=== PATIENT | female | born 1945 | race Caucasian/White ===

== ENCOUNTER 2019-01-10 19:12 | Inpatient (IN) | payer MEDICARE, OTHER ==
[2019-01-10] MEDS ORDERED: LORazepam 2 MG/ML SDV IVPUSH ONE (20:19)
--- NOTE | 2019-01-10 20:20 | EDM.PDOC ---
<BridgerAshley - Last Filed: 01/10/19 22:16> ED HPI GENERAL MEDICAL PROBLEM - General Chief Complaint: Gastrointestinal Problem Stated Complaint: NAUSEA/THROWING UP Time Seen by Provider: 01/10/19 20:00 Source of Information: Reports: Patient, Family History Limitations: Reports: No Limitations - History of Present Illness INITIAL COMMENTS - FREE TEXT/NARRATIVE: Corina Dimas is a 73 year old female who presents to the ED with concerns of nausea and vomiting, which started 1 day ago. She is accompanied by her . She states she has had chronic diarrhea for about 2 years. She states that she feels her vision has not be normal as she cannot focus on objects. She notes the room appears to be spinning. Her states her shakiness occurred a couple of days ago. Her states that she did fall 1 day ago but did not hit her head or lose consciousness. She states she does have epigastric discomfort. She denies abdominal pain, fever, chills, and changes in urination. She does have a past history of seizures. - Related Data Allergies Allergy/AdvReac Type Severity Reaction Status Date / Time codeine AdvReac Nausea Verified 01/10/19 19:35 hydromorphone HCl AdvReac Hallucinati Verified 01/10/19 19:35 [From Dilaudid] ons Home Meds: Home Meds ClonazePAM [KlonoPIN] 1 mg PO BEDTIME 11/27/13 [History] FLUoxetine [PROzac] 80 mg PO DAILY 11/27/13 [History] Metoprolol Tartrate [Lopressor] 25 mg PO Q12HR 11/27/13 [History] Pantoprazole Sodium [Protonix] 40 mg PO DAILY 11/27/13 [History] Verapamil [Verelan] 240 mg PO DAILY 11/27/13 [History] lamoTRIgine [LaMICtal] 175 mg PO BID 11/27/13 [History] Hydrochlorothiazide 25 mg PO DAILY 02/18/16 [History] Famotidine 20 mg PO DAILY 01/10/19 [History] Hyoscyamine [Levsin] 0.125 mg SL TID PRN 01/10/19 [History] ED ROS GENERAL - Review of Systems Review Of Systems: See Below Constitutional: Reports: Weakness, Night Sweats, Decreased Appetite. Denies: Fever, Chills HEENT: Reports: Vertigo, Vision Change Respiratory: Reports: No Symptoms Cardiovascular: Reports: No Symptoms GI/Abdominal: Reports: Diarrhea, Nausea, Vomiting. Denies: Bloody Stool Musculoskeletal: Reports: Muscle Pain, Other (pain in bilateral legs) Neurological: Reports: Tremors. Denies: Headache Psychiatric: Reports: Anxiety ED EXAM, GI/ABD - Physical Exam Exam: See Below Exam Limited By: No Limitations General Appearance: Alert, WD/WN, Anxious, Mild Distress Ears: Normal External Exam, Normal Canal, Normal TMs, Hearing Loss Nose: Normal Inspection, Normal Mucosa Throat/Mouth: Normal Inspection, Normal Lips, Normal Oropharynx Head: Atraumatic, Normocephalic Neck: Normal Inspection, Supple, Non-Tender Respiratory/Chest: No Respiratory Distress, Lungs Clear, No Accessory Muscle Use Cardiovascular: Regular Rate, Rhythm, Other (Murmur noted) GI/Abdominal Exam: Normal Bowel Sounds, Soft, Non-Tender, No Distention, No Mass Extremities: Normal Inspection, Non-Tender, No Pedal Edema Neurological: Alert, CN II-XII Intact, No Motor/Sensory Deficits, Other (Unable to preform finger to nose cerebellar test) Psychiatric: Anxious Skin Exam: Warm, Intact, No Rash Course - Vital Signs Last Recorded V/S: Last Vital Signs Temp 97.4 F 01/11/19 03:00 Pulse 73 01/11/19 03:00 Resp 18 01/11/19 03:00 BP 89/54 L 01/11/19 03:00 Pulse Ox 95 01/11/19 03:00 - Orders/Labs/Meds Orders: Active Orders 24 hr Category Date Time Status Sodium Chloride 0.9% [Normal Saline] 1,000 ml Med 01/10/19 20:30 Active IV ASDIRECTED Sodium Chloride 0.9% [Normal Saline] 1,000 ml Med 01/10/19 21:44 Active IV ONETIME Medication Orders Acetaminophen (Tylenol) 650 mg PO Q4H PRN PRN Reason: Pain (Mild 1-3)/fever Albuterol (Proventil Neb Soln) 2.5 mg NEB Q4H PRN PRN Reason: Shortness Of Breath/wheezing Clonazepam (Klonopin) 1 mg PO BEDTIME [facility] Last Admin: 01/11/19 00:37 Dose: 1 mg Docusate Sodium (Colace) 100 mg PO BID PRN PRN Reason: Constipation Fluoxetine HCl (Prozac) 80 mg PO DAILY [facility] Hydrochlorothiazide (Hydrochlorothiazide) 25 mg PO DAILY [facility] Hyoscyamine (Hyomax-Sl) 0.125 mg SL TID PRN PRN Reason: Nausea Sodium Chloride (Normal Saline) 1,000 mls @ 1,000 mls/hr IV ASDIRECTED [facility] Last Admin: 01/10/19 20:44 Dose: 1,000 mls/hr Sodium Chloride (Normal Saline) 1,000 mls @ 125 mls/hr IV ONETIME ONE Stop: 01/11/19 05:43 Last Admin: 01/10/19 21:45 Dose: 125 mls/hr Influenza Virus Vaccine (Fluzone High-Dose Syringe) 180 mcg IM .ONCE ONE Stop: 01/12/19 09:01 Lamotrigine (Lamotrigine) 100 mg PO BID [facility] Last Admin: 01/11/19 00:37 Dose: 100 mg Lamotrigine (Lamotrigine) 75 mg PO BID [facility] Last Admin: 01/11/19 00:52 Dose: 75 mg Lorazepam (Ativan) 1 mg IV Q4H PRN PRN Reason: Anxiety Metoprolol Tartrate (Lopressor) 25 mg PO BID [facility] Last Admin: 01/11/19 00:37 Dose: 25 mg Ondansetron HCl (Zofran Odt) 4 mg PO Q6H PRN PRN Reason: Nausea able to take PO Ondansetron HCl (Zofran) 4 mg IV Q4H PRN PRN Reason: Nausea/Vomiting Pantoprazole Sodium (Protonix Iv) 40 mg IV BID [facility] Last Admin: 01/11/19 00:34 Dose: 40 mg Verapamil HCl (Calan Sr) 240 mg PO DAILY [facility] Labs: Laboratory Tests 01/10/19 01/10/19 01/10/19 Range/Units 20:19 20:19 20:43 WBC 12.1 H (4.5-11.0) K/uL RBC 3.18 L (3.30-5.50) M/uL Hgb 8.1 L D (12.0-15.0) g/dL Hct 26.0 L (36.0-48.0) % MCV 82 (80-98) fL MCH 26 L (27-31) pg MCHC 31 L (32-36) % Plt Count 764 H (150-400) K/uL Neut % (Auto) 78 H (36-66) % Lymph % (Auto) 10 L (24-44) % Door % (Auto) 11 H (2-6) % Eos % (Auto) 1 L (2-4) % Baso % (Auto) 0 (0-1) % Sodium 130 L (140-148) mmol/L Potassium 3.8 (3.6-5.2) mmol/L Chloride 96 L (100-108) mmol/L Carbon Dioxide 26 (21-32) mmol/L Anion Gap 11.8 (5.0-14.0) mmol/L BUN 21 H (7-18) mg/dL Creatinine 1.2 H (0.6-1.0) mg/dL Est Cr Clr Drug Dosing 30.89 mL/min Estimated GFR (MDRD) 44 L (>60) Glucose 122 H (74-106) mg/dL Calcium 8.2 L (8.5-10.1) mg/dL Total Bilirubin 0.3 (0.2-1.0) mg/dL AST 14 L (15-37) U/L ALT 11 L (12-78) U/L Alkaline Phosphatase 142 H (46-116) U/L Total Protein 7.0 (6.4-8.2) g/dL Albumin 2.4 L (3.4-5.0) g/dL Globulin 4.6 H (2.3-3.5) g/dL Albumin/Globulin Ratio 0.5 L (1.2-2.2) Lipase 95 (73-393) U/L TSH, Ultra Sensitive 4.019 H (0.358-3.740) uIU/mL Meds: Medications Generic Name Dose Route Start Last Admin Trade Name Freq PRN Reason Stop Dose Admin Acetaminophen 650 mg 01/10/19 23:23 Tylenol PO Q4H PRN Pain (Mild 1-3)/fever Albuterol 2.5 mg 01/10/19 23:23 Proventil Neb Soln NEB Q4H PRN Shortness Of Breath/wheezing Clonazepam 1 mg 01/10/19 23:23 01/11/19 00:37 Klonopin PO 1 mg BEDTIME [facility] Administration Docusate Sodium 100 mg 01/10/19 23:23 Colace PO BID PRN Constipation Fluoxetine HCl 80 mg 01/11/19 09:00 Prozac PO DAILY [facility] Hydrochlorothiazide 25 mg 01/11/19 09:00 Hydrochlorothiazide PO DAILY [facility] Hyoscyamine 0.125 mg 01/10/19 23:23 Hyomax-Sl SL TID PRN Nausea Sodium Chloride 1,000 mls @ 1,000 mls/hr 01/10/19 20:30 01/10/19 20:44 Normal Saline IV 1,000 mls/hr ASDIRECTED [facility] Administration Sodium Chloride 1,000 mls @ 125 mls/hr 01/10/19 21:44 01/10/19 21:45 Normal Saline IV 01/11/19 05:43 125 mls/hr ONETIME ONE Administration Influenza Virus Vaccine 180 mcg 01/12/19 09:00 Fluzone High-Dose Syringe IM 01/12/19 09:01 .ONCE ONE Lamotrigine 100 mg 01/10/19 23:45 01/11/19 00:37 Lamotrigine PO 100 mg BID [facility] Administration Lamotrigine 75 mg 01/10/19 23:45 01/11/19 00:52 Lamotrigine PO 75 mg BID [facility] Administration Lorazepam 1 mg 01/10/19 23:23 Ativan IV Q4H PRN Anxiety Metoprolol Tartrate 25 mg 01/10/19 23:23 01/11/19 00:37 Lopressor PO 25 mg BID [facility] Administration Ondansetron HCl 4 mg 01/10/19 23:23 Zofran Odt PO Q6H PRN Nausea able to take PO Ondansetron HCl 4 mg 01/10/19 23:23 Zofran IV Q4H PRN Nausea/Vomiting Pantoprazole Sodium 40 mg 01/10/19 23:23 01/11/19 00:34 Protonix Iv IV 40 mg BID [facility] Administration Verapamil HCl 240 mg 01/11/19 09:00 Calan Sr PO DAILY [facility] Discontinued Medications Generic Name Dose Route Start Last Admin Trade Name Freq PRN Reason Stop Dose Admin Influenza Virus Vaccine 1 each 01/12/19 11:00 Pharmacy To Dose - Influenza Vaccine IM 01/12/19 11:01 ONETIME ONE Lorazepam 0.5 mg 01/10/19 20:19 01/10/19 20:45 Ativan IVPUSH 01/10/19 20:20 0.5 mg ONETIME ONE Administration Non-Formulary Medication 175 mg 01/10/19 23:23 01/11/19 01:26 Lamotrigine [Lamictal] PO Not Given BID [facility] Departure - Departure Disposition: Admitted As Inpatient 68 Clinical Impression: Weakness Anemia Qualifiers: Anemia type: unspecified type Qualified Code(s): D64.9 - Anemia, unspecified - Discharge Information - My Orders Last 24 Hours: My Active Orders 01/10/19 20:30 Sodium Chloride 0.9% [Normal Saline] 1,000 ml IV ASDIRECTED - Assessment/Plan Last 24 Hours: My Active Orders 01/10/19 20:30 Sodium Chloride 0.9% [Normal Saline] 1,000 ml IV ASDIRECTED <Adan Jordan - Last Filed: 01/11/19 05:31> ED HPI GENERAL MEDICAL PROBLEM - General Source of Information: Reports: Patient, Family History Limitations: Reports: No Limitations Past Medical History HEENT History: Reports: Cataract, Hard of Hearing, Impaired Vision Cardiovascular History: Reports: Heart Murmur, High Cholesterol, Hypertension Respiratory History: Reports: Asthma Gastrointestinal History: Reports: Cholelithiasis, Colon Polyp, GERD, Hemorrhoids Genitourinary History: Reports: Urinary Incontinence [employer] History: Reports: Musculoskeletal History: Reports: Back Pain, Chronic, Osteoarthritis Neurological History: Reports: Concussion, Headaches, Chronic, Seizure Psychiatric History: Reports: Aggressive/Hostile Behaviors, Anxiety, Depression , Mood Swings, Panic Attack, Psych Hospitalization(s) Endocrine/Metabolic History: Reports: Obesity/BMI 30+ - Infectious Disease History Infectious Disease History: Reports: Chicken Pox - Past Surgical History Head Surgeries/Procedures: Reports: None HEENT Surgical History: Reports: Cataract Surgery, Tonsillectomy Cardiovascular Surgical History: Reports: None Respiratory Surgical History: Reports: None GI Surgical History: Reports: Cholecystectomy Female Surgical History: Reports: Hysterectomy, Salpingo-Oophorectomy Endocrine Surgical History: Reports: None Neurological Surgical History: Reports: None Musculoskeletal Surgical History: Reports: Carpal Tunnel Dermatological Surgical History: Reports: None Social & Family History - Family History Family Medical History: Noncontributory - Tobacco Use Smoking Status *Q: Never Smoker Second Hand Smoke Exposure: No - Caffeine Use Caffeine Use: Reports: Coffee - Recreational Drug Use Recreational Drug Use: Yes Recreational Drug Type: Reports: Marijuana/Hashish Recreational Drug Use Frequency: Daily Course - Orders/Labs/Meds Labs: Laboratory Tests 01/10/19 01/10/19 01/10/19 Range/Units 20:19 20:19 20:43 WBC 12.1 H (4.5-11.0) K/uL RBC 3.18 L (3.30-5.50) M/uL Hgb 8.1 L D (12.0-15.0) g/dL Hct 26.0 L (36.0-48.0) % MCV 82 (80-98) fL MCH 26 L (27-31) pg MCHC 31 L (32-36) % Plt Count 764 H (150-400) K/uL Neut % (Auto) 78 H (36-66) % Lymph % (Auto) 10 L (24-44) % Door % (Auto) 11 H (2-6) % Eos % (Auto) 1 L (2-4) % Baso % (Auto) 0 (0-1) % Sodium 130 L (140-148) mmol/L Potassium 3.8 (3.6-5.2) mmol/L Chloride 96 L (100-108) mmol/L Carbon Dioxide 26 (21-32) mmol/L Anion Gap 11.8 (5.0-14.0) mmol/L BUN 21 H (7-18) mg/dL Creatinine 1.2 H (0.6-1.0) mg/dL Est Cr Clr Drug Dosing 30.89 mL/min Estimated GFR (MDRD) 44 L (>60) Glucose 122 H (74-106) mg/dL Calcium 8.2 L (8.5-10.1) mg/dL Total Bilirubin 0.3 (0.2-1.0) mg/dL AST 14 L (15-37) U/L ALT 11 L (12-78) U/L Alkaline Phosphatase 142 H (46-116) U/L Total Protein 7.0 (6.4-8.2) g/dL Albumin 2.4 L (3.4-5.0) g/dL Globulin 4.6 H (2.3-3.5) g/dL Albumin/Globulin Ratio 0.5 L (1.2-2.2) Lipase 95 (73-393) U/L TSH, Ultra Sensitive 4.019 H (0.358-3.740) uIU/mL Meds: Medications Generic Name Dose Route Start Last Admin Trade Name Freq PRN Reason Stop Dose Admin Acetaminophen 650 mg 01/10/19 23:23 Tylenol PO Q4H PRN Pain (Mild 1-3)/fever Albuterol 2.5 mg 01/10/19 23:23 Proventil Neb Soln NEB Q4H PRN Shortness Of Breath/wheezing Clonazepam 1 mg 01/10/19 23:23 01/11/19 00:37 Klonopin PO 1 mg BEDTIME [facility] Administration Docusate Sodium 100 mg 01/10/19 23:23 Colace PO BID PRN Constipation Fluoxetine HCl 80 mg 01/11/19 09:00 Prozac PO DAILY [facility] Hydrochlorothiazide 25 mg 01/11/19 09:00 Hydrochlorothiazide PO DAILY [facility] Hyoscyamine 0.125 mg 01/10/19 23:23 Hyomax-Sl SL TID PRN Nausea Sodium Chloride 1,000 mls @ 1,000 mls/hr 01/10/19 20:30 01/10/19 20:44 Normal Saline IV 1,000 mls/hr ASDIRECTED [facility] Administration Sodium Chloride 1,000 mls @ 125 mls/hr 01/10/19 21:44 01/10/19 21:45 Normal Saline IV 01/11/19 05:43 125 mls/hr ONETIME ONE Administration Influenza Virus Vaccine 180 mcg 01/12/19 09:00 Fluzone High-Dose Syringe IM 01/12/19 09:01 .ONCE ONE Lamotrigine 100 mg 01/10/19 23:45 01/11/19 00:37 Lamotrigine PO 100 mg BID [facility] Administration Lamotrigine 75 mg 01/10/19 23:45 01/11/19 00:52 Lamotrigine PO 75 mg BID [facility] Administration Lorazepam 1 mg 01/10/19 23:23 Ativan IV Q4H PRN Anxiety Metoprolol Tartrate 25 mg 01/10/19 23:23 01/11/19 00:37 Lopressor PO 25 mg BID [facility] Administration Ondansetron HCl 4 mg 01/10/19 23:23 Zofran Odt PO Q6H PRN Nausea able to take PO Ondansetron HCl 4 mg 01/10/19 23:23 Zofran IV Q4H PRN Nausea/Vomiting Pantoprazole Sodium 40 mg 01/10/19 23:23 01/11/19 00:34 Protonix Iv IV 40 mg BID [facility] Administration Verapamil HCl 240 mg 01/11/19 09:00 Calan Sr PO DAILY [facility] Discontinued Medications Generic Name Dose Route Start Last Admin Trade Name Freq PRN Reason Stop Dose Admin Influenza Virus Vaccine 1 each 01/12/19 11:00 Pharmacy To Dose - Influenza Vaccine IM 01/12/19 11:01 ONETIME ONE Lorazepam 0.5 mg 01/10/19 20:19 01/10/19 20:45 Ativan IVPUSH 01/10/19 20:20 0.5 mg ONETIME ONE Administration Non-Formulary Medication 175 mg 01/10/19 23:23 01/11/19 01:26 Lamotrigine [Lamictal] PO Not Given BID [facility] - Re-Assessments/Exams Free Text/Narrative Re-Assessment/Exam: 01/10/19 21:21 Patient was given 0.5 mg of IV Ativan and a CBC and CMP was drawn. Hemoglobin returned at only 8.1, compared to a level of 11 3 months ago. She has had hemoglobin levels as low as 8.6 in the past. The IV Ativan helped her anxiety. Creatinine returned elevated as well as low GFR compared to past readings. She may have some volume contraction as well as anemia. I think she needs IV hydration overnight which could possibly drive a hemoglobin down further so she'll be admitted and followed. Departure - Departure Time of Disposition: 23:18 Condition: Fair
[2019-01-10] MEDS: Sodium Chloride 0.9% 1,000 ML IV SCH (20:44)
[2019-01-10] MEDS ORDERED: Sodium Chloride 0.9% 1,000 ML IV ONE (21:44)
--- NOTE | 2019-01-10 22:54 | PCM.HP ---
H&P History of Present Illness - General Date of Service: 01/10/19 Admit Problem/Dx: Admission Diagnosis/Problem Admission Diagnosis/Problem Anemia Source of Information: Patient History Limitations: Reports: No Limitations - History of Present Illness Initial Comments - Free Text/Narative: - History of Present Illness INITIAL COMMENTS - FREE TEXT/NARRATIVE: Corina Dimas is a 73 year old female who presents to the ED with concerns of nausea and vomiting, which started 1 day ago. She is accompanied by her . She states she has had chronic diarrhea for about 2 years. She states that she feels her vision has not be normal as she cannot focus on objects. She notes the room appears to be spinning. Her states her shakiness occurred a couple of days ago. Her states that she did fall 1 day ago but did not hit her head or lose consciousness. She states she does have epigastric discomfort. She denies abdominal pain, fever, chills, and changes in urination. She does have a past history of seizures. Onset of Symptoms: Reports: Gradual Symptom Onset Date: 01/09/19 Duration of Symptoms: Reports: Day(s): (one) Location: Reports: Abdomen, Generalized (tremors and shakiness) Improves with: Reports: None Worsens with: Reports: None Associated Symptoms: Reports: Nausea/Vomiting, Weakness - Related Data Allergies/Adverse Reactions: Allergies Allergy/AdvReac Type Severity Reaction Status Date / Time codeine AdvReac Nausea Verified 01/10/19 19:35 hydromorphone HCl AdvReac Hallucinati Verified 01/10/19 19:35 [From Dilaudid] ons Home Medications: Home Meds ClonazePAM [KlonoPIN] 1 mg PO BEDTIME 11/27/13 [History] FLUoxetine [PROzac] 80 mg PO DAILY 11/27/13 [History] Metoprolol Tartrate [Lopressor] 25 mg PO Q12HR 11/27/13 [History] Pantoprazole Sodium [Protonix] 40 mg PO DAILY 11/27/13 [History] Verapamil [Verelan] 240 mg PO DAILY 11/27/13 [History] lamoTRIgine [LaMICtal] 175 mg PO BID 11/27/13 [History] Hydrochlorothiazide 25 mg PO DAILY 02/18/16 [History] Famotidine 20 mg PO DAILY 01/10/19 [History] Hyoscyamine [Levsin] 0.125 mg SL TID PRN 01/10/19 [History] Past Medical History HEENT History: Reports: Cataract, Hard of Hearing, Impaired Vision Cardiovascular History: Reports: Heart Murmur, High Cholesterol, Hypertension Respiratory History: Reports: Asthma Gastrointestinal History: Reports: Cholelithiasis, Colon Polyp, GERD, Hemorrhoids Genitourinary History: Reports: Urinary Incontinence 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: Musculoskeletal History: Reports: Back Pain, Chronic, Osteoarthritis Neurological History: Reports: Concussion, Headaches, Chronic, Seizure Psychiatric History: Reports: Aggressive/Hostile Behaviors, Anxiety, Depression , Mood Swings, Panic Attack, Psych Hospitalization(s) Endocrine/Metabolic History: Reports: Obesity/BMI 30+ - Infectious Disease History Infectious Disease History: Reports: Chicken Pox - Past Surgical History Head Surgeries/Procedures: Reports: None HEENT Surgical History: Reports: Cataract Surgery, Tonsillectomy Cardiovascular Surgical History: Reports: None Respiratory Surgical History: Reports: None GI Surgical History: Reports: Cholecystectomy Female Surgical History: Reports: Hysterectomy, Salpingo-Oophorectomy Endocrine Surgical History: Reports: None Neurological Surgical History: Reports: None Musculoskeletal Surgical History: Reports: Carpal Tunnel Dermatological Surgical History: Reports: None Social & Family History - Family History Family Medical History: Noncontributory - Tobacco Use Smoking Status *Q: Never Smoker Second Hand Smoke Exposure: No - Caffeine Use Caffeine Use: Reports: Coffee - Recreational Drug Use Recreational Drug Use: Yes Recreational Drug Type: Reports: Marijuana/Hashish Recreational Drug Use Frequency: Daily - Living Situation & Occupation Living situation: Reports: , with Family (lives with Ham in [place], [place]. reports raised 5 children: 4 children of her own and 1 extra) H&P Review of Systems - Review of Systems: Review Of Systems: See Below General: Reports: Weakness, Night Sweats, Decreased Appetite HEENT: Reports: Glasses, Vertigo, Visual Changes Pulmonary: Reports: No Symptoms Cardiovascular: Reports: No Symptoms Gastrointestinal: Reports: Abdominal Pain (pain in epigastric area for a couple of days), Diarrhea (chronic diarrhea for 2 years), Nausea, Vomiting Genitourinary: Reports: Incontinence Musculoskeletal: Reports: No Symptoms Skin: Reports: No Symptoms Psychiatric: Reports: Depression, Anxiety (acute and chronic) Neurological: Reports: Pre-Existing Deficit, Tremors (for one day), Weakness Hematologic/Lymphatic: Reports: Anemia Immunologic: Reports: No Symptoms Exam - Exam Exam: See Below - Vital Signs Vital Signs: Last Vital Signs Temp 36.4 C 01/10/19 22:02 Pulse 79 01/10/19 22:02 Resp 16 01/10/19 22:02 BP 114/47 L 01/10/19 22:02 Pulse Ox 96 01/10/19 22:02 Weight: 47.174 kg - Exam General: Alert, Oriented, Cooperative, Mild Distress HEENT: PERRLA, Conjunctiva Clear, EACs Clear, EOMI, Hearing Intact, Mucosa Moist & [place], Nares Patent, Normal Nasal Septum, Glasses Neck: Supple, Trachea Midline Lungs: Clear to Auscultation, Normal Respiratory Effort Cardiovascular: Regular Rate, Regular Rhythm, Normal S1, Normal S2, Other ( murmur present) GI/Abdominal Exam: Normal Bowel Sounds, Soft, Tender (epigastric ) (Female) Exam: Normal External Exam Rectal (Female) Exam: Normal Exam, Normal Rectal Tone, Heme - Stool, Hemorrhoids Back Exam: Normal Inspection, Full Range of Motion Extremities: Normal Inspection, Normal Range of Motion, Non-Tender, No Pedal Edema, Normal Capillary Refill Skin: Warm, Dry, Intact Neurological: Strength Equal Bilateral, Normal Speech, Normal Tone Neuro Extensive - Mental Status: Alert, Normal Mood/Affect Psychiatric: Alert, Normal Affect, Normal Mood, Anxious (given 0.5 mg IV Ativan in ER, very calm at time of exam. prior to this agitation and tremors) - Patient Data Lab Results Last 24 hrs: Laboratory Results - last 24 hr 01/10/19 01/10/19 01/10/19 Range/Units 20:19 20:19 20:43 WBC 12.1 H (4.5-11.0) K/uL RBC 3.18 L (3.30-5.50) M/uL Hgb 8.1 L D (12.0-15.0) g/dL Hct 26.0 L (36.0-48.0) % MCV 82 (80-98) fL MCH 26 L (27-31) pg MCHC 31 L (32-36) % Plt Count 764 H (150-400) K/uL Neut % (Auto) 78 H (36-66) % Lymph % (Auto) 10 L (24-44) % [place] % (Auto) 11 H (2-6) % Eos % (Auto) 1 L (2-4) % Baso % (Auto) 0 (0-1) % Sodium 130 L (140-148) mmol/L Potassium 3.8 (3.6-5.2) mmol/L Chloride 96 L (100-108) mmol/L Carbon Dioxide 26 (21-32) mmol/L Anion Gap 11.8 (5.0-14.0) mmol/L BUN 21 H (7-18) mg/dL Creatinine 1.2 H (0.6-1.0) mg/dL Est Cr Clr Drug Dosing 30.89 mL/min Estimated GFR (MDRD) 44 L (>60) Glucose 122 H (74-106) mg/dL Calcium 8.2 L (8.5-10.1) mg/dL Total Bilirubin 0.3 (0.2-1.0) mg/dL AST 14 L (15-37) U/L ALT 11 L (12-78) U/L Alkaline Phosphatase 142 H (46-116) U/L Total Protein 7.0 (6.4-8.2) g/dL Albumin 2.4 L (3.4-5.0) g/dL Globulin 4.6 H (2.3-3.5) g/dL Albumin/Globulin Ratio 0.5 L (1.2-2.2) Lipase 95 (73-393) U/L TSH, Ultra Sensitive 4.019 H (0.358-3.740) uIU/mL Result Diagrams: 01/10/19 20:19 01/10/19 20:19 - Problem List (1) Anemia SNOMED Code(s): 196592294 ICD Code: D64.9 - ANEMIA, UNSPECIFIED Status: Acute Priority: High Current Visit: Yes Qualifiers: Anemia type: unspecified type Qualified Code(s): D64.9 - Anemia, unspecified (2) Hypertension SNOMED Code(s): 87834498 ICD Code: I10 - ESSENTIAL (PRIMARY) HYPERTENSION Status: Acute Priority: High Current Visit: Yes Qualifiers: Hypertension type: unspecified Qualified Code(s): I10 - Essential (primary ) hypertension (3) Anxiety SNOMED Code(s): 06112326 ICD Code: F41.9 - ANXIETY DISORDER, UNSPECIFIED Status: Acute Priority: High Current Visit: Yes (4) Weakness SNOMED Code(s): 05475260 ICD Code: R53.1 - WEAKNESS Status: Acute Priority: High Current Visit: Yes Problem List Initiated/Reviewed/Updated: Yes Orders Last 24hrs: Active Orders 24 hr Category Date Time Status Patient Status Manage Transfer [TRANSFER] Routine ADT 01/10/19 22:28 Ordered Sodium Chloride 0.9% [Normal Saline] 1,000 ml Med 01/10/19 20:30 Active IV ASDIRECTED Sodium Chloride 0.9% [Normal Saline] 1,000 ml Med 01/10/19 21:44 Active IV ONETIME Resuscitation Status Routine Resus Stat 01/10/19 22:29 Ordered Medication Orders Sodium Chloride (Normal Saline) 1,000 mls @ 1,000 mls/hr IV ASDIRECTED ELLYN Last Admin: 01/10/19 20:44 Dose: 1,000 mls/hr Sodium Chloride (Normal Saline) 1,000 mls @ 125 mls/hr IV ONETIME ONE Stop: 01/11/19 05:43 Last Admin: 01/10/19 21:45 Dose: 125 mls/hr Assessment/Plan Comment:: ASSESSMENT / PLAN - History of Present Illness: nausea and vomiting x 1 day, tremor, shakes Corina Dimas is a 73 year old female who presents to the ED with concerns of nausea and vomiting, which started 1 day ago. She is accompanied by her . She states she has had chronic diarrhea for about 2 years. She states that she feels her vision has not be normal as she cannot focus on objects. She notes the room appears to be spinning. Her states her shakiness occurred a couple of days ago. Her states that she did fall 1 day ago but did not hit her head or lose consciousness. She states she does have epigastric discomfort. She denies abdominal pain, fever, chills, and changes in urination. She does have a past history of seizures. Lab values = CBC hemoglobin 8.1, was 11 on 10/24/19, fecal occult stool negative Plan Called discussed case with hospitalist collection support specialist agreed to come and evaluate the patient in the emergency department for admission Anemia -Admit to [address] [place] [address] for further monitoring -IV Fluids for rehydration NS 125 mL per hour -Type and Screen for 2 units, do not give at this time -IV Protonix 40mg every 12 hours -NPO after Midnight -EGD in am, Surgeon collection support specialist notified -And a.m. labs: CBC, BMP Anxiety -continue home medications Hypertension -continue home medications Maintenance issues -Orders home meds: -Nutrition: NPO after midnight -Fernando catheter not indicated at this time -DVT: SCD -PPI; IV Protonix 40mg every 12 hours CODE STATUS: FULL Admission status: Admit to [address] [place] [address] Admission justification. This patient will be admitted for inpatient services and is medically appropriate meeting medical necessity for inpatient admission as outlined in my documentation. I reasonably expect the patient will require inpatient services that span. Time over 2 midnights. I reasonably expect this patient to be discharged or transferred within 96 hours after admission to the critical access hospital. Disposition: home Primary care provider: Dr. Goddard, [place], [place]. Hospitalist: Dr. Austin
[2019-01-10] MEDS ORDERED: Docusate Sodium 100 MG Cap PO PRN (23:23)
[2019-01-10] MEDS ORDERED: Hyoscyamine 0.125 MG Tab.SL SL PRN (23:23)
[2019-01-10] MEDS ORDERED: Ondansetron 4 MG Tab.DIS PO PRN (23:23)
[2019-01-10] MEDS ORDERED: LAMOTRIGINE PO SCH (23:23)
[2019-01-10] MEDS ORDERED: Ondansetron 4 MG/2 ML SDV IV PRN (23:23)
[2019-01-11] MEDS: Pantoprazole 40 MG Vial IV SCH ×2 (00:34→11:01)
[2019-01-11] MEDS: Metoprolol Tartrate 25 MG Tab PO SCH ×3 (00:37→21:09)
[2019-01-11] MEDS: ClonazePAM 1 MG Tab PO SCH ×2 (00:37→20:20)
[2019-01-11] MEDS: lamoTRIgine 100 MG Tab PO SCH ×3 (00:37→21:08)
[2019-01-11] MEDS: lamoTRIgine 25 MG Tab PO SCH ×3 (00:52→21:08)
[2019-01-11] MEDS: Sodium Chloride 0.9% 1,000 ML IV SCH (06:17)
[2019-01-11] MEDS ORDERED: Potassium Chloride Riders 40 MEQ in Premix Bag 1 BAG IV ONE (08:31)
[2019-01-11] MEDS ORDERED: FLUoxetine Solution 20 MG/5 ML ML 120 ML Bottle PO SCH (09:00)
[2019-01-11] MEDS ORDERED: Propofol 200 MG/20 ML SDV ONE (09:34)
[2019-01-11] MEDS: Potassium Chloride 20 MEQ, Lidocaine 1% 2 ML in Sodium Chloride 0.9% 100 ML IV SCH ×2 (10:53→17:25)
[2019-01-11] MEDS: Verapamil 120 MG Tab.ER PO SCH (10:58)
[2019-01-11] MEDS: Hydrochlorothiazide 25 MG Tab PO SCH (10:59)
[2019-01-11] MEDS: LORazepam 2 MG/ML SDV IV PRN (14:54)
--- NOTE | 2019-01-11 14:58 | PCM.PN ---
- General Info Date of Service: 01/11/19 Subjective Update: Ms. Dimas is a 73-year-old woman who is admitted through the emergency department last night with anemia as well as nausea and vomiting. She is been given IV fluids through the night, hemoglobin has dropped to 7.5 from 8.0. She denies recent history of hematemesis melena or hematochezia. She has been dealing with chronic abdominal pain and loose stools for some time. EGD was performed this morning by Dr. Espinoza and showed only mild gastritis. We discussed further evaluation including colonoscopy which she has refused. Functional Status: Reports: Tolerating Diet, Urinating - Review of Systems General: Denies: Fever, Weakness, Chills Pulmonary: Reports: No Symptoms Cardiovascular: Reports: No Symptoms Gastrointestinal: Reports: No Symptoms - Patient Data Vitals - Most Recent: Last Vital Signs Temp 99.8 F 01/11/19 14:45 Pulse 71 01/11/19 14:45 Resp 16 01/11/19 14:45 BP 107/78 01/11/19 14:45 Pulse Ox 94 L 01/11/19 14:03 Weight - Most Recent: 106 lb 9.002 oz I&O - Last 24 Hours: Intake & Output 01/10/19 01/11/19 01/11/19 22:59 06:59 14:59 Intake Total 150 Output Total 400 Balance -250 Lab Results Last 24 Hours: Laboratory Results - last 24 hr 01/10/19 01/10/19 01/10/19 Range/Units 20:19 20:19 20:43 WBC 12.1 H (4.5-11.0) K/uL RBC 3.18 L (3.30-5.50) M/uL Hgb 8.1 L D (12.0-15.0) g/dL Hct 26.0 L (36.0-48.0) % MCV 82 (80-98) fL MCH 26 L (27-31) pg MCHC 31 L (32-36) % Plt Count 764 H (150-400) K/uL Neut % (Auto) 78 H (36-66) % Lymph % (Auto) 10 L (24-44) % [place] % (Auto) 11 H (2-6) % Eos % (Auto) 1 L (2-4) % Baso % (Auto) 0 (0-1) % Sodium 130 L (140-148) mmol/L Potassium 3.8 (3.6-5.2) mmol/L Chloride 96 L (100-108) mmol/L Carbon Dioxide 26 (21-32) mmol/L Anion Gap 11.8 (5.0-14.0) mmol/L BUN 21 H (7-18) mg/dL Creatinine 1.2 H (0.6-1.0) mg/dL Est Cr Clr Drug Dosing 30.89 mL/min Estimated GFR (MDRD) 44 L (>60) Glucose 122 H (74-106) mg/dL Calcium 8.2 L (8.5-10.1) mg/dL Total Bilirubin 0.3 (0.2-1.0) mg/dL AST 14 L (15-37) U/L ALT 11 L (12-78) U/L Alkaline Phosphatase 142 H (46-116) U/L Total Protein 7.0 (6.4-8.2) g/dL Albumin 2.4 L (3.4-5.0) g/dL Globulin 4.6 H (2.3-3.5) g/dL Albumin/Globulin Ratio 0.5 L (1.2-2.2) Lipase 95 (73-393) U/L TSH, Ultra Sensitive 4.019 H (0.358-3.740) uIU/mL Blood Type Gel Antibody Screen Crossmatch 01/10/19 01/11/19 01/11/19 Range/Units 22:30 04:45 04:45 WBC 10.8 (4.5-11.0) K/uL RBC 2.93 L (3.30-5.50) M/uL Hgb 7.5 L (12.0-15.0) g/dL Hct 24.2 L (36.0-48.0) % MCV 83 (80-98) fL MCH 26 L (27-31) pg MCHC 31 L (32-36) % Plt Count 726 H (150-400) K/uL Neut % (Auto) 71 H (36-66) % Lymph % (Auto) 15 L (24-44) % [place] % (Auto) 12 H (2-6) % Eos % (Auto) 1 L (2-4) % Baso % (Auto) 0 (0-1) % Sodium 133 L (140-148) mmol/L Potassium 3.4 L (3.6-5.2) mmol/L Chloride 101 (100-108) mmol/L Carbon Dioxide 23 (21-32) mmol/L Anion Gap 12.4 (5.0-14.0) mmol/L BUN 18 (7-18) mg/dL Creatinine 0.9 (0.6-1.0) mg/dL Est Cr Clr Drug Dosing 41.18 mL/min Estimated GFR (MDRD) > 60 (>60) Glucose 109 H (74-106) mg/dL Calcium 7.6 L (8.5-10.1) mg/dL Total Bilirubin (0.2-1.0) mg/dL AST (15-37) U/L ALT (12-78) U/L Alkaline Phosphatase (46-116) U/L Total Protein (6.4-8.2) g/dL Albumin (3.4-5.0) g/dL Globulin (2.3-3.5) g/dL Albumin/Globulin Ratio (1.2-2.2) Lipase (73-393) U/L TSH, Ultra Sensitive (0.358-3.740) uIU/mL Blood Type A POSITIVE Gel Antibody Screen Negative Crossmatch See Detail Cecilio Results Last 24 Hours: Microbiology 01/10/19 23:23 Stool Occult Blood (CECILIO) - Final Stool / Feces NEGATIVE OCCULT BLOOD Med Orders - Current: Current Medications Acetaminophen (Tylenol) 650 mg PO Q4H PRN PRN Reason: Pain (Mild 1-3)/fever Albuterol (Proventil Neb Soln) 2.5 mg NEB Q4H PRN PRN Reason: Shortness Of Breath/wheezing Clonazepam (Klonopin) 1 mg PO BEDTIME LELYN Last Admin: 01/11/19 00:37 Dose: 1 mg Docusate Sodium (Colace) 100 mg PO BID PRN PRN Reason: Constipation Fluoxetine HCl (Prozac) 80 mg PO DAILY ELLYN Hydrochlorothiazide (Hydrochlorothiazide) 25 mg PO DAILY ELLYN Last Admin: 01/11/19 10:59 Dose: 25 mg Hyoscyamine (Hyomax-Sl) 0.125 mg SL TID PRN PRN Reason: Nausea Influenza Virus Vaccine (Fluzone High-Dose Syringe) 180 mcg IM .ONCE ONE Stop: 01/12/19 09:01 Lamotrigine (Lamotrigine) 100 mg PO BID [facility] Last Admin: 01/11/19 11:00 Dose: 100 mg Lamotrigine (Lamotrigine) 75 mg PO BID [facility] Last Admin: 01/11/19 10:58 Dose: 75 mg Lorazepam (Ativan) 1 mg IV Q4H PRN PRN Reason: Anxiety Metoprolol Tartrate (Lopressor) 25 mg PO BID [facility] Last Admin: 01/11/19 11:23 Dose: 25 mg Ondansetron HCl (Zofran Odt) 4 mg PO Q6H PRN PRN Reason: Nausea able to take PO Ondansetron HCl (Zofran) 4 mg IV Q4H PRN PRN Reason: Nausea/Vomiting Oxycodone HCl (Oxycodone) 5 mg PO Q4H PRN PRN Reason: Pain Pantoprazole Sodium (Protonix) 40 mg PO DAILY@0730 [facility] Verapamil HCl (Calan Sr) 240 mg PO DAILY [facility] Last Admin: 01/11/19 10:58 Dose: 240 mg Discontinued Medications Fluoxetine HCl (Prozac) 80 mg PO DAILY [facility] Last Admin: 01/11/19 11:00 Dose: 80 mg Sodium Chloride (Normal Saline) 1,000 mls @ 1,000 mls/hr IV ASDIRECTED [facility] Last Admin: 01/11/19 06:17 Dose: 1,000 mls/hr Sodium Chloride (Normal Saline) 1,000 mls @ 125 mls/hr IV ONETIME ONE Stop: 01/11/19 05:43 Last Admin: 01/10/19 21:45 Dose: 125 mls/hr Potassium Chloride 20 meq/Lidocaine HCl 2 ml/ Sodium Chloride 112 mls @ 50 mls/ hr IV Q2H [facility] Stop: 01/11/19 13:59 Last Admin: 01/11/19 10:53 Dose: 50 mls/hr Influenza Virus Vaccine (Pharmacy To Dose - Influenza Vaccine) 1 each IM ONETIME ONE Stop: 01/12/19 11:01 Lorazepam (Ativan) 0.5 mg IVPUSH ONETIME ONE Stop: 01/10/19 20:20 Last Admin: 01/10/19 20:45 Dose: 0.5 mg Non-Formulary Medication (Lamotrigine [Lamictal]) 175 mg PO BID [facility] Last Admin: 01/11/19 01:26 Dose: Not Given Pantoprazole Sodium (Protonix Iv) 40 mg IV BID [facility] Last Admin: 01/11/19 11:01 Dose: 40 mg Propofol (Diprivan 20 Ml) Confirm Administered Dose 200 mg .ROUTE .STK-MED ONE Stop: 01/11/19 09:35 - Exam Quality Assessment: DVT Prophylaxis General: Alert, Oriented, Cooperative, Mild Distress Lungs: Clear to Auscultation, Normal Respiratory Effort Cardiovascular: Regular Rate, Regular Rhythm, No Murmurs GI/Abdominal Exam: Soft, No Organomegaly, Tender. No: Distended, Guarding, Rigid, Rebound Extremities: Non-Tender, No Pedal Edema - Problem List Review Problem List Initiated/Reviewed/Updated: Yes - My Orders Last 24 Hours: My Active Orders 01/11/19 11:26 Consult to Physical Therapy [PT Evaluation and Treatment] [CONS] Routine 01/11/19 11:27 Transfuse Red Blood Cells [COMM] Urgent 01/11/19 11:28 Convert IV to Saline Lock [OM.PC] Routine 01/11/19 14:52 oxyCODONE 5 mg PO Q4H PRN 01/11/19 17:00 HGB [HEMOGLOBIN] [HEME] Stat 01/11/19 Lunch GI Soft Low Fiber [Soft Diet] [DIET] 01/12/19 05:00 BASIC METABOLIC PANEL,BMP [CHEM] Timed CBC WITH AUTO DIFF [HEME] Timed 01/12/19 07:30 Pantoprazole [ProTONIX] 40 mg PO DAILY@0730 01/12/19 09:00 FLU Vacc [id number](65YR UP)/PF [Fluzone High-Dose Syringe] 180 mcg IM .ONCE ONE - Plan Plan:: ASSESSMENT / PLAN Anemia-no obvious signs of bleeding on history, EGD this morning remarkable only for mild gastritis. I've recommended further evaluation with colonoscopy which the patient refuses. -Saline lock IV -Transfuse one unit of red blood cells -Protonix 40 mg by mouth daily -Soft low residue diet -Serial hemoglobin levels Anxiety -continue home medications Hypertension -continue home medications Maintenance issues -Orders home meds: -Nutrition: Soft low residue diet -Fernando catheter not indicated at this time -DVT: SCD -PPI; oral Protonix as above CODE STATUS: FULL Admission status: Admit to [address] [place] [address] Admission justification. This patient will be admitted for inpatient services and is medically appropriate meeting medical necessity for inpatient admission as outlined in my documentation. I reasonably expect the patient will require inpatient services that span. Time over 2 midnights. I reasonably expect this patient to be discharged or transferred within 96 hours after admission to the critical psychiatric hospital hospital. Disposition: home Primary care provider: Dr. Goddard, [place], [place]. Hospitalist: Dr. Austin
[2019-01-11] MEDS: oxyCODONE 5 MG Tab PO PRN ×2 (15:04→20:20)
[2019-01-11] MEDS: Acetaminophen 325 MG Tab PO PRN (20:20)
[2019-01-12] MEDS ORDERED: Pantoprazole 40 MG Tab.CR PO SCH (07:30)
[2019-01-12] MEDS: Verapamil 120 MG Tab.ER PO SCH (08:44)
[2019-01-12] MEDS: lamoTRIgine 100 MG Tab PO SCH ×2 (08:44→21:07)
[2019-01-12] MEDS: Metoprolol Tartrate 25 MG Tab PO SCH ×2 (08:45→21:07)
[2019-01-12] MEDS: Hydrochlorothiazide 25 MG Tab PO SCH (08:45)
[2019-01-12] MEDS: lamoTRIgine 25 MG Tab PO SCH ×2 (08:45→21:07)
[2019-01-12] MEDS: FLUoxetine Solution 20 MG/5 ML ML 120 ML Bottle PO SCH (08:46)
[2019-01-12] MEDS ORDERED: HYDROmorphone 0.5 MG/0.5 ML Syringe IVPUSH ONE (12:00)
[2019-01-12] MEDS: Naloxone 0.4 MG/ML SDV IVPUSH PRN ×2 (12:15→12:25)
[2019-01-12] MEDS: Naloxone 0.4 MG/ML SDV ONE ×2 (12:15→12:24)
[2019-01-12] MEDS ORDERED: Furosemide 20 MG/2 ML VIAL ONE (12:29)
[2019-01-12] MEDS ORDERED: Furosemide 20 MG/2 ML VIAL IVPUSH ONE (12:30)
[2019-01-12] MEDS ORDERED: LORazepam 2 MG/ML SDV IVPUSH ONE (13:36)
--- NOTE | 2019-01-12 13:39 | CRLCR ---
HISTORY: Respiratory distress. FINDINGS: Single AP view of the chest is provided. Patchy opacity is seen diffusely throughout both lungs in a partially perihilar distribution. No pneumothorax is seen. Cardiac silhouette size is prominently enlarged. IMPRESSION: Likely congestive heart failure. Alternative considerations include bilateral pneumonia or ARDS. Dictated by Keyur De Anda MD @ Jan 12 2019 1:37PM Signed by Dr. Keyur De Anda @ Jan 12 2019 1:37PM
[2019-01-12] MEDS ORDERED: Heparin Sodium 5,000 UNITS in Sodium Chloride 0.9% 500 ML IV SCH (13:45)
[2019-01-12] MEDS ORDERED: Propofol 200 MG/20 ML SDV ONE (14:00)
[2019-01-12] MEDS ORDERED: Vancomycin 1 GM SDV IV SCH (14:00)
--- NOTE | 2019-01-12 14:42 | CRLCR ---
HISTORY: Post intubation. Portable chest. COMPARISON: Chest x-ray 01/12/2019. Findings: Stable enlarged cardiac silhouette. Endotracheal tube 2.5 cm above the dolores. Diffuse interstitial and perihilar airspace opacities. No pneumothorax. Possible small left effusion. Impression 1. Endotracheal tube 2.5 centimeters above the dolores. 2. Perihilar interstitial airspace opacities may represent pulmonary edema. Cardiomegaly. Dictated by Cynthia Riggs MD @ Jan 12 2019 2:38PM Signed by Dr. Cynthia Riggs @ Jan 12 2019 2:39PM
[2019-01-12] MEDS: Pantoprazole 40 MG Vial IVPUSH SCH ×2 (14:53→16:46)
[2019-01-12] MEDS: Piperacillin/Tazobactam/Dext 3.375 GM in Premix Bag 1 BAG IV SCH ×2 (14:54→20:07)
[2019-01-12] MEDS ORDERED: Potassium Chloride Riders 40 MEQ in Premix Bag 1 BAG IV ONE (15:30)
[2019-01-12] MEDS ORDERED: Furosemide 40 MG/4 ML VIAL IVPUSH ONE (15:36)
[2019-01-12] MEDS: Enoxaparin 40 MG/0.4 ML Syringe SUBCUT SCH (15:54)
--- NOTE | 2019-01-12 16:01 | PCM.PN ---
- General Info Date of Service: 01/12/19 Subjective Update: Ms. Dimas was stable overnight and hemoglobin has remained within the desired range following transfusion of one unit of red blood cells yesterday. There is been no further evidence of active bleeding. Unfortunately this morning was noted to have developed respiratory compromise, with increase in respiratory rate and decreased oxygen saturations. White blood cell count had been previously normal and now elevated at 20,000, she has not had a significant temperature elevation thus far. She experienced further deterioration late morning or early afternoon with increasing respiratory rate into the 30s. Blood gases were obtained and show hypoxia with a PO2 of 54 and a PCO2 of 28. Chest x- ray shows bilateral pulmonary infiltrates, congestive heart failure, versus infection, versus ARDS. She has received furosemide 20 mg IV and did have 500 mL of fluid out with this, without significant improvement in respiratory status. She was intolerant of supplemental oxygen via this mask and a was not felt to be a candidate for BiPAP. She is been intubated and placed on mechanical ventilation. Oxygenation has been good following intubation and mechanical ventilation. - Review of Systems General: Reports: Weakness. Denies: Fever, Chills Pulmonary: Reports: Shortness of Breath. Denies: Pleuritic Chest Pain, Cough, Sputum, Hemoptysis, Wheezing Cardiovascular: Reports: Dyspnea on Exertion. Denies: Chest Pain, Palpitations , Orthopnea, PND, Edema, Lightheadedness Gastrointestinal: Reports: Abdominal Pain. Denies: Decreased Appetite, Difficulty Swallowing, Nausea, Vomiting - Patient Data Vitals - Most Recent: Last Vital Signs Temp 0.9 F L 01/12/19 12:48 Pulse 92 01/12/19 12:48 Resp 24 H 01/12/19 12:48 BP 158/64 H 01/12/19 12:48 Pulse Ox 91 L 01/12/19 12:48 Weight - Most Recent: 106 lb 9.002 oz I&O - Last 24 Hours: Intake & Output 01/12/19 01/12/19 01/12/19 06:59 14:59 22:59 Intake Total 100 250 Output Total 600 Balance 100 -350 Lab Results Last 24 Hours: Laboratory Results - last 24 hr 01/10/19 01/11/19 01/12/19 Range/Units 22:30 17:14 05:00 WBC 20.2 H (4.5-11.0) K/uL RBC 3.88 (3.30-5.50) M/uL Hgb 9.1 L 10.3 L (12.0-15.0) g/dL Hct 32.1 L (36.0-48.0) % MCV 83 (80-98) fL MCH 27 (27-31) pg MCHC 32 (32-36) % Plt Count 710 H (150-400) K/uL Neut % (Auto) 84 H (36-66) % Lymph % (Auto) 9 L (24-44) % [place] % (Auto) 8 H (2-6) % Eos % (Auto) 0 L (2-4) % Baso % (Auto) 0 (0-1) % Puncture Site ABG pH (7.350-7.450) ABG pCO2 (35.0-42.0) mmHg ABG pO2 (75.0-100.0) mmHg ABG HCO3 (22.0-26.0) mmol/L ABG Total CO2 (21.0-25.0) mmol/L ABG O2 Saturation (95.0-98.0) % ABG O2 Content (15.0-23.0) %vol ABG Base Excess mm/L ABG Hemoglobin (12.0-16.0) g/dL ABG Oxyhemoglobin % ABG Carboxyhemoglobin (0.0-1.6) % ABG Methemoglobin % Dawood Test O2 Delivery Device Oxygen Flow Rate L Sodium (140-148) mmol/L Potassium (3.6-5.2) mmol/L Chloride (100-108) mmol/L Carbon Dioxide (21-32) mmol/L Anion Gap (5.0-14.0) mmol/L BUN (7-18) mg/dL Creatinine (0.6-1.0) mg/dL Est Cr Clr Drug Dosing mL/min Estimated GFR (MDRD) (>60) Glucose (74-106) mg/dL Calcium (8.5-10.1) mg/dL Troponin I (0.000-0.056) ng/mL Crossmatch See Detail 01/12/19 01/12/19 01/12/19 Range/Units 06:00 12:42 12:45 WBC (4.5-11.0) K/uL RBC (3.30-5.50) M/uL Hgb (12.0-15.0) g/dL Hct (36.0-48.0) % MCV (80-98) fL MCH (27-31) pg MCHC (32-36) % Plt Count (150-400) K/uL Neut % (Auto) (36-66) % Lymph % (Auto) (24-44) % [place] % (Auto) (2-6) % Eos % (Auto) (2-4) % Baso % (Auto) (0-1) % Puncture Site Rt radial ABG pH 7.448 (7.350-7.450) ABG pCO2 30.1 L (35.0-42.0) mmHg ABG pO2 52.0 L (75.0-100.0) mmHg ABG HCO3 20.5 L (22.0-26.0) mmol/L ABG Total CO2 18.9 L (21.0-25.0) mmol/L ABG O2 Saturation 89.6 L (95.0-98.0) % ABG O2 Content 12.3 L (15.0-23.0) %vol ABG Base Excess -2.4 mm/L ABG Hemoglobin 9.9 L (12.0-16.0) g/dL ABG Oxyhemoglobin 88.3 % ABG Carboxyhemoglobin 0.9 (0.0-1.6) % ABG Methemoglobin 0.6 % Dawood Test Pass O2 Delivery Device Simple mask Oxygen Flow Rate 9 L Sodium 136 L (140-148) mmol/L Potassium 3.8 (3.6-5.2) mmol/L Chloride 101 (100-108) mmol/L Carbon Dioxide 21 (21-32) mmol/L Anion Gap 17.8 H (5.0-14.0) mmol/L BUN 15 (7-18) mg/dL Creatinine 1.0 (0.6-1.0) mg/dL Est Cr Clr Drug Dosing 37.06 mL/min Estimated GFR (MDRD) 55 L (>60) Glucose 117 H (74-106) mg/dL Calcium 7.9 L (8.5-10.1) mg/dL Troponin I < 0.017 (0.000-0.056) ng/mL Crossmatch 01/12/19 01/12/19 01/12/19 Range/Units 14:30 14:34 14:34 WBC 19.3 H (4.5-11.0) K/uL RBC 3.37 (3.30-5.50) M/uL Hgb 9.0 L (12.0-15.0) g/dL Hct 27.8 L (36.0-48.0) % MCV 83 (80-98) fL MCH 27 (27-31) pg MCHC 32 (32-36) % Plt Count 679 H (150-400) K/uL Neut % (Auto) 92 H (36-66) % Lymph % (Auto) 4 L (24-44) % [place] % (Auto) 4 (2-6) % Eos % (Auto) 0 L (2-4) % Baso % (Auto) 0 (0-1) % Puncture Site Line ABG pH 7.370 (7.350-7.450) ABG pCO2 36.5 (35.0-42.0) mmHg ABG pO2 224.0 H (75.0-100.0) mmHg ABG HCO3 20.6 L (22.0-26.0) mmol/L ABG Total CO2 19.4 L (21.0-25.0) mmol/L ABG O2 Saturation 99.4 H (95.0-98.0) % ABG O2 Content 13.3 L (15.0-23.0) %vol ABG Base Excess -3.7 mm/L ABG Hemoglobin 9.3 L (12.0-16.0) g/dL ABG Oxyhemoglobin 98.1 % ABG Carboxyhemoglobin 0.6 (0.0-1.6) % ABG Methemoglobin 0.7 % Dawood Test TNP O2 Delivery Device Nasal cannula Oxygen Flow Rate L Sodium 135 L (140-148) mmol/L Potassium 3.1 L (3.6-5.2) mmol/L Chloride 100 (100-108) mmol/L Carbon Dioxide 21 (21-32) mmol/L Anion Gap 17.1 H (5.0-14.0) mmol/L BUN 16 (7-18) mg/dL Creatinine 0.9 (0.6-1.0) mg/dL Est Cr Clr Drug Dosing 41.18 mL/min Estimated GFR (MDRD) > 60 (>60) Glucose 146 H (74-106) mg/dL Calcium 7.5 L (8.5-10.1) mg/dL Troponin I (0.000-0.056) ng/mL Crossmatch Med Orders - Current: Current Medications Acetaminophen (Tylenol) 650 mg PO Q4H PRN PRN Reason: Pain (Mild 1-3)/fever Last Admin: 01/11/19 20:20 Dose: 650 mg Albuterol (Proventil Neb Soln) 2.5 mg NEB Q4H PRN PRN Reason: Shortness Of Breath/wheezing Clonazepam (Klonopin) 1 mg PO BEDTIME [facility] Last Admin: 01/11/19 20:20 Dose: 1 mg Docusate Sodium (Colace) 100 mg PO BID PRN PRN Reason: Constipation Enoxaparin Sodium (Lovenox) 40 mg SUBCUT Q24H [facility] Fluoxetine HCl (Prozac) 80 mg PO DAILY [facility] Last Admin: 01/12/19 08:46 Dose: 80 mg Hydrochlorothiazide (Hydrochlorothiazide) 25 mg PO DAILY [facility] Last Admin: 01/12/19 08:45 Dose: 25 mg Hyoscyamine (Hyomax-Sl) 0.125 mg SL TID PRN PRN Reason: Nausea Piperacillin/Tazobactam/ (Dextrose 3.375 gm/ Premix) 50 mls @ 100 mls/hr IV Q6H [facility] Last Admin: 01/12/19 14:54 Dose: 100 mls/hr Vancomycin HCl 1 gm/ Sodium (Chloride) 250 mls @ 167 mls/hr IV Q24H [facility] Last Admin: 01/12/19 14:05 Dose: 167 mls/hr Heparin Sodium (Porcine) 5,000 (units/ Sodium Chloride) 501 mls @ 0 mls/hr IV ASDIRECTED [facility] Propofol (Diprivan 100 Ml) 100 mls @ 1.45 mls/hr IV TITRATE [facility]; Protocol Last Titration: 01/12/19 14:13 Dose: 155.16 mcg/kg/min, 45 mls/hr Potassium Chloride 40 meq/ (Premix) 100 mls @ 25 mls/hr IV ONETIME ONE Stop: 01/12/19 19:29 Lamotrigine (Lamotrigine) 100 mg PO BID [facility] Last Admin: 01/12/19 08:44 Dose: 100 mg Lamotrigine (Lamotrigine) 75 mg PO BID [facility] Last Admin: 01/12/19 08:45 Dose: 75 mg Lorazepam (Ativan) 1 mg IV Q4H PRN PRN Reason: Anxiety Last Admin: 01/11/19 14:54 Dose: 1 mg Metoprolol Tartrate (Lopressor) 25 mg PO BID [facility] Last Admin: 01/12/19 08:45 Dose: 25 mg Ondansetron HCl (Zofran Odt) 4 mg PO Q6H PRN PRN Reason: Nausea able to take PO Ondansetron HCl (Zofran) 4 mg IV Q4H PRN PRN Reason: Nausea/Vomiting Oxycodone HCl (Oxycodone) 5 mg PO Q4H PRN PRN Reason: Pain Last Admin: 01/11/19 20:20 Dose: 5 mg Pantoprazole Sodium (Protonix Iv) 40 mg IVPUSH Q24H [facility] Last Admin: 01/12/19 14:53 Dose: 40 mg Verapamil HCl (Calan Sr) 240 mg PO DAILY [facility] Last Admin: 01/12/19 08:44 Dose: 240 mg Discontinued Medications Fluoxetine HCl (Prozac) 80 mg PO DAILY [facility] Last Admin: 01/11/19 11:00 Dose: 80 mg Furosemide (Lasix) 20 mg IVPUSH ONETIME ONE Stop: 01/12/19 12:31 Last Admin: 01/12/19 12:32 Dose: 20 mg Furosemide (Lasix) Confirm Administered Dose 20 mg .ROUTE .STK-MED ONE Stop: 01/12/19 12:30 Last Admin: 01/12/19 12:33 Dose: Not Given Furosemide (Lasix) 40 mg IVPUSH NOW ONE Stop: 01/12/19 15:37 Hydromorphone HCl (Dilaudid) 0.5 mg IVPUSH ONETIME ONE Stop: 01/12/19 12:01 Last Admin: 01/12/19 12:00 Dose: 0.5 mg Sodium Chloride (Normal Saline) 1,000 mls @ 1,000 mls/hr IV ASDIRECTED [facility] Last Admin: 01/11/19 06:17 Dose: 1,000 mls/hr Sodium Chloride (Normal Saline) 1,000 mls @ 125 mls/hr IV ONETIME ONE Stop: 01/11/19 05:43 Last Admin: 01/10/19 21:45 Dose: 125 mls/hr Potassium Chloride 20 meq/Lidocaine HCl 2 ml/ Sodium Chloride 112 mls @ 50 mls/ hr IV Q2H [facility] Stop: 01/11/19 13:59 Last Admin: 01/11/19 17:25 Dose: 50 mls/hr Influenza Virus Vaccine (Pharmacy To Dose - Influenza Vaccine) 1 each IM ONETIME ONE Stop: 01/12/19 11:01 Influenza Virus Vaccine (Fluzone High-Dose Syringe) 180 mcg IM .ONCE ONE Stop: 01/12/19 09:01 Last Admin: 01/12/19 08:47 Dose: Not Given Lorazepam (Ativan) 0.5 mg IVPUSH ONETIME ONE Stop: 01/10/19 20:20 Last Admin: 01/10/19 20:45 Dose: 0.5 mg Lorazepam (Ativan) 0.5 mg IVPUSH ONETIME ONE Stop: 01/12/19 13:37 Last Admin: 01/12/19 13:40 Dose: 0.5 mg Naloxone HCl (Narcan) Confirm Administered Dose 0.4 mg .ROUTE .STK-MED ONE Stop: 01/12/19 12:17 Last Admin: 01/12/19 12:24 Dose: 0.1 mg Naloxone HCl (Narcan) 0.1 mg IVPUSH ASDIRECTED PRN PRN Reason: Sedation Non-Formulary Medication (Lamotrigine [Lamictal]) 175 mg PO BID [facility] Last Admin: 01/11/19 01:26 Dose: Not Given Pantoprazole Sodium (Protonix Iv) 40 mg IV BID [facility] Last Admin: 01/11/19 11:01 Dose: 40 mg Pantoprazole Sodium (Protonix) 40 mg PO DAILY@0730 [facility] Last Admin: 01/12/19 08:45 Dose: 40 mg Propofol (Diprivan 20 Ml) Confirm Administered Dose 200 mg .ROUTE .STK-MED ONE Stop: 01/11/19 09:35 Propofol (Diprivan 20 Ml) 200 mg .ROUTE .STK-MED ONE Stop: 01/12/19 14:01 Vancomycin HCl (Vancomycin) 1 gm IV .PHARMACY TO DOSE [facility] Stop: 01/12/19 14:01 - Exam Quality Assessment: Supplemental Oxygen (Mechanical ventilation), Urine Catheter , DVT Prophylaxis Lungs: Decreased Breath Sounds, Rales, Rhonchi. No: Rub, Stridor Cardiovascular: Regular Rate, Regular Rhythm, Murmurs GI/Abdominal Exam: Soft, No Organomegaly, Tender. No: Distended, Guarding, Rigid, Rebound Extremities: Non-Tender, No Pedal Edema - Problem List Review Problem List Initiated/Reviewed/Updated: Yes - My Orders Last 24 Hours: My Active Orders 01/11/19 14:52 oxyCODONE 5 mg PO Q4H PRN 01/12/19 CULTURE BLOOD [BC] Stat 01/12/19 11:51 Discontinue Telemetry Monitoring [Cardiac Monitoring Discontinue] [RC] Click to Edit 01/12/19 13:06 Blood Culture x2 Reflex Set [OM.PC] Urgent 01/12/19 13:28 Patient Status [ADT] Routine CULTURE BLOOD [BC] Stat 01/12/19 13:33 RT Ventilator, Adult [RC] ASDIRECTED Restraint Initiate Non-VIOL/Non-SD [OM.PC] Stat 01/12/19 13:34 RASS Sedation Scale [RC] ASDIRECTED Desired Level of Sedation (RASS) [AST] Click to Edit 01/12/19 13:45 Heparin Sodium 5,000 units Sodium Chloride 0.9% [Normal Saline] 500 ml IV ASDIRECTED Propofol [Diprivan 100 ML] 100 ml IV TITRATE Restraint Monitoring Non-VIOL/Non-SD [OM.PC] Daily 01/12/19 14:00 Piperacillin/Tazobactam/Dext [Zosyn in Dextrose Iso-Osmotic 3.375 GM] 3.375 gm Premix Bag 1 bag IV Q6H 01/12/19 14:30 Vancomycin 1 gm Sodium Chloride 0.9% [Normal Saline] 250 ml IV Q24H 01/12/19 14:56 Potassium Chloride Riders [KCL 40 MEQ in Water 100 ML] 40 meq Premix Bag 1 bag IV ONETIME 01/12/19 15:37 EKG Documentation Completion [RC] ASDIRECTED EKG 12 Lead [EK] Stat 01/12/19 16:00 Enoxaparin [Lovenox] 40 mg SUBCUT Q24H Pantoprazole [ProTONIX IV] 40 mg IVPUSH Q24H 03/10/19 13:45 Restraint Monitoring Non-VIOL/Non-SD [OM.PC] Daily - Plan Plan:: ASSESSMENT / PLAN Anemia-stable following transfusion of one unit of red blood cells, no evidence of active bleeding. EGD showed mild gastritis, patient has refused colonoscopy. -Saline lock IV -Protonix 40 mg IV daily -Serial hemoglobin levels Bilateral pulmonary infiltrates-fluid versus infection, resulting in hypoxic respiratory failure. No significant improvement with initial dose of IV furosemide 20 mg. Worrisome for infection with new elevation in white blood cell count at 20,000. Troponin level is within normal range, EKG pending -Additional furosemide 40 mg IV now -Blood and sputum cultures pending -IV vancomycin and Zosyn Hypoxic respiratory failure-secondary to bilateral pulmonary infiltrates -Mechanical ventilation, attempt to decrease FiO2, increase PEEP to 10 Anxiety -continue home medications Hypertension -continue home medications Maintenance issues -Nutrition: Nothing by mouth -Fernando catheter; catheter placed to monitor urine output -DVT: Lovenox 40 mg subcutaneous daily -PPI; Protonix 40 mg IV daily CODE STATUS: FULL Admission status: Admit to [address] [place] [address]. This patient will be admitted for inpatient services and is medically appropriate meeting medical necessity for inpatient admission as outlined in my documentation. I reasonably expect the patient will require inpatient services that span. Time over 2 midnights. I reasonably expect this patient to be discharged or transferred within 96 hours after admission to the critical access hospital. Disposition: Transfer to tertiary care center or subspecialty evaluation and management Primary care provider: Dr. Goddard, [place], [place]. Hospitalist: Dr. Austin
--- NOTE | 2019-01-12 16:16 | PCM.DCSUM1 ---
Discharge Summary - Hospital Course Brief History: Ms. Dimas is a 73-year-old woman who was admitted through the emergency department with dehydration and weakness secondary to nausea and vomiting of 24 hours duration. On evaluation in emergency department was also found to have new significant anemia with a hemoglobin of 8.0 - Discharge Data Discharge Date: 01/12/19 Discharge Disposition: Home, Self-Care 01 Condition: Stable - Discharge Diagnosis/Problem(s) (1) Pneumonia SNOMED Code(s): 788938418 ICD Code: J18.9 - PNEUMONIA, UNSPECIFIED ORGANISM Status: Acute Current Visit: Yes (2) Acute respiratory failure with hypoxia SNOMED Code(s): 87642424, 629434759 ICD Code: J96.01 - ACUTE RESPIRATORY FAILURE WITH HYPOXIA Status: Acute Current Visit: Yes (3) Anemia SNOMED Code(s): 681311417 ICD Code: D64.9 - ANEMIA, UNSPECIFIED Status: Acute Priority: High Current Visit: Yes Qualifiers: Anemia type: unspecified type Qualified Code(s): D64.9 - Anemia, unspecified (4) Anxiety SNOMED Code(s): 88932633 ICD Code: F41.9 - ANXIETY DISORDER, UNSPECIFIED Status: Acute Priority: High Current Visit: Yes - Patient Summary/Data Consults: Consultations 01/10/19 23:23 Consult to Physician [CONS] Routine Consulting Provider: Mj Espinoza Call Completed to Consulting Physician: Yes: EGD in am Reason for Consult: EGD in am Person Notified: Dr. Espinoza Date Notified: 01/10/19 Time Notified: 22:14 01/11/19 11:26 Consult to Physical Therapy [PT Evaluation and Treatment] [CONS] Routine Please Evaluate and Treat. PT Reason for Consult: Weakness This query below is only for informational purposes and is not editable. Admission Diagnosis/Problem: Anemia Hospital Course: Corina Dimas is a 73 year old female who presents to the ED with concerns of nausea and vomiting, which started 1 day ago. She was accompanied by her . She states she has had chronic diarrhea for about 2 years. She states that she feels her vision has not be normal as she cannot focus on objects. She notes the room appears to be spinning. Her states her shakiness occurred a couple of days ago. Her states that she did fall 1 day ago but did not hit her head or lose consciousness. She states she does have epigastric discomfort. She denies abdominal pain, fever, chills, and changes in urination. She does have a past history of seizures. On evaluation in the emergency department was found to have a new anemia with hemoglobin of 8, most recent hemoglobin in November was 11. She was admitted to the hospital and given IV fluids for hydration. In addition this was placed on Protonix orally milligrams IV every 12 hours. Following morning her hemoglobin was 7.5 following hydration and she was transfused one unit of red blood cells. EGD was performed by Dr. Espinoza and showed only mild gastritis, with no obvious source of recent blood loss. Discussed these findings with the patient and her and recommended colonoscopy for further evaluation which she refused. Plan was for follow-up hemoglobin levels and probable discharge to home is morning. Her hemoglobin level did remain stable through the night, with no evidence of active bleeding. On the morning of transfer she was noted to have evidence of respiratory compromise with decrease oxygenation and saturations 80-90 range. She was given furosemide 20 mg IV had no significant improvement in her symptoms. Her white blood cell count had been normal on admission as well as the morning prior to transfer. On the morning of transfer she was found to have elevation in her white blood cell count of 20,000. Chest x-ray was obtained which showed evidence of bilateral pulmonary infiltrates, fluid versus infection. Arterial blood gases showed evidence of hypoxia with a PO2 of 54 and a PCO2 of 28. Respiratory rate increased into the 30s and she was intolerant of a simple mask, so she was not felt to be a good candidate for noninvasive positive pressure ventilation. She was intubated and placed on mechanical ventilation because of hypoxic respiratory failure. Sputum culture as well as blood cultures were obtained and she was started on IV antibiotic therapy with vancomycin and Zosyn. After intubation oxygenation was adequate and she was placed on IV propofol for sedation because of her severe anxiety. Troponin level was within normal range at less than 0.017. Review of past medical records show an echocardiogram was obtained in November 2018, this showed normal left ventricular function with estimated ejection fraction of 60-65%. There was moderate aortic stenosis and aortic insufficiency. She will be transferred to [facility] in [facility] for further subspecialty evaluation and management. - Patient Instructions Diet: NPO Activity: Bedrest Other/Special Instructions: Patient will be transferred to [place], [place] via [facility] ambulance - Discharge Plan *PRESCRIPTION DRUG MONITORING PROGRAM REVIEWED*: Not Applicable *COPY OF PRESCRIPTION DRUG MONITORING REPORT IN PATIENT CLYDE: Not Applicable Home Medications: Home Meds ClonazePAM [KlonoPIN] 1 mg PO BEDTIME 11/27/13 [History] FLUoxetine [PROzac] 80 mg PO DAILY 11/27/13 [History] Metoprolol Tartrate [Lopressor] 25 mg PO Q12HR 11/27/13 [History] Pantoprazole Sodium [Protonix] 40 mg PO DAILY 11/27/13 [History] Verapamil [Verelan] 240 mg PO DAILY 11/27/13 [History] lamoTRIgine [LaMICtal] 175 mg PO BID 11/27/13 [History] Hydrochlorothiazide 25 mg PO DAILY 02/18/16 [History] Famotidine 20 mg PO DAILY 01/10/19 [History] Hyoscyamine [Levsin] 0.125 mg SL TID PRN 01/10/19 [History] Enoxaparin [Lovenox] 40 mg SUBCUT Q24H syringe 01/12/19 [Rx] Piperacillin/Tazobactam/Dext [Zosyn in Dextrose Iso-Osmotic 3.375 GM] 3.375 gm IV Q6H bag 01/12/19 [Rx] Propofol [Diprivan 100 ML] See Protocol IV TITRATE vial 01/12/19 [Rx] Vancomycin 1 gm IV Q24H sdv 01/12/19 [Rx] Referrals: Leonid Goddard MD [Physician] - - Discharge Summary/Plan Comment DC Time >30 min.: No - Patient Data Vitals - Most Recent: Last Vital Signs Temp 100.9 F H 01/12/19 12:48 Pulse 92 01/12/19 12:48 Resp 24 H 01/12/19 12:48 BP 158/64 H 01/12/19 12:48 Pulse Ox 91 L 01/12/19 12:48 Weight - Most Recent: 106 lb 9.002 oz I&O - Last 24 hours: Intake & Output 01/12/19 01/12/19 01/12/19 06:59 14:59 22:59 Intake Total 100 250 Output Total 600 Balance 100 -350 Lab Results - Last 24 hrs: Laboratory Results - last 24 hr 01/10/19 01/11/19 01/12/19 Range/Units 22:30 17:14 05:00 WBC 20.2 H (4.5-11.0) K/uL RBC 3.88 (3.30-5.50) M/uL Hgb 9.1 L 10.3 L (12.0-15.0) g/dL Hct 32.1 L (36.0-48.0) % MCV 83 (80-98) fL MCH 27 (27-31) pg MCHC 32 (32-36) % Plt Count 710 H (150-400) K/uL Neut % (Auto) 84 H (36-66) % Lymph % (Auto) 9 L (24-44) % Sheridan % (Auto) 8 H (2-6) % Eos % (Auto) 0 L (2-4) % Baso % (Auto) 0 (0-1) % Puncture Site ABG pH (7.350-7.450) ABG pCO2 (35.0-42.0) mmHg ABG pO2 (75.0-100.0) mmHg ABG HCO3 (22.0-26.0) mmol/L ABG Total CO2 (21.0-25.0) mmol/L ABG O2 Saturation (95.0-98.0) % ABG O2 Content (15.0-23.0) %vol ABG Base Excess mm/L ABG Hemoglobin (12.0-16.0) g/dL ABG Oxyhemoglobin % ABG Carboxyhemoglobin (0.0-1.6) % ABG Methemoglobin % Dawood Test O2 Delivery Device Oxygen Flow Rate L Sodium (140-148) mmol/L Potassium (3.6-5.2) mmol/L Chloride (100-108) mmol/L Carbon Dioxide (21-32) mmol/L Anion Gap (5.0-14.0) mmol/L BUN (7-18) mg/dL Creatinine (0.6-1.0) mg/dL Est Cr Clr Drug Dosing mL/min Estimated GFR (MDRD) (>60) Glucose (74-106) mg/dL Calcium (8.5-10.1) mg/dL Troponin I (0.000-0.056) ng/mL Crossmatch See Detail 01/12/19 01/12/19 01/12/19 Range/Units 06:00 12:42 12:45 WBC (4.5-11.0) K/uL RBC (3.30-5.50) M/uL Hgb (12.0-15.0) g/dL Hct (36.0-48.0) % MCV (80-98) fL MCH (27-31) pg MCHC (32-36) % Plt Count (150-400) K/uL Neut % (Auto) (36-66) % Lymph % (Auto) (24-44) % Sheridan % (Auto) (2-6) % Eos % (Auto) (2-4) % Baso % (Auto) (0-1) % Puncture Site Rt radial ABG pH 7.448 (7.350-7.450) ABG pCO2 30.1 L (35.0-42.0) mmHg ABG pO2 52.0 L (75.0-100.0) mmHg ABG HCO3 20.5 L (22.0-26.0) mmol/L ABG Total CO2 18.9 L (21.0-25.0) mmol/L ABG O2 Saturation 89.6 L (95.0-98.0) % ABG O2 Content 12.3 L (15.0-23.0) %vol ABG Base Excess -2.4 mm/L ABG Hemoglobin 9.9 L (12.0-16.0) g/dL ABG Oxyhemoglobin 88.3 % ABG Carboxyhemoglobin 0.9 (0.0-1.6) % ABG Methemoglobin 0.6 % Dawood Test Pass O2 Delivery Device Simple mask Oxygen Flow Rate 9 L Sodium 136 L (140-148) mmol/L Potassium 3.8 (3.6-5.2) mmol/L Chloride 101 (100-108) mmol/L Carbon Dioxide 21 (21-32) mmol/L Anion Gap 17.8 H (5.0-14.0) mmol/L BUN 15 (7-18) mg/dL Creatinine 1.0 (0.6-1.0) mg/dL Est Cr Clr Drug Dosing 37.06 mL/min Estimated GFR (MDRD) 55 L (>60) Glucose 117 H (74-106) mg/dL Calcium 7.9 L (8.5-10.1) mg/dL Troponin I < 0.017 (0.000-0.056) ng/mL Crossmatch 01/12/19 01/12/19 01/12/19 Range/Units 14:30 14:34 14:34 WBC 19.3 H (4.5-11.0) K/uL RBC 3.37 (3.30-5.50) M/uL Hgb 9.0 L (12.0-15.0) g/dL Hct 27.8 L (36.0-48.0) % MCV 83 (80-98) fL MCH 27 (27-31) pg MCHC 32 (32-36) % Plt Count 679 H (150-400) K/uL Neut % (Auto) 92 H (36-66) % Lymph % (Auto) 4 L (24-44) % Sheridan % (Auto) 4 (2-6) % Eos % (Auto) 0 L (2-4) % Baso % (Auto) 0 (0-1) % Puncture Site Line ABG pH 7.370 (7.350-7.450) ABG pCO2 36.5 (35.0-42.0) mmHg ABG pO2 224.0 H (75.0-100.0) mmHg ABG HCO3 20.6 L (22.0-26.0) mmol/L ABG Total CO2 19.4 L (21.0-25.0) mmol/L ABG O2 Saturation 99.4 H (95.0-98.0) % ABG O2 Content 13.3 L (15.0-23.0) %vol ABG Base Excess -3.7 mm/L ABG Hemoglobin 9.3 L (12.0-16.0) g/dL ABG Oxyhemoglobin 98.1 % ABG Carboxyhemoglobin 0.6 (0.0-1.6) % ABG Methemoglobin 0.7 % Dawood Test TNP O2 Delivery Device Nasal cannula Oxygen Flow Rate L Sodium 135 L (140-148) mmol/L Potassium 3.1 L (3.6-5.2) mmol/L Chloride 100 (100-108) mmol/L Carbon Dioxide 21 (21-32) mmol/L Anion Gap 17.1 H (5.0-14.0) mmol/L BUN 16 (7-18) mg/dL Creatinine 0.9 (0.6-1.0) mg/dL Est Cr Clr Drug Dosing 41.18 mL/min Estimated GFR (MDRD) > 60 (>60) Glucose 146 H (74-106) mg/dL Calcium 7.5 L (8.5-10.1) mg/dL Troponin I (0.000-0.056) ng/mL Crossmatch Med Orders - Current: Current Medications Acetaminophen (Tylenol) 650 mg PO Q4H PRN PRN Reason: Pain (Mild 1-3)/fever Last Admin: 01/11/19 20:20 Dose: 650 mg Albuterol (Proventil Neb Soln) 2.5 mg NEB Q4H PRN PRN Reason: Shortness Of Breath/wheezing Clonazepam (Klonopin) 1 mg PO BEDTIME [facility] Last Admin: 01/11/19 20:20 Dose: 1 mg Docusate Sodium (Colace) 100 mg PO BID PRN PRN Reason: Constipation Enoxaparin Sodium (Lovenox) 40 mg SUBCUT Q24H [facility] Last Admin: 01/12/19 15:54 Dose: 40 mg Fluoxetine HCl (Prozac) 80 mg PO DAILY [facility] Last Admin: 01/12/19 08:46 Dose: 80 mg Hydrochlorothiazide (Hydrochlorothiazide) 25 mg PO DAILY [facility] Last Admin: 01/12/19 08:45 Dose: 25 mg Hyoscyamine (Hyomax-Sl) 0.125 mg SL TID PRN PRN Reason: Nausea Piperacillin/Tazobactam/ (Dextrose 3.375 gm/ Premix) 50 mls @ 100 mls/hr IV Q6H [facility] Last Admin: 01/12/19 14:54 Dose: 100 mls/hr Vancomycin HCl 1 gm/ Sodium (Chloride) 250 mls @ 167 mls/hr IV Q24H [facility] Last Admin: 01/12/19 14:05 Dose: 167 mls/hr Heparin Sodium (Porcine) 5,000 (units/ Sodium Chloride) 501 mls @ 0 mls/hr IV ASDIRECTED [facility] Propofol (Diprivan 100 Ml) 100 mls @ 1.45 mls/hr IV TITRATE ELLYN; Protocol Last Titration: 01/12/19 15:30 Dose: 68.96 mcg/kg/min, 20 mls/hr Potassium Chloride 40 meq/ (Premix) 100 mls @ 25 mls/hr IV ONETIME ONE Stop: 01/12/19 19:29 Last Admin: 01/12/19 15:53 Dose: 25 mls/hr Lamotrigine (Lamotrigine) 100 mg PO BID [facility] Last Admin: 01/12/19 08:44 Dose: 100 mg Lamotrigine (Lamotrigine) 75 mg PO BID [facility] Last Admin: 01/12/19 08:45 Dose: 75 mg Lorazepam (Ativan) 1 mg IV Q4H PRN PRN Reason: Anxiety Last Admin: 01/11/19 14:54 Dose: 1 mg Metoprolol Tartrate (Lopressor) 25 mg PO BID [facility] Last Admin: 01/12/19 08:45 Dose: 25 mg Ondansetron HCl (Zofran Odt) 4 mg PO Q6H PRN PRN Reason: Nausea able to take PO Ondansetron HCl (Zofran) 4 mg IV Q4H PRN PRN Reason: Nausea/Vomiting Oxycodone HCl (Oxycodone) 5 mg PO Q4H PRN PRN Reason: Pain Last Admin: 01/11/19 20:20 Dose: 5 mg Pantoprazole Sodium (Protonix Iv) 40 mg IVPUSH Q24H [facility] Last Admin: 01/12/19 14:53 Dose: 40 mg Verapamil HCl (Calan Sr) 240 mg PO DAILY [facility] Last Admin: 01/12/19 08:44 Dose: 240 mg Discontinued Medications Fluoxetine HCl (Prozac) 80 mg PO DAILY [facility] Last Admin: 01/11/19 11:00 Dose: 80 mg Furosemide (Lasix) 20 mg IVPUSH ONETIME ONE Stop: 01/12/19 12:31 Last Admin: 01/12/19 12:32 Dose: 20 mg Furosemide (Lasix) Confirm Administered Dose 20 mg .ROUTE .STK-MED ONE Stop: 01/12/19 12:30 Last Admin: 01/12/19 12:33 Dose: Not Given Furosemide (Lasix) 40 mg IVPUSH NOW ONE Stop: 01/12/19 15:37 Hydromorphone HCl (Dilaudid) 0.5 mg IVPUSH ONETIME ONE Stop: 01/12/19 12:01 Last Admin: 01/12/19 12:00 Dose: 0.5 mg Sodium Chloride (Normal Saline) 1,000 mls @ 1,000 mls/hr IV ASDIRECTED [facility] Last Admin: 01/11/19 06:17 Dose: 1,000 mls/hr Sodium Chloride (Normal Saline) 1,000 mls @ 125 mls/hr IV ONETIME ONE Stop: 01/11/19 05:43 Last Admin: 01/10/19 21:45 Dose: 125 mls/hr Potassium Chloride 20 meq/Lidocaine HCl 2 ml/ Sodium Chloride 112 mls @ 50 mls/ hr IV Q2H ELLYN Stop: 01/11/19 13:59 Last Admin: 01/11/19 17:25 Dose: 50 mls/hr Influenza Virus Vaccine (Pharmacy To Dose - Influenza Vaccine) 1 each IM ONETIME ONE Stop: 01/12/19 11:01 Influenza Virus Vaccine (Fluzone High-Dose Syringe) 180 mcg IM .ONCE ONE Stop: 01/12/19 09:01 Last Admin: 01/12/19 08:47 Dose: Not Given Lorazepam (Ativan) 0.5 mg IVPUSH ONETIME ONE Stop: 01/10/19 20:20 Last Admin: 01/10/19 20:45 Dose: 0.5 mg Lorazepam (Ativan) 0.5 mg IVPUSH ONETIME ONE Stop: 01/12/19 13:37 Last Admin: 01/12/19 13:40 Dose: 0.5 mg Naloxone HCl (Narcan) Confirm Administered Dose 0.4 mg .ROUTE .STK-MED ONE Stop: 01/12/19 12:17 Last Admin: 01/12/19 12:24 Dose: 0.1 mg Naloxone HCl (Narcan) 0.1 mg IVPUSH ASDIRECTED PRN PRN Reason: Sedation Non-Formulary Medication (Lamotrigine [Lamictal]) 175 mg PO BID [facility] Last Admin: 01/11/19 01:26 Dose: Not Given Pantoprazole Sodium (Protonix Iv) 40 mg IV BID [facility] Last Admin: 01/11/19 11:01 Dose: 40 mg Pantoprazole Sodium (Protonix) 40 mg PO DAILY@0730 [facility] Last Admin: 01/12/19 08:45 Dose: 40 mg Propofol (Diprivan 20 Ml) Confirm Administered Dose 200 mg .ROUTE .STK-MED ONE Stop: 01/11/19 09:35 Propofol (Diprivan 20 Ml) 200 mg .ROUTE .STK-MED ONE Stop: 01/12/19 14:01 Vancomycin HCl (Vancomycin) 1 gm IV .PHARMACY TO DOSE ELLYN Stop: 01/12/19 14:01 - Exam Quality Assessment: Reports: Supplemental Oxygen (Mechanical ventilation), Central Line/PICC (Arterial line), Urine Catheter, DVT Prophylaxis General: Reports: Sedated, Lethargic Lungs: Reports: Rales, Rhonchi. Denies: Rub, Stridor, Wheezing Cardiovascular: Reports: Regular Rate, Regular Rhythm, Murmurs GI/Abdominal Exam: Soft, Non-Tender, No Organomegaly, No Distention Skin: Reports: Warm, Dry, Intact
[2019-01-12] MEDS: LORazepam 2 MG/ML SDV IV PRN ×2 (20:07→22:56)
[2019-01-12] MEDS: ClonazePAM 1 MG Tab PO SCH (21:07)
--- NOTE | 2019-01-12 23:22 | ANES ---
DATE OF SERVICE: 01/12/2019 INDICATION: A 73-year-old lady in the intensive care unit with respiratory distress. I was asked by Dr. Austin to place an oral endotracheal tube, arterial line, and the staff wanted me to started another IV. There was a consent signed. She was quite restless and combative. TECHNIQUE: She was given 100 mg of propofol intravenously. Then, under direct vision, her vocal cords were easily seen. There was cricoid pressure held. #7.5 oral endotracheal tube was passed with ease and taped in place. A chest x-ray confirmed correct placement. Attention was then turned to the IV that the nurses wanted. A #18 was started in her right forearm and taped in place. Attention was then turned to the arterial line. The left radial artery was palpated, seemed to be easily accessible. Thumb was taped, roll underneath her wrist, alcohol prep and an Arrow arterial catheter was easily passed into the artery. It was hooked up to the tubing. A mistake I made here was that the tubing was not totally free on the IV stand. The catheter was sutured in and as I went to tape it, she got light on the sedation that they had been giving her, and she jerked her arm away and pulled the whole works out. I held then direct pressure on the artery for 5 minutes. There was no bleeding and no hematoma forming. Again, the artery was easily palpable. The wrist was restrained again and an Arrow arterial catheter was easily passed into the artery. It was sewn in place with a 2-0 Prolene and then taped in place after that and it was functioning well. Overall, she tolerated the procedure well. Fernie Myles CRNA /[id number]
[2019-01-13] MEDS: Piperacillin/Tazobactam/Dext 3.375 GM in Premix Bag 1 BAG IV SCH ×4 (01:44→20:15)
[2019-01-13] MEDS: LORazepam 2 MG/ML SDV IV PRN ×2 (03:08→09:54)
--- NOTE | 2019-01-13 04:45 | CRLCR ---
INDICATION: HYPOXIC RESPIRATORY FAILURE,INTUBATION, PRIOR DONE 01-12-10 INDICATION: Respiratory failure, intubation TECHNIQUE: Chest 1 view. COMPARISON: 01/12/2019 FINDINGS: Cardiovascular and mediastinum: Heart size and vasculature are normal in caliber and appearance. Mediastinum is within normal limits. Lungs and pleural space: ETT in place the tip 3.0 centimeters from the dolores. Stable right upper lobe airspace opacity. No sign of pleural effusion. No pneumothorax. Bones and soft tissues: No significant findings. IMPRESSION: ETT in place the tip 3.0 centimeters from the dolores. Stable right upper lobe infiltrate. Dictated by Donavon Flores MD @ 01/13/2019 4:43:42 AM Dictated by: Donavon Flores MD @ 01/13/2019 04:43:49 (Electronically Signed)
[2019-01-13] MEDS ORDERED: Potassium Chloride Riders 40 MEQ in Premix Bag 1 BAG IV ONE (09:00)
[2019-01-13] MEDS: Magnesium Sulfate/Water 2 GM in Premix Bag 1 BAG IV SCH ×2 (09:10→14:55)
[2019-01-13] MEDS ORDERED: Furosemide 40 MG/4 ML VIAL IVPUSH ONE (09:51)
[2019-01-13] MEDS: Verapamil 120 MG Tab.ER PO SCH (10:05)
[2019-01-13] MEDS: Hydrochlorothiazide 25 MG Tab PO SCH (10:05)
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
[2019-01-13] MEDS: Metoprolol Tartrate 25 MG Tab PO SCH ×2 (10:51→20:01)
[2019-01-13] MEDS: FLUoxetine Solution 20 MG/5 ML ML 120 ML Bottle PO SCH (10:52)
[2019-01-13] MEDS: lamoTRIgine 25 MG Tab SCH ×3 (11:39→20:15)
[2019-01-13] MEDS: lamoTRIgine 100 MG Tab SCH ×2 (11:46→20:16)
[2019-01-13] MEDS: Doxycycline 100 MG in Sodium Chloride 0.9% 100 ML IV SCH (14:50)
[2019-01-13] MEDS: Pantoprazole 40 MG Vial IVPUSH SCH (16:07)
[2019-01-13] MEDS: Enoxaparin 40 MG/0.4 ML Syringe SUBCUT SCH (16:07)
[2019-01-13] MEDS: lamoTRIgine 25 MG Tab PO SCH (17:10)
[2019-01-13] MEDS: lamoTRIgine 100 MG Tab PO SCH (17:10)
[2019-01-13] MEDS: ClonazePAM 1 MG Tab PO SCH (20:01)
[2019-01-14] MEDS: Piperacillin/Tazobactam/Dext 3.375 GM in Premix Bag 1 BAG IV SCH ×4 (02:23→20:14)
[2019-01-14] MEDS: Doxycycline 100 MG in Sodium Chloride 0.9% 100 ML IV SCH ×2 (02:56→14:12)
--- NOTE | 2019-01-14 03:32 | CRLCR ---
INDICATION: Pneumonia, intubation TECHNIQUE: Chest 1 view. COMPARISON: 01/13/2019 FINDINGS: Cardiovascular and mediastinum: Heart size and vasculature are normal in caliber and appearance. Mediastinum is within normal limits. Lungs and pleural space: ETT in place the tip 5.0 centimeters from the dolores. Improved aeration of the right upper lobe compared to prior study. No sign of pleural effusion. No pneumothorax. Bones and soft tissues: No significant findings. IMPRESSION: Improved aeration of the right upper lobe compared to prior study. Dictated by Donavon Flores MD @ 01/14/2019 3:31:59 AM Dictated by: Donavon Flores MD @ 01/14/2019 03:32:05 (Electronically Signed)
[2019-01-14] MEDS: Sodium Chloride 0.9% 1,000 ML IV SCH (05:16)
[2019-01-14] MEDS ORDERED: Sodium Chloride 0.9% 1,000 ML IV SCH (08:30)
--- NOTE | 2019-01-14 09:00 | PCM.PN ---
- General Info Date of Service: 01/14/19 Subjective Update: there were no acute events overnight. Vital signs have been stable. She is on minimal support from the ventilator. She has not had any fevers. she was intubated and sedated at the time of my evaluation this morning. We did try to lighten the sedation and she became very anxious and tachycardic even with moderate sedation still on board so she was recently dated. We will attempt weaning and hopefully extubation again later this morning. - Patient Data Vitals - Most Recent: Last Vital Signs Temp 35.2 C L 01/14/19 07:00 Pulse 96 01/14/19 08:00 Resp 18 01/14/19 08:00 BP 121/43 L 01/14/19 08:00 Pulse Ox 100 01/14/19 08:00 Weight - Most Recent: 48.336 kg I&O - Last 24 Hours: Intake & Output 01/13/19 01/14/19 01/14/19 22:59 06:59 14:59 Intake Total 50 908 Output Total 815 225 40 Balance -765 683 -40 Lab Results Last 24 Hours: Laboratory Results - last 24 hr 01/13/19 01/13/19 01/13/19 Range/Units 17:00 17:00 17:00 WBC (4.5-11.0) K/uL RBC (3.30-5.50) M/uL Hgb 8.4 L (12.0-15.0) g/dL Hct (36.0-48.0) % MCV (80-98) fL MCH (27-31) pg MCHC (32-36) % Plt Count (150-400) K/uL Neut % (Auto) (36-66) % Lymph % (Auto) (24-44) % Mora % (Auto) (2-6) % Eos % (Auto) (2-4) % Baso % (Auto) (0-1) % Puncture Site A-line ABG pH 7.392 (7.350-7.450) ABG pCO2 40.1 (35.0-42.0) mmHg ABG pO2 104.0 H (75.0-100.0) mmHg ABG HCO3 23.9 (22.0-26.0) mmol/L ABG Total CO2 22.6 (21.0-25.0) mmol/L ABG O2 Saturation 97.7 (95.0-98.0) % ABG O2 Content 12.1 L (15.0-23.0) %vol ABG Base Excess -0.4 mm/L ABG Hemoglobin 8.8 L (12.0-16.0) g/dL ABG Oxyhemoglobin 96.5 % ABG Carboxyhemoglobin 0.5 (0.0-1.6) % ABG Methemoglobin 0.7 % Dawood Test A-line O2 Delivery Device Ventilator Oxygen Flow Rate L Sodium 136 L (140-148) mmol/L Potassium 3.9 (3.6-5.2) mmol/L Chloride 100 (100-108) mmol/L Carbon Dioxide 24 (21-32) mmol/L Anion Gap 15.9 H (5.0-14.0) mmol/L BUN 18 (7-18) mg/dL Creatinine 0.9 (0.6-1.0) mg/dL Est Cr Clr Drug Dosing 41.18 mL/min Estimated GFR (MDRD) > 60 (>60) Glucose 103 (74-106) mg/dL Calcium 7.4 L (8.5-10.1) mg/dL Magnesium (1.8-2.4) mg/dL Total Bilirubin (0.2-1.0) mg/dL AST (15-37) U/L ALT (12-78) U/L Alkaline Phosphatase (46-116) U/L Total Protein (6.4-8.2) g/dL Albumin (3.4-5.0) g/dL Globulin (2.3-3.5) g/dL Albumin/Globulin Ratio (1.2-2.2) 01/14/19 01/14/19 01/14/19 Range/Units 05:15 05:15 05:15 WBC 12.0 H (4.5-11.0) K/uL RBC 2.95 L (3.30-5.50) M/uL Hgb 7.8 L (12.0-15.0) g/dL Hct 24.8 L (36.0-48.0) % MCV 84 (80-98) fL MCH 26 L (27-31) pg MCHC 32 (32-36) % Plt Count 656 H (150-400) K/uL Neut % (Auto) 81 H (36-66) % Lymph % (Auto) 11 L (24-44) % Mora % (Auto) 6 (2-6) % Eos % (Auto) 1 L (2-4) % Baso % (Auto) 0 (0-1) % Puncture Site A-line ABG pH 7.442 (7.350-7.450) ABG pCO2 32.8 L (35.0-42.0) mmHg ABG pO2 148.0 H (75.0-100.0) mmHg ABG HCO3 22.1 (22.0-26.0) mmol/L ABG Total CO2 20.9 L (21.0-25.0) mmol/L ABG O2 Saturation 99.2 H (95.0-98.0) % ABG O2 Content 11.2 L (15.0-23.0) %vol ABG Base Excess -1.2 mm/L ABG Hemoglobin 8.1 L (12.0-16.0) g/dL ABG Oxyhemoglobin 96.1 % ABG Carboxyhemoglobin 2.1 H (0.0-1.6) % ABG Methemoglobin 1.0 % Dawood Test A-line O2 Delivery Device Ventilator Oxygen Flow Rate L Sodium 138 L (140-148) mmol/L Potassium 3.3 L (3.6-5.2) mmol/L Chloride 102 (100-108) mmol/L Carbon Dioxide 23 (21-32) mmol/L Anion Gap 16.3 H (5.0-14.0) mmol/L BUN 19 H (7-18) mg/dL Creatinine 0.9 (0.6-1.0) mg/dL Est Cr Clr Drug Dosing 41.18 mL/min Estimated GFR (MDRD) > 60 (>60) Glucose 90 (74-106) mg/dL Calcium 7.3 L (8.5-10.1) mg/dL Magnesium 2.4 D (1.8-2.4) mg/dL Total Bilirubin 0.6 (0.2-1.0) mg/dL AST 24 (15-37) U/L ALT 13 (12-78) U/L Alkaline Phosphatase 272 H (46-116) U/L Total Protein 6.2 L (6.4-8.2) g/dL Albumin 1.8 L (3.4-5.0) g/dL Globulin 4.4 H (2.3-3.5) g/dL Albumin/Globulin Ratio 0.4 L (1.2-2.2) Cecilio Results Last 24 Hours: Microbiology 01/12/19 16:07 Gram Stain - Final Endotrachael Aspirate Respiratory Culture - Preliminary NORMAL RESPIRATORY MIKHAIL 1 DAY 01/12/19 13:28 Aerobic Blood Culture - Preliminary Blood - Arm, Right NO GROWTH AFTER 1 DAY Anaerobic Blood Culture - Preliminary NO GROWTH AFTER 1 DAY Med Orders - Current: Current Medications Acetaminophen (Tylenol) 650 mg PO Q4H PRN PRN Reason: Pain (Mild 1-3)/fever Last Admin: 01/11/19 20:20 Dose: 650 mg Albuterol (Proventil Neb Soln) 2.5 mg NEB Q4H PRN PRN Reason: Shortness Of Breath/wheezing Clonazepam (Klonopin) 1 mg PO BEDTIME [facility] Last Admin: 01/13/19 20:01 Dose: Not Given Docusate Sodium (Colace) 100 mg PO BID PRN PRN Reason: Constipation Enoxaparin Sodium (Lovenox) 40 mg SUBCUT Q24H [facility] Last Admin: 01/13/19 16:07 Dose: 40 mg Fluoxetine HCl (Prozac) 80 mg PO DAILY [facility] Last Admin: 01/13/19 10:52 Dose: Not Given Hydrochlorothiazide (Hydrochlorothiazide) 25 mg PO DAILY [facility] Last Admin: 01/13/19 10:05 Dose: Not Given Hyoscyamine (Hyomax-Sl) 0.125 mg SL TID PRN PRN Reason: Nausea Piperacillin/Tazobactam/ (Dextrose 3.375 gm/ Premix) 50 mls @ 100 mls/hr IV Q6H [facility] Last Admin: 01/14/19 07:51 Dose: 100 mls/hr Heparin Sodium (Porcine) 5,000 (units/ Sodium Chloride) 501 mls @ 0 mls/hr IV ASDIRECTED ELLYN Propofol (Diprivan 100 Ml) 100 mls @ 1.45 mls/hr IV TITRATE ELLYN; Protocol Last Titration: 01/14/19 08:54 Dose: 40 mcg/kg/min, 11.601 mls/hr Doxycycline Hyclate 100 mg/ (Sodium Chloride) 100 mls @ 100 mls/hr IV Q12H [facility] Last Admin: 01/14/19 02:56 Dose: 100 mls/hr Sodium Chloride (Normal Saline) 1,000 mls @ 0 mls/hr IV ASDIRECTED [facility] Last Admin: 01/14/19 05:16 Dose: 25 mls/hr Lamotrigine (Lamotrigine) 75 mg .XX BID [facility] Last Admin: 01/13/19 20:15 Dose: 75 mg Lamotrigine (Lamotrigine) 100 mg .XX BID [facility] Last Admin: 01/13/19 20:16 Dose: 100 mg Lorazepam (Ativan) 0.5 mg IV Q2H PRN PRN Reason: Anxiety Last Admin: 01/13/19 09:54 Dose: 0.5 mg Metoprolol Tartrate (Lopressor) 25 mg PO BID [facility] Last Admin: 01/13/19 20:01 Dose: Not Given Ondansetron HCl (Zofran Odt) 4 mg PO Q6H PRN PRN Reason: Nausea able to take PO Ondansetron HCl (Zofran) 4 mg IV Q4H PRN PRN Reason: Nausea/Vomiting Oxycodone HCl (Oxycodone) 5 mg PO Q4H PRN PRN Reason: Pain Last Admin: 01/11/19 20:20 Dose: 5 mg Pantoprazole Sodium (Protonix Iv) 40 mg IVPUSH Q24H [facility] Last Admin: 01/13/19 16:07 Dose: 40 mg Verapamil HCl (Calan Sr) 240 mg PO DAILY [facility] Last Admin: 01/13/19 10:05 Dose: Not Given Discontinued Medications Fluoxetine HCl (Prozac) 80 mg PO DAILY [facility] Last Admin: 01/11/19 11:00 Dose: 80 mg Furosemide (Lasix) 20 mg IVPUSH ONETIME ONE Stop: 01/12/19 12:31 Last Admin: 01/12/19 12:32 Dose: 20 mg Furosemide (Lasix) Confirm Administered Dose 20 mg .ROUTE .STK-MED ONE Stop: 01/12/19 12:30 Last Admin: 01/12/19 12:33 Dose: Not Given Furosemide (Lasix) 40 mg IVPUSH NOW ONE Stop: 01/12/19 15:37 Last Admin: 01/12/19 16:09 Dose: 40 mg Furosemide (Lasix) 40 mg IVPUSH NOW ONE Stop: 01/13/19 09:52 Last Admin: 01/13/19 11:30 Dose: 40 mg Hydromorphone HCl (Dilaudid) 0.5 mg IVPUSH ONETIME ONE Stop: 01/12/19 12:01 Last Admin: 01/12/19 12:00 Dose: 0.5 mg Sodium Chloride (Normal Saline) 1,000 mls @ 1,000 mls/hr IV ASDIRECTED [facility] Last Admin: 01/11/19 06:17 Dose: 1,000 mls/hr Sodium Chloride (Normal Saline) 1,000 mls @ 125 mls/hr IV ONETIME ONE Stop: 01/11/19 05:43 Last Admin: 01/10/19 21:45 Dose: 125 mls/hr Potassium Chloride 20 meq/Lidocaine HCl 2 ml/ Sodium Chloride 112 mls @ 50 mls/ hr IV Q2H [facility] Stop: 01/11/19 13:59 Last Admin: 01/11/19 17:25 Dose: 50 mls/hr Vancomycin HCl 1 gm/ Sodium (Chloride) 250 mls @ 167 mls/hr IV Q24H [facility] Last Admin: 01/12/19 14:05 Dose: 167 mls/hr Potassium Chloride 40 meq/ (Premix) 100 mls @ 25 mls/hr IV ONETIME ONE Stop: 01/12/19 19:29 Last Admin: 01/12/19 15:53 Dose: 25 mls/hr Magnesium Sulfate 2 gm/ Premix 50 mls @ 25 mls/hr IV Q6H [facility] Stop: 01/13/19 16:59 Last Admin: 01/13/19 14:55 Dose: 25 mls/hr Potassium Chloride 40 meq/ (Premix) 100 mls @ 25 mls/hr IV ONETIME ONE Stop: 01/13/19 12:59 Last Admin: 01/13/19 08:52 Dose: 25 mls/hr Sodium Chloride (Normal Saline) 1,000 mls @ 125 mls/hr IV ASDIRECTED [facility] Influenza Virus Vaccine (Pharmacy To Dose - Influenza Vaccine) 1 each IM ONETIME ONE Stop: 01/12/19 11:01 Influenza Virus Vaccine (Fluzone High-Dose Syringe) 180 mcg IM .ONCE ONE Stop: 01/12/19 09:01 Last Admin: 01/12/19 08:47 Dose: Not Given Lamotrigine (Lamotrigine) 100 mg PO BID [facility] Last Admin: 01/13/19 17:10 Dose: Not Given Lamotrigine (Lamotrigine) 75 mg PO BID [facility] Last Admin: 01/13/19 17:10 Dose: Not Given Lorazepam (Ativan) 0.5 mg IVPUSH ONETIME ONE Stop: 01/10/19 20:20 Last Admin: 01/10/19 20:45 Dose: 0.5 mg Lorazepam (Ativan) 1 mg IV Q4H PRN PRN Reason: Anxiety Last Admin: 01/12/19 20:07 Dose: 1 mg Lorazepam (Ativan) 0.5 mg IVPUSH ONETIME ONE Stop: 01/12/19 13:37 Last Admin: 01/12/19 13:40 Dose: 0.5 mg Naloxone HCl (Narcan) 0.1 mg IVPUSH ASDIRECTED PRN PRN Reason: Sedation Last Admin: 01/12/19 12:25 Dose: 0.1 mg Non-Formulary Medication (Lamotrigine [Lamictal]) 175 mg PO BID [facility] Last Admin: 01/11/19 01:26 Dose: Not Given Pantoprazole Sodium (Protonix Iv) 40 mg IV BID [facility] Last Admin: 01/11/19 11:01 Dose: 40 mg Pantoprazole Sodium (Protonix) 40 mg PO DAILY@0730 [facility] Last Admin: 01/12/19 08:45 Dose: 40 mg Propofol (Diprivan 20 Ml) Confirm Administered Dose 200 mg .ROUTE .STK-MED ONE Stop: 01/11/19 09:35 Propofol (Diprivan 20 Ml) 200 mg .ROUTE .STK-MED ONE Stop: 01/12/19 14:01 Vancomycin HCl (Vancomycin) 1 gm IV .PHARMACY TO DOSE [facility] Stop: 01/12/19 14:01 - Exam Quality Assessment: Supplemental Oxygen, Urine Catheter, Restraints General: No Acute Distress, Sedated. No: Alert Lungs: Clear to Auscultation, Normal Respiratory Effort Cardiovascular: Regular Rate, Regular Rhythm, Murmurs GI/Abdominal Exam: Normal Bowel Sounds, Soft, Non-Tender, No Distention Extremities: No Pedal Edema. No: Increased Warmth Peripheral Pulses: 2+: Dorsalis Pedis (L), Dorsalis Pedis (R) Skin: Warm, Dry Psy/Mental Status: No: Alert, Anxious - Problem List Review Problem List Initiated/Reviewed/Updated: Yes - My Orders Last 24 Hours: My Active Orders 01/14/19 08:58 Echo Comp wo Cont [US] Routine 01/14/19 09:00 Potassium Chloride 20 MEQ,Lidocaine 1% 2 ML IN 100ML NS @ 50 MLS/HR Potassium Chloride 20 meq Lidocaine 1% [Xylocaine 1%] 2 ml Sodium Chloride 0.9% [Normal Saline] 100 ml IV Q2H 01/15/19 05:00 BASIC METABOLIC PANEL,BMP [CHEM] Timed CBC W/O DIFF,HEMOGRAM [HEME] Timed (1) - Plan Plan:: ASSESSMENT / PLAN Anemia-still no evidence of active bleeding, hemoglobin stable. -Saline lock IV -Protonix 40 mg IV daily -Repeat hemoglobin level in the morning Bilateral pneumonia - initially felt to be fluid versus infection, but patchy infiltrates most consistent with pneumonia. Clinically improving and minimal ventilator support at this time. -Blood and sputum cultures pending -IV doxycycline and Pip/Tazo Hypoxic respiratory failure - secondary to bilateral pulmonary infiltrates, stable since intubation with adequate oxygenation on current ventilator settings. -Mechanical ventilation -planning trial of extubation later this morning Seizure disorder - stable -Currently treated with lamotrigine, will give rectally while intubated Anxiety - significant chronic anxiety may hamper weaning trial and extubation. -continue home medications Hypertension -continue home medications Maintenance issues -Nutrition: Nothing by mouth -Fernando catheter; catheter placed to monitor urine output -DVT: Lovenox 40 mg subcutaneous daily -PPI; Protonix 40 mg IV daily Disposition - I would anticipate discharge to the [facility] after the hospital stay Primary care provider: Dr. Goddard, [place], [place]. Sammy Hanson MD
[2019-01-14] MEDS: Potassium Chloride 20 MEQ, Lidocaine 1% 2 ML in Sodium Chloride 0.9% 100 ML IV SCH ×2 (10:06→12:08)
[2019-01-14] MEDS: lamoTRIgine 25 MG Tab SCH (10:06)
[2019-01-14] MEDS: Verapamil 120 MG Tab.ER PO SCH (10:17)
[2019-01-14] MEDS: Hydrochlorothiazide 25 MG Tab PO SCH (10:17)
[2019-01-14] MEDS: lamoTRIgine 100 MG Tab SCH (10:20)
[2019-01-14] MEDS: Metoprolol Tartrate 25 MG Tab PO SCH ×2 (10:23→20:16)
[2019-01-14] MEDS: FLUoxetine Solution 20 MG/5 ML ML 120 ML Bottle PO SCH (10:24)
--- NOTE | 2019-01-14 10:47 | OR ---
DATE OF PROCEDURE: 01/11/2019 PROCEDURE: EGD. FINDINGS: 1. Prominent cobblestoning of the gastric antrum (biopsied using cold biopsy forceps). 2. Inflammation at the GE junction, concerning for reflux (biopsied using cold biopsy forceps). COMPLICATIONS: None. SURGEON: Mj Espinoza MD PHARMACY PICKING TECH: None. ANESTHESIA: MAC. RISKS: Risks, benefits, alternatives, and limitations including, but not limited to infection, bleeding, and perforation were explained to the patient who wished to proceed. PROCEDURE IN DETAIL: The patient was placed in left lateral decubitus position. EGD scope was introduced and advanced atraumatically to the second part of the duodenum. In the duodenum and inspected bulb, no evidence of duodenitis or any other abnormality. Within the stomach itself, there was some cobblestoning without any evidence of bleeding, but there was mild gastritis, biopsied using cold biopsy forceps to evaluate for H. pylori and pathological diagnosis. The patient also had some inflammation at the GE junction consistent with reflux disease. Using narrow band imaging, no evidence of Nieto's esophagus was noted. This was biopsied in all 4 quadrants. New abnormalities in the esophagus. The patient tolerated the procedure well. Mj Espinoza MD /[id number]
[2019-01-14] MEDS: LORazepam 2 MG/ML SDV IV PRN ×3 (14:22→18:08)
[2019-01-14] MEDS: Enoxaparin 40 MG/0.4 ML Syringe SUBCUT SCH (16:44)
[2019-01-14] MEDS: ClonazePAM 1 MG Tab PO SCH (20:16)
[2019-01-14] MEDS: Lactobacillus Rhamnosus GG (Probiotic) Cap PO SCH (20:16)
[2019-01-14] MEDS: lamoTRIgine 100 MG Tab PO SCH (20:17)
[2019-01-14] MEDS: lamoTRIgine 25 MG Tab PO SCH (20:17)
[2019-01-15] MEDS: Piperacillin/Tazobactam/Dext 3.375 GM in Premix Bag 1 BAG IV SCH ×4 (01:03→20:36)
[2019-01-15] MEDS: Doxycycline 100 MG in Sodium Chloride 0.9% 100 ML IV SCH ×2 (02:38→14:52)
[2019-01-15] MEDS: Verapamil 120 MG Tab.ER PO SCH (08:14)
[2019-01-15] MEDS: lamoTRIgine 25 MG Tab PO SCH (08:15)
[2019-01-15] MEDS: Lactobacillus Rhamnosus GG (Probiotic) Cap PO SCH ×2 (08:15→20:37)
[2019-01-15] MEDS: lamoTRIgine 100 MG Tab PO SCH (08:16)
[2019-01-15] MEDS: Hydrochlorothiazide 25 MG Tab PO SCH (08:16)
[2019-01-15] MEDS: Metoprolol Tartrate 25 MG Tab PO SCH ×2 (08:16→20:36)
[2019-01-15] MEDS: FLUoxetine Solution 20 MG/5 ML ML 120 ML Bottle PO SCH (08:17)
--- NOTE | 2019-01-15 09:01 | PCM.PN ---
- General Info Date of Service: 01/15/19 Subjective Update: She was successfully extubated yesterday around lunchtime and has been on nasal cannula supplemental oxygen since that time. Overnight there was some difficulty with confusion and mild agitation. The patient did not want to take her evening pills but eventually did so. She is very sleepy and has a little bit of difficulty with word finding this morning. She reports only mild shortness of breath. No complaints of pain at this time. Vital signs have all been stable and she is requiring 2 L of supplemental oxygen. - Review of Systems General: Denies: Fever - Patient Data Vitals - Most Recent: Last Vital Signs Temp 35.4 C 01/15/19 08:00 Pulse 80 01/15/19 08:16 Resp 25 H 01/15/19 08:00 BP 147/72 H 01/15/19 08:16 Pulse Ox 97 01/15/19 08:00 Weight - Most Recent: 48.336 kg I&O - Last 24 Hours: Intake & Output 01/14/19 01/15/19 01/15/19 22:59 06:59 14:59 Intake Total 920 585 200 Output Total 300 Balance 620 585 200 Lab Results Last 24 Hours: Laboratory Results - last 24 hr 01/10/19 01/15/19 01/15/19 Range/Units 22:30 04:45 04:45 WBC 13.6 H (4.5-11.0) K/uL RBC 2.92 L (3.30-5.50) M/uL Hgb 7.5 L (12.0-15.0) g/dL Hct 24.6 L (36.0-48.0) % MCV 84 (80-98) fL MCH 26 L (27-31) pg MCHC 31 L (32-36) % Plt Count 657 H (150-400) K/uL Sodium 142 (140-148) mmol/L Potassium 3.2 L (3.6-5.2) mmol/L Chloride 107 (100-108) mmol/L Carbon Dioxide 23 (21-32) mmol/L Anion Gap 15.2 H (5.0-14.0) mmol/L BUN 14 (7-18) mg/dL Creatinine 0.6 (0.6-1.0) mg/dL Est Cr Clr Drug Dosing 61.77 mL/min Estimated GFR (MDRD) > 60 (>60) Glucose 102 (74-106) mg/dL Calcium 7.2 L (8.5-10.1) mg/dL Crossmatch See Detail Cecilio Results Last 24 Hours: Microbiology 01/12/19 16:07 Gram Stain - Final Endotrachael Aspirate Respiratory Culture - Final NORMAL RESPIRATORY MIKHAIL 2 DAYS 01/12/19 13:28 Aerobic Blood Culture - Preliminary Blood - Arm, Right NO GROWTH AFTER 2 DAYS Anaerobic Blood Culture - Preliminary NO GROWTH AFTER 2 DAYS Med Orders - Current: Current Medications Acetaminophen (Tylenol) 650 mg PO Q4H PRN PRN Reason: Pain (Mild 1-3)/fever Last Admin: 01/11/19 20:20 Dose: 650 mg Albuterol (Proventil Neb Soln) 2.5 mg NEB Q4H PRN PRN Reason: Shortness Of Breath/wheezing Docusate Sodium (Colace) 100 mg PO BID PRN PRN Reason: Constipation Enoxaparin Sodium (Lovenox) 40 mg SUBCUT Q24H [facility] Last Admin: 01/14/19 16:44 Dose: 40 mg Fluoxetine HCl (Prozac) 80 mg PO DAILY [facility] Last Admin: 01/15/19 08:17 Dose: 80 mg Hydrochlorothiazide (Hydrochlorothiazide) 25 mg PO DAILY [facility] Last Admin: 01/15/19 08:16 Dose: 25 mg Hyoscyamine (Hyomax-Sl) 0.125 mg SL TID PRN PRN Reason: Nausea Piperacillin/Tazobactam/ (Dextrose 3.375 gm/ Premix) 50 mls @ 100 mls/hr IV Q6H [facility] Last Admin: 01/15/19 08:14 Dose: 100 mls/hr Doxycycline Hyclate 100 mg/ (Sodium Chloride) 100 mls @ 100 mls/hr IV Q12H [facility] Last Admin: 01/15/19 02:38 Dose: 100 mls/hr Sodium Chloride (Normal Saline) 1,000 mls @ 0 mls/hr IV ASDIRECTED [facility] Last Admin: 01/14/19 05:16 Dose: 25 mls/hr Potassium Chloride 20 meq/Lidocaine HCl 2 ml/ Sodium Chloride 112 mls @ 56 mls/ hr IV Q2H [facility] Stop: 01/15/19 13:59 Lactobacillus Rhamnosus (Culturelle) 1 cap PO BID [facility] Last Admin: 01/15/19 08:15 Dose: 1 cap Lamotrigine (Lamotrigine) 75 mg PO BID [facility] Last Admin: 01/15/19 08:15 Dose: 75 mg Lamotrigine (Lamotrigine) 100 mg PO BID [facility] Last Admin: 01/15/19 08:16 Dose: 100 mg Lorazepam (Ativan) 0.5 - 1 mg IV Q2H PRN PRN Reason: Anxiety Last Admin: 01/14/19 18:08 Dose: 1 mg Metoprolol Tartrate (Lopressor) 25 mg PO BID [facility] Last Admin: 01/15/19 08:16 Dose: 25 mg Ondansetron HCl (Zofran Odt) 4 mg PO Q6H PRN PRN Reason: Nausea able to take PO Ondansetron HCl (Zofran) 4 mg IV Q4H PRN PRN Reason: Nausea/Vomiting Oxycodone HCl (Oxycodone) 5 mg PO Q4H PRN PRN Reason: Pain Last Admin: 01/11/19 20:20 Dose: 5 mg Verapamil HCl (Calan Sr) 240 mg PO DAILY [facility] Last Admin: 01/15/19 08:14 Dose: 240 mg Discontinued Medications Clonazepam (Klonopin) 1 mg PO BEDTIME [facility] Last Admin: 01/14/19 20:16 Dose: 1 mg Fluoxetine HCl (Prozac) 80 mg PO DAILY [facility] Last Admin: 01/11/19 11:00 Dose: 80 mg Furosemide (Lasix) 20 mg IVPUSH ONETIME ONE Stop: 01/12/19 12:31 Last Admin: 01/12/19 12:32 Dose: 20 mg Furosemide (Lasix) Confirm Administered Dose 20 mg .ROUTE .STK-MED ONE Stop: 01/12/19 12:30 Last Admin: 01/12/19 12:33 Dose: Not Given Furosemide (Lasix) 40 mg IVPUSH NOW ONE Stop: 01/12/19 15:37 Last Admin: 01/12/19 16:09 Dose: 40 mg Furosemide (Lasix) 40 mg IVPUSH NOW ONE Stop: 01/13/19 09:52 Last Admin: 01/13/19 11:30 Dose: 40 mg Hydromorphone HCl (Dilaudid) 0.5 mg IVPUSH ONETIME ONE Stop: 01/12/19 12:01 Last Admin: 01/12/19 12:00 Dose: 0.5 mg Sodium Chloride (Normal Saline) 1,000 mls @ 1,000 mls/hr IV ASDIRECTED ELLYN Last Admin: 01/11/19 06:17 Dose: 1,000 mls/hr Sodium Chloride (Normal Saline) 1,000 mls @ 125 mls/hr IV ONETIME ONE Stop: 01/11/19 05:43 Last Admin: 01/10/19 21:45 Dose: 125 mls/hr Potassium Chloride 20 meq/Lidocaine HCl 2 ml/ Sodium Chloride 112 mls @ 50 mls/ hr IV Q2H ELLYN Stop: 01/11/19 13:59 Last Admin: 01/11/19 17:25 Dose: 50 mls/hr Vancomycin HCl 1 gm/ Sodium (Chloride) 250 mls @ 167 mls/hr IV Q24H ELLYN Last Admin: 01/12/19 14:05 Dose: 167 mls/hr Heparin Sodium (Porcine) 5,000 (units/ Sodium Chloride) 501 mls @ 0 mls/hr IV ASDIRECTED ELLYN Propofol (Diprivan 100 Ml) 100 mls @ 1.45 mls/hr IV TITRATE ELLYN; Protocol Last Titration: 01/14/19 11:15 Dose: 0 mcg/kg/min, 0 mls/hr Potassium Chloride 40 meq/ (Premix) 100 mls @ 25 mls/hr IV ONETIME ONE Stop: 01/12/19 19:29 Last Admin: 01/12/19 15:53 Dose: 25 mls/hr Magnesium Sulfate 2 gm/ Premix 50 mls @ 25 mls/hr IV Q6H ELLYN Stop: 01/13/19 16:59 Last Admin: 01/13/19 14:55 Dose: 25 mls/hr Potassium Chloride 40 meq/ (Premix) 100 mls @ 25 mls/hr IV ONETIME ONE Stop: 01/13/19 12:59 Last Admin: 01/13/19 08:52 Dose: 25 mls/hr Sodium Chloride (Normal Saline) 1,000 mls @ 125 mls/hr IV ASDIRECTED ELLYN Potassium Chloride 20 meq/Lidocaine HCl 2 ml/ Sodium Chloride 112 mls @ 56 mls/ hr IV Q2H ELL[facility] Stop: 01/14/19 13:59 Last Admin: 01/14/19 12:08 Dose: 56 mls/hr Influenza Virus Vaccine (Pharmacy To Dose - Influenza Vaccine) 1 each IM ONETIME ONE Stop: 01/12/19 11:01 Influenza Virus Vaccine (Fluzone High-Dose Syringe) 180 mcg IM .ONCE ONE Stop: 01/12/19 09:01 Last Admin: 01/12/19 08:47 Dose: Not Given Lamotrigine (Lamotrigine) 100 mg PO BID [facility] Last Admin: 01/13/19 17:10 Dose: Not Given Lamotrigine (Lamotrigine) 75 mg PO BID [facility] Last Admin: 01/13/19 17:10 Dose: Not Given Lamotrigine (Lamotrigine) 75 mg .XX BID [facility] Last Admin: 01/14/19 10:06 Dose: 75 mg Lamotrigine (Lamotrigine) 100 mg .XX BID [facility] Last Admin: 01/14/19 10:20 Dose: 100 mg Lorazepam (Ativan) 0.5 mg IVPUSH ONETIME ONE Stop: 01/10/19 20:20 Last Admin: 01/10/19 20:45 Dose: 0.5 mg Lorazepam (Ativan) 1 mg IV Q4H PRN PRN Reason: Anxiety Last Admin: 01/12/19 20:07 Dose: 1 mg Lorazepam (Ativan) 0.5 mg IVPUSH ONETIME ONE Stop: 01/12/19 13:37 Last Admin: 01/12/19 13:40 Dose: 0.5 mg Lorazepam (Ativan) 0.5 mg IV Q2H PRN PRN Reason: Anxiety Last Admin: 01/14/19 14:22 Dose: 0.5 mg Naloxone HCl (Narcan) 0.1 mg IVPUSH ASDIRECTED PRN PRN Reason: Sedation Last Admin: 01/12/19 12:25 Dose: 0.1 mg Non-Formulary Medication (Lamotrigine [Lamictal]) 175 mg PO BID [facility] Last Admin: 01/11/19 01:26 Dose: Not Given Pantoprazole Sodium (Protonix Iv) 40 mg IV BID [facility] Last Admin: 01/11/19 11:01 Dose: 40 mg Pantoprazole Sodium (Protonix) 40 mg PO DAILY@0730 [facility] Last Admin: 01/12/19 08:45 Dose: 40 mg Pantoprazole Sodium (Protonix Iv) 40 mg IVPUSH Q24H [facility] Last Admin: 01/13/19 16:07 Dose: 40 mg Propofol (Diprivan 20 Ml) Confirm Administered Dose 200 mg .ROUTE .STK-MED ONE Stop: 01/11/19 09:35 Propofol (Diprivan 20 Ml) 200 mg .ROUTE .STK-MED ONE Stop: 01/12/19 14:01 Vancomycin HCl (Vancomycin) 1 gm IV .PHARMACY TO DOSE ELLYN Stop: 01/12/19 14:01 - Exam Quality Assessment: Supplemental Oxygen General: Alert, Cooperative, No Acute Distress, Lethargic. No: Oriented HEENT: Pupils Equal Lungs: Normal Respiratory Effort, Crackles (right lower lung and right upper lung ) Cardiovascular: Regular Rate, Regular Rhythm, Murmurs GI/Abdominal Exam: Soft Extremities: No Pedal Edema Skin: Warm, Dry Neurological: Strength Equal Bilateral. No: Normal Speech, Normal Tone Psy/Mental Status: Alert, Normal Affect - Problem List Review Problem List Initiated/Reviewed/Updated: Yes - My Orders Last 24 Hours: My Active Orders 01/14/19 08:58 Echo Comp wo Cont [US] Routine 01/14/19 14:32 LORazepam [Ativan] 0.5 - 1 mg IV Q2H PRN 01/14/19 21:00 Lactobacillus Rhamnosus GG [Culturelle] 1 cap PO BID lamoTRIgine 100 mg PO BID lamoTRIgine 75 mg PO BID 01/14/19 Dinner Full Liquid Diet [DIET] 01/15/19 04:37 RED BLOOD CELLS LP [BBK] Routine TYPE AND SCREEN [BBK] Routine 01/15/19 08:23 Transfuse Red Blood Cells [COMM] Routine 01/15/19 08:55 Head wo Cont [CT] Routine 01/15/19 08:57 Arterial Line Discontinue [OM.PC] Routine 01/15/19 10:00 Potassium Chloride 20 meq Lidocaine 1% [Xylocaine 1%] 2 ml Sodium Chloride 0.9 % [Normal Saline] 100 ml IV Q2H 01/16/19 05:00 BASIC METABOLIC PANEL,BMP [CHEM] Timed CBC W/O DIFF,HEMOGRAM [HEME] Timed (1) - Plan Plan:: ASSESSMENT / PLAN Bilateral pneumonia - initially felt to be fluid versus infection, but patchy infiltrates most consistent with pneumonia. Clinically improving and doing well since extubation. Still requiring supplemental oxygen. Cultures have been negative so far. -Blood and sputum cultures pending -Idoxycycline and Pip/Tazo Hypoxic respiratory failure - secondary to bilateral pulmonary infiltrates, stable since extubation but still requiring supplemental oxygen. -Management as above -Supplement oxygen Anemia - noted to have slightly darker stools yesterday. Hemoglobin slowly trending down. -Saline lock IV -Protonix 40 mg daily -Transfuse 1 unit of packed red blood cells today -Repeat hemoglobin level in the morning Seizure disorder - stable -Currently treated with lamotrigine Anxiety - stable so far. With her somnolence this morning I'm going to hold her clonazepam. -continue home medications Hypertension -continue home medications Maintenance issues -Nutrition: Full liquids -Fernando catheter; catheter placed to monitor urine output -DVT: Lovenox 40 mg subcutaneous daily -PPI; Protonix 40 mg daily Disposition - I would anticipate discharge to the long-term after the hospital stay Primary care provider: Dr. Goddard, [place], [place]. Sammy Hanson MD
[2019-01-15] MEDS: Potassium Chloride 20 MEQ, Lidocaine 1% 2 ML in Sodium Chloride 0.9% 100 ML IV SCH ×2 (10:38→12:53)
--- NOTE | 2019-01-15 10:53 | CRLCT ---
INDICATION: Delirium. TECHNIQUE: Noncontrast head CT. COMPARISON: December 07, 2015. FINDINGS: No evidence for acute intracranial hemorrhage, hydrocephalus, mass effect, or shift of midline structures. No evidence for acute ischemic change or infarction. Mild cerebral and cerebellar atrophy appropriate for the patient`s age. No calvarial or skullbase fracture. The included paranasal sinuses and mastoid air cells are grossly clear. Impression : Chronic age related changes intracranially. No acute intracranial process identified. No significant change. Please note that all CT scans at this facility use dose modulation, iterative reconstruction, and/or weight-based dosing when appropriate to reduce radiation dose to as low as reasonably achievable. Dictated by Pawel Hurtado MD @ Jan 15 2019 10:49AM Signed by Dr. Pawel Hurtado @ Jan 15 2019 10:52AM
[2019-01-15] MEDS: oxyCODONE 5 MG Tab PO PRN ×2 (11:18→20:37)
[2019-01-15] MEDS ORDERED: Iopamidol 612 MG/ML 100 ML Bottle IV PRN (14:01)
--- NOTE | 2019-01-15 15:06 | CRLCT ---
INDICATION: abdominal pain, hematochezia CT ABDOMEN AND PELVIS WITH CONTRAST TECHNIQUE: Multidetector CT imaging was performed through the abdomen and pelvis following intravenous contrast administration using 100 mL Isovue 300. Coronal and sagittal reconstructions were generated. COMPARISON: 10/24/2018 CT abdomen and pelvis. FINDINGS: Lower chest: Bibasilar infiltrate and/or atelectasis, greatest in the right middle lobe, possibly representing pneumonia. Left pleural effusion. Mild cardiomegaly and small pericardial effusion. Liver: Incidental calcified granulomas. Gallbladder and bile ducts: Status post cholecystectomy. Unchanged mild fullness of the biliary tree consistent with post cholecystectomy reservoir effect. Pancreas: Unremarkable. Spleen: Multiple incidental calcified granulomas. Adrenals: No nodules or masses. Kidneys, ureters, and urinary bladder: Unchanged 2.6 centimeter left renal cyst. No suspicious renal masses or hydronephrosis. Fernando catheter extending into the urinary bladder, which is nondistended. Gastrointestinal tract: Normal caliber small bowel without wall thickening. The appendix is normal. A few sigmoid colon diverticula, without evidence of diverticulitis. Diffuse mild wall prominence of the colon is favored to be due to nondistention although mild colitis is not entirely excluded. Vascular structures: Normal caliber abdominal aorta. Moderate aortoiliac atherosclerotic calcifications. Peritoneum: Small amount of free fluid in the low pelvis. No free air or evidence of intra-abdominal abscess. Lymph nodes: No pathologically enlarged nodes identified. Reproductive organs: Status post hysterectomy, as before. No pelvic masses. Bones: Spinal degenerative changes and scattered Schmorl`s nodes. IMPRESSION: 1. Diffuse mild wall prominence of the colon is favored to be due to nondistention although mild colitis is not entirely excluded. 2. Nonspecific mild free fluid in the pelvis. 3. Bibasilar lung infiltrate and/or atelectasis, possibly reflecting pneumonia. Left pleural effusion. 4. Mild cardiomegaly and small pericardial effusion. 5. Nonacute additional findings as detailed above. KURT EDEN MD [employer] Dictated by Som Eden MD @ 01/15/2019 3:05:00 PM Dictated by: Som Eden MD @ 01/15/2019 15:05:40 (Electronically Signed)
[2019-01-15] MEDS: Levofloxacin/Dextrose 5%-Water 750 MG in Premix Bag 1 BAG IV SCH (16:53)
[2019-01-15] MEDS: Enoxaparin 40 MG/0.4 ML Syringe SUBCUT SCH (16:54)
[2019-01-15] MEDS: Albuterol 0.083% 2.5 MG/3 ML Neb Soln NEB PRN (20:32)
[2019-01-15] MEDS: Melatonin 3 MG Tab PO SCH (20:36)
[2019-01-16] MEDS: Haloperidol Lactate 5 MG/ML SDV IVPUSH PRN ×2 (01:29→04:42)
[2019-01-16] MEDS: Piperacillin/Tazobactam/Dext 3.375 GM in Premix Bag 1 BAG IV SCH ×2 (01:29→08:24)
[2019-01-16] MEDS: Sodium Chloride 0.9% 1,000 ML IV SCH (04:18)
[2019-01-16] MEDS: Verapamil 120 MG Tab.ER PO SCH ×2 (08:34→10:26)
[2019-01-16] MEDS: Lactobacillus Rhamnosus GG (Probiotic) Cap PO SCH ×3 (08:37→20:10)
[2019-01-16] MEDS: Hydrochlorothiazide 25 MG Tab PO SCH ×2 (08:38→10:24)
[2019-01-16] MEDS: Metoprolol Tartrate 25 MG Tab PO SCH ×3 (08:38→20:11)
[2019-01-16] MEDS: FLUoxetine Solution 20 MG/5 ML ML 120 ML Bottle PO SCH (08:41)
[2019-01-16] MEDS ORDERED: Potassium Chloride 20 MEQ Tab.ER PO ONE (08:45)
--- NOTE | 2019-01-16 09:09 | PCM.PN ---
- General Info Date of Service: 01/16/19 Subjective Update: Overnight the patient had difficulty with restlessness and some agitation. She had more of a hypoactive delirium throughout much of the day but became more hyperactive in the evening. She received 2 doses of Haldol overnight. This morning she is belligerent and saying she wants to go home. She requires the assist of 2 to get from the bed to the chair. She is somewhat elusive with questions and does not answer them straight out. Vital signs have been stable. She does continue to require 2 L of supplemental oxygen. She has not had any fevers. Functional Status: Reports: Pain Controlled - Review of Systems General: Denies: Fever Neurological: Reports: Confusion Psychiatric: Reports: Agitation - Patient Data Vitals - Most Recent: Last Vital Signs Temp 36.3 C 01/16/19 08:00 Pulse 93 01/16/19 08:00 Resp 20 01/16/19 08:00 BP 187/63 H 01/16/19 08:00 Pulse Ox 91 L 01/16/19 08:00 Weight - Most Recent: 48.336 kg I&O - Last 24 Hours: Intake & Output 01/15/19 01/16/19 01/16/19 22:59 06:59 14:59 Intake Total 1250 845 Output Total 625 575 Balance 625 270 Lab Results Last 24 Hours: Laboratory Results - last 24 hr 01/15/19 01/16/19 01/16/19 Range/Units 04:37 05:00 05:19 WBC 15.8 H (4.5-11.0) K/uL RBC 4.00 (3.30-5.50) M/uL Hgb 10.4 L D (12.0-15.0) g/dL Hct 33.3 L (36.0-48.0) % MCV 83 (80-98) fL MCH 26 L (27-31) pg MCHC 31 L (32-36) % Plt Count 690 H (150-400) K/uL Sodium 140 (140-148) mmol/L Potassium 3.4 L (3.6-5.2) mmol/L Chloride 105 (100-108) mmol/L Carbon Dioxide 23 (21-32) mmol/L Anion Gap 15.4 H (5.0-14.0) mmol/L BUN 14 (7-18) mg/dL Creatinine 0.8 (0.6-1.0) mg/dL Est Cr Clr Drug Dosing 46.33 mL/min Estimated GFR (MDRD) > 60 (>60) Glucose 116 H (74-106) mg/dL Calcium 7.6 L (8.5-10.1) mg/dL Blood Type A POSITIVE Gel Antibody Screen Negative Crossmatch See Detail Cecilio Results Last 24 Hours: Microbiology 01/12/19 13:28 Aerobic Blood Culture - Preliminary Blood - Arm, Right NO GROWTH AFTER 3 DAYS Anaerobic Blood Culture - Preliminary NO GROWTH AFTER 3 DAYS 01/12/19 16:07 Gram Stain - Final Endotrachael Aspirate Respiratory Culture - Final NORMAL RESPIRATORY MIKHAIL 2 DAYS Med Orders - Current: Current Medications Acetaminophen (Tylenol) 650 mg PO Q4H PRN PRN Reason: Pain (Mild 1-3)/fever Last Admin: 01/11/19 20:20 Dose: 650 mg Albuterol (Proventil Neb Soln) 2.5 mg NEB Q4H PRN PRN Reason: Shortness Of Breath/wheezing Last Admin: 01/15/19 20:32 Dose: 2.5 mg Clonazepam (Klonopin) 0.5 mg PO BEDTIME [facility] [place] Docusate Sodium (Colace) 100 mg PO BID PRN PRN Reason: Constipation Enoxaparin Sodium (Lovenox) 40 mg SUBCUT Q24H [facility] [place] Last Admin: 01/15/19 16:54 Dose: 40 mg Fluoxetine HCl (Prozac) 80 mg PO DAILY [facility] [place] Last Admin: 01/16/19 08:41 Dose: Not Given Haloperidol Lactate (Haldol) 1 mg IVPUSH Q4H PRN PRN Reason: Agitation Last Admin: 01/16/19 04:42 Dose: 1 mg Hydrochlorothiazide (Hydrochlorothiazide) 25 mg PO DAILY [facility] [place] Last Admin: 01/15/19 08:16 Dose: 25 mg Hyoscyamine (Hyomax-Sl) 0.125 mg SL TID PRN PRN Reason: Nausea Piperacillin/Tazobactam/ (Dextrose 3.375 gm/ Premix) 50 mls @ 100 mls/hr IV Q6H [facility] [place] Last Admin: 01/16/19 08:24 Dose: 100 mls/hr Sodium Chloride (Normal Saline) 1,000 mls @ 0 mls/hr IV ASDIRECTED [facility] [place] Last Admin: 01/16/19 04:18 Dose: 25 mls/hr Levofloxacin/Dextrose 750 mg/ (Premix) 150 mls @ 100 mls/hr IV Q24H [facility] [place] Last Admin: 01/15/19 16:53 Dose: 100 mls/hr Lactobacillus Rhamnosus (Culturelle) 1 cap PO BID [facility] [place] Last Admin: 01/15/19 20:37 Dose: 1 cap Lamotrigine (Lamotrigine) 150 mg PO BID [facility] [place] Melatonin (Melatonin) 9 mg PO BEDTIME [facility] Last Admin: 01/15/19 20:36 Dose: 9 mg Metoprolol Tartrate (Lopressor) 25 mg PO BID [facility] [place] Last Admin: 01/15/19 20:36 Dose: 25 mg Ondansetron HCl (Zofran Odt) 4 mg PO Q6H PRN PRN Reason: Nausea able to take PO Ondansetron HCl (Zofran) 4 mg IV Q4H PRN PRN Reason: Nausea/Vomiting Oxycodone HCl (Oxycodone) 5 mg PO Q4H PRN PRN Reason: Pain Last Admin: 01/15/19 20:37 Dose: 5 mg Verapamil HCl (Calan Sr) 240 mg PO DAILY [facility] [place] Last Admin: 01/15/19 08:14 Dose: 240 mg Discontinued Medications Clonazepam (Klonopin) 1 mg PO BEDTIME [facility] [place] Last Admin: 01/14/19 20:16 Dose: 1 mg Fluoxetine HCl (Prozac) 80 mg PO DAILY [facility] [place] Last Admin: 01/11/19 11:00 Dose: 80 mg Furosemide (Lasix) 20 mg IVPUSH ONETIME ONE Stop: 01/12/19 12:31 Last Admin: 01/12/19 12:32 Dose: 20 mg Furosemide (Lasix) Confirm Administered Dose 20 mg .ROUTE .STK-MED ONE Stop: 01/12/19 12:30 Last Admin: 01/12/19 12:33 Dose: Not Given Furosemide (Lasix) 40 mg IVPUSH NOW ONE Stop: 01/12/19 15:37 Last Admin: 01/12/19 16:09 Dose: 40 mg Furosemide (Lasix) 40 mg IVPUSH NOW ONE Stop: 01/13/19 09:52 Last Admin: 01/13/19 11:30 Dose: 40 mg Hydromorphone HCl (Dilaudid) 0.5 mg IVPUSH ONETIME ONE Stop: 01/12/19 12:01 Last Admin: 01/12/19 12:00 Dose: 0.5 mg Sodium Chloride (Normal Saline) 1,000 mls @ 1,000 mls/hr IV ASDIRECTED ELLYN Last Admin: 01/11/19 06:17 Dose: 1,000 mls/hr Sodium Chloride (Normal Saline) 1,000 mls @ 125 mls/hr IV ONETIME ONE Stop: 01/11/19 05:43 Last Admin: 01/10/19 21:45 Dose: 125 mls/hr Potassium Chloride 20 meq/Lidocaine HCl 2 ml/ Sodium Chloride 112 mls @ 50 mls/ hr IV Q2H [facility] Stop: 01/11/19 13:59 Last Admin: 01/11/19 17:25 Dose: 50 mls/hr Vancomycin HCl 1 gm/ Sodium (Chloride) 250 mls @ 167 mls/hr IV Q24H [facility] [place] Last Admin: 01/12/19 14:05 Dose: 167 mls/hr Heparin Sodium (Porcine) 5,000 (units/ Sodium Chloride) 501 mls @ 0 mls/hr IV ASDIRECTED [facility] Propofol (Diprivan 100 Ml) 100 mls @ 1.45 mls/hr IV TITRATE [facility] [place]; Protocol Last Titration: 01/14/19 11:15 Dose: 0 mcg/kg/min, 0 mls/hr Potassium Chloride 40 meq/ (Premix) 100 mls @ 25 mls/hr IV ONETIME ONE Stop: 01/12/19 19:29 Last Admin: 01/12/19 15:53 Dose: 25 mls/hr Magnesium Sulfate 2 gm/ Premix 50 mls @ 25 mls/hr IV Q6H [facility] Stop: 01/13/19 16:59 Last Admin: 01/13/19 14:55 Dose: 25 mls/hr Potassium Chloride 40 meq/ (Premix) 100 mls @ 25 mls/hr IV ONETIME ONE Stop: 01/13/19 12:59 Last Admin: 01/13/19 08:52 Dose: 25 mls/hr Doxycycline Hyclate 100 mg/ (Sodium Chloride) 100 mls @ 100 mls/hr IV Q12H [facility] [place] Last Admin: 01/15/19 14:52 Dose: 100 mls/hr Sodium Chloride (Normal Saline) 1,000 mls @ 125 mls/hr IV ASDIRECTED [facility] [place] Potassium Chloride 20 meq/Lidocaine HCl 2 ml/ Sodium Chloride 112 mls @ 56 mls/ hr IV Q2H [facility] Stop: 01/14/19 13:59 Last Admin: 01/14/19 12:08 Dose: 56 mls/hr Potassium Chloride 20 meq/Lidocaine HCl 2 ml/ Sodium Chloride 112 mls @ 56 mls/ hr IV Q2H [facility] Stop: 01/15/19 13:59 Last Admin: 01/15/19 12:53 Dose: 56 mls/hr Sodium Chloride (Normal Saline) 76 mls @ 3 mls/sec IV ASDIRECTED [facility] Stop: 01/15/19 14:16 Last Admin: 01/15/19 14:32 Dose: 3 mls/sec Influenza Virus Vaccine (Pharmacy To Dose - Influenza Vaccine) 1 each IM ONETIME ONE Stop: 01/12/19 11:01 Influenza Virus Vaccine (Fluzone High-Dose Syringe) 180 mcg IM .ONCE ONE Stop: 01/12/19 09:01 Last Admin: 01/12/19 08:47 Dose: Not Given Iopamidol (Isovue-300 (61%)) 100 ml IV . DIRECTED PRN PRN Reason: RADIOLOGY EXAM Stop: 01/16/19 14:02 Last Admin: 01/15/19 14:33 Dose: 100 ml Lamotrigine (Lamotrigine) 100 mg PO BID [facility] [place] Last Admin: 01/13/19 17:10 Dose: Not Given Lamotrigine (Lamotrigine) 75 mg PO BID [facility] [place] Last Admin: 01/13/19 17:10 Dose: Not Given Lamotrigine (Lamotrigine) 75 mg .XX BID [facility] [place] Last Admin: 01/14/19 10:06 Dose: 75 mg Lamotrigine (Lamotrigine) 100 mg .XX BID [facility] [place] Last Admin: 01/14/19 10:20 Dose: 100 mg Lamotrigine (Lamotrigine) 75 mg PO BID [facility] [place] Last Admin: 01/15/19 08:15 Dose: 75 mg Lamotrigine (Lamotrigine) 100 mg PO BID [facility] [place] Last Admin: 01/15/19 08:16 Dose: 100 mg Lorazepam (Ativan) 0.5 mg IVPUSH ONETIME ONE Stop: 01/10/19 20:20 Last Admin: 01/10/19 20:45 Dose: 0.5 mg Lorazepam (Ativan) 1 mg IV Q4H PRN PRN Reason: Anxiety Last Admin: 01/12/19 20:07 Dose: 1 mg Lorazepam (Ativan) 0.5 mg IVPUSH ONETIME ONE Stop: 01/12/19 13:37 Last Admin: 01/12/19 13:40 Dose: 0.5 mg Lorazepam (Ativan) 0.5 mg IV Q2H PRN PRN Reason: Anxiety Last Admin: 01/14/19 14:22 Dose: 0.5 mg Lorazepam (Ativan) 0.5 - 1 mg IV Q2H PRN PRN Reason: Anxiety Last Admin: 01/14/19 18:08 Dose: 1 mg Naloxone HCl (Narcan) 0.1 mg IVPUSH ASDIRECTED PRN PRN Reason: Sedation Last Admin: 01/12/19 12:25 Dose: 0.1 mg Non-Formulary Medication (Lamotrigine [Lamictal]) 175 mg PO BID [facility] [place] Last Admin: 01/11/19 01:26 Dose: Not Given Pantoprazole Sodium (Protonix Iv) 40 mg IV BID [facility] [place] Last Admin: 01/11/19 11:01 Dose: 40 mg Pantoprazole Sodium (Protonix) 40 mg PO DAILY@0730 [facility] [place] Last Admin: 01/12/19 08:45 Dose: 40 mg Pantoprazole Sodium (Protonix Iv) 40 mg IVPUSH Q24H [facility] [place] Last Admin: 01/13/19 16:07 Dose: 40 mg Potassium Chloride (Klor-Con M20) 40 meq PO ONETIME ONE Stop: 01/16/19 08:46 Propofol (Diprivan 20 Ml) Confirm Administered Dose 200 mg .ROUTE .STK-MED ONE Stop: 01/11/19 09:35 Propofol (Diprivan 20 Ml) 200 mg .ROUTE .STK-MED ONE Stop: 01/12/19 14:01 Vancomycin HCl (Vancomycin) 1 gm IV .PHARMACY TO DOSE [facility] Stop: 01/12/19 14:01 - Exam Quality Assessment: Supplemental Oxygen General: Alert, Mild Distress. No: Oriented, Cooperative Lungs: Normal Respiratory Effort, Crackles (right lung base), Wheezing (rare left upper lung ) Cardiovascular: Regular Rate, Regular Rhythm GI/Abdominal Exam: Soft, No Distention Extremities: No Pedal Edema. No: Increased Warmth Skin: Warm, Dry Psy/Mental Status: Alert, Agitated - Problem List Review Problem List Initiated/Reviewed/Updated: Yes - My Orders Last 24 Hours: My Active Orders 01/15/19 08:23 Transfuse Red Blood Cells [COMM] Routine 01/15/19 08:57 Arterial Line Discontinue [OM.PC] Routine 01/15/19 17:00 Levofloxacin/Dextrose 5%-Water [Levaquin in D5W 750 MG/150 ML] 750 mg Premix Bag 1 bag IV Q24H 01/15/19 21:00 Melatonin 9 mg PO BEDTIME 01/16/19 01:13 Haloperidol Lactate [Haldol] 1 mg IVPUSH Q4H PRN 01/16/19 21:00 ClonazePAM [KlonoPIN] 0.5 mg PO BEDTIME lamoTRIgine 150 mg PO BID 01/17/19 05:00 BASIC METABOLIC PANEL,BMP [CHEM] Timed CBC W/O DIFF,HEMOGRAM [HEME] Timed (1) - Plan Plan:: ASSESSMENT / PLAN Bilateral pneumonia - initially felt to be fluid versus infection, but patchy infiltrates most consistent with pneumonia. Clinically improving and doing well since extubation. Still requiring supplemental oxygen. Cultures remain negative. -Blood and sputum cultures pending -continue levofloxacin started 01/15 -Discontinue Pip/Tazo Hypoxic respiratory failure - secondary to bilateral pulmonary infiltrates, stable since extubation 2 days ago but still requiring supplemental oxygen. -Management as above -Supplement oxygen Mixed type delirium - hypoactive yesterday but hyperactive overnight and again this morning. Somewhat agitated and confused. I suspect this is mostly toxic with medications the most likely contributors though there probably is some contribution from infection. Metabolically she looks pretty good. I would expect this should resolve over the next 24-48 hours. -Continue melatonin at bedtime -Continue antiepileptic medications -Restart smaller dose of clonazepam at bedtime -Haldol for severe agitation Anemia - no obvious blood in the stool. Hemoglobin much better today after transfusion yesterday. -Saline lock IV -Protonix 40 mg daily -Repeat hemoglobin level in the morning Seizure disorder - stable. -Continue lamotrigine with slight dose reduction Anxiety - stable so far. -continue home medications Hypertension -continue home medications Maintenance issues -Nutrition: Full liquids -Fernando catheter; catheter placed to monitor urine output, plan to remove once delirium has decreased a little bit further -DVT: Lovenox 40 mg subcutaneous daily -PPI; Protonix 40 mg daily Disposition - I would anticipate discharge to the residential after the hospital stay Primary care provider - Dr. Goddard, [place], [place]. Sammy Hanson MD
[2019-01-16] MEDS ORDERED: FLUOXETINE HCL 80 MG PO SCH (10:15)
[2019-01-16] MEDS: FLUOXETINE 40 MG PO SCH (10:23)
[2019-01-16] MEDS ORDERED: Furosemide 40 MG/4 ML VIAL IVPUSH ONE (15:26)
[2019-01-16] MEDS ORDERED: Furosemide 40 MG/4 ML VIAL ONE (15:31)
--- NOTE | 2019-01-16 16:15 | CRLCR ---
INDICATION: Cough. Hypoxia. COMPARISON: 01/14/2019. FINDINGS/IMPRESSION: Removal of previously seen endotracheal tube. Slight increase and faint bilateral perihilar and left upper lobe infiltrates. Question of trace left pleural effusion. Stable cardiac contour. No acute osseous findings. Dictated by Som Eden MD @ 01/16/2019 4:11:32 PM Dictated by: Som Eden MD @ 01/16/2019 16:12:42 (Electronically Signed)
[2019-01-16] MEDS: Enoxaparin 40 MG/0.4 ML Syringe SUBCUT SCH (16:28)
[2019-01-16] MEDS: Levofloxacin/Dextrose 5%-Water 750 MG in Premix Bag 1 BAG IV SCH (16:29)
[2019-01-16] MEDS: Albuterol 0.083% 2.5 MG/3 ML Neb Soln NEB PRN (19:40)
[2019-01-16] MEDS: Melatonin 3 MG Tab PO SCH (20:10)
[2019-01-16] MEDS: lamoTRIgine 25 MG Tab PO SCH (20:11)
[2019-01-16] MEDS: ClonazePAM 0.5 MG Tab PO SCH (20:14)
[2019-01-17] MEDS: Albuterol 0.083% 2.5 MG/3 ML Neb Soln NEB PRN (05:59)
--- NOTE | 2019-01-17 09:08 | PCM.PN ---
- General Info Date of Service: 01/17/19 Subjective Update: There were no acute events overnight. There have been no behavior issues. Patient does feel like she is breathing better after receiving a dose of Lasix yesterday. She continues to require supplemental oxygen at 2.5 L/m. She has a loose cough but has not had any fevers. Strength is slowly improving. Not much of an appetite. White blood cell count is slightly higher today. Functional Status: Reports: Pain Controlled, Tolerating Diet - Review of Systems General: Reports: Weakness Pulmonary: Reports: Cough - Patient Data Vitals - Most Recent: Last Vital Signs Temp 35.9 C 01/17/19 04:00 Pulse 84 01/17/19 08:00 Resp 23 H 01/17/19 08:00 BP 118/49 L 01/17/19 08:00 Pulse Ox 94 L 01/17/19 08:00 Weight - Most Recent: 48.336 kg I&O - Last 24 Hours: Intake & Output 01/16/19 01/17/19 01/17/19 22:59 06:59 14:59 Intake Total 1055 240 Output Total 1700 1000 Balance -645 -760 Lab Results Last 24 Hours: Laboratory Results - last 24 hr 01/17/19 01/17/19 Range/Units 05:00 05:00 WBC 17.5 H (4.5-11.0) K/uL RBC 4.08 (3.30-5.50) M/uL Hgb 11.1 L (12.0-15.0) g/dL Hct 33.7 L (36.0-48.0) % MCV 83 (80-98) fL MCH 27 (27-31) pg MCHC 33 (32-36) % Plt Count 651 H (150-400) K/uL Sodium 138 L (140-148) mmol/L Potassium 3.2 L (3.6-5.2) mmol/L Chloride 102 (100-108) mmol/L Carbon Dioxide 25 (21-32) mmol/L Anion Gap 14.2 H (5.0-14.0) mmol/L BUN 12 (7-18) mg/dL Creatinine 0.7 (0.6-1.0) mg/dL Est Cr Clr Drug Dosing 52.95 mL/min Estimated GFR (MDRD) > 60 (>60) Glucose 112 H (74-106) mg/dL Calcium 8.1 L (8.5-10.1) mg/dL Cecilio Results Last 24 Hours: Microbiology 01/12/19 13:28 Aerobic Blood Culture - Preliminary Blood - Arm, Right NO GROWTH AFTER 4 DAYS Anaerobic Blood Culture - Preliminary NO GROWTH AFTER 4 DAYS Med Orders - Current: Current Medications Acetaminophen (Tylenol) 650 mg PO Q4H PRN PRN Reason: Pain (Mild 1-3)/fever Last Admin: 01/11/19 20:20 Dose: 650 mg Albuterol (Proventil Neb Soln) 2.5 mg NEB Q4H PRN PRN Reason: Shortness Of Breath/wheezing Last Admin: 01/17/19 05:59 Dose: 2.5 mg Clonazepam (Klonopin) 0.5 mg PO BEDTIME [facility] Last Admin: 01/16/19 20:14 Dose: 0.5 mg Docusate Sodium (Colace) 100 mg PO BID PRN PRN Reason: Constipation Enoxaparin Sodium (Lovenox) 40 mg SUBCUT Q24H [facility] Last Admin: 01/16/19 16:28 Dose: 40 mg Haloperidol Lactate (Haldol) 1 mg IVPUSH Q4H PRN PRN Reason: Agitation Last Admin: 01/16/19 04:42 Dose: 1 mg Hydrochlorothiazide (Hydrochlorothiazide) 25 mg PO DAILY [facility] Last Admin: 01/16/19 10:24 Dose: 25 mg Hyoscyamine (Hyomax-Sl) 0.125 mg SL TID PRN PRN Reason: Nausea Levofloxacin/Dextrose 750 mg/ (Premix) 150 mls @ 100 mls/hr IV Q24H [facility] Last Admin: 01/16/19 16:29 Dose: 100 mls/hr Lactobacillus Rhamnosus (Culturelle) 1 cap PO BID [facility] Last Admin: 01/16/19 20:10 Dose: 1 cap Lamotrigine (Lamotrigine) 150 mg PO BID [facility] Last Admin: 01/16/19 20:11 Dose: 150 mg Melatonin (Melatonin) 9 mg PO BEDTIME [facility] Last Admin: 01/16/19 20:10 Dose: 9 mg Metoprolol Tartrate (Lopressor) 25 mg PO BID [facility] Last Admin: 01/16/19 20:11 Dose: 25 mg Ondansetron HCl (Zofran Odt) 4 mg PO Q6H PRN PRN Reason: Nausea able to take PO Ondansetron HCl (Zofran) 4 mg IV Q4H PRN PRN Reason: Nausea/Vomiting Oxycodone HCl (Oxycodone) 5 mg PO Q4H PRN PRN Reason: Pain Last Admin: 01/15/19 20:37 Dose: 5 mg Fluoxetine 40mg Cap ((Ptom)) 0 each PO DAILY [facility] Last Admin: 01/16/19 10:23 Dose: 2 each Verapamil HCl (Calan Sr) 240 mg PO DAILY [facility] Last Admin: 01/16/19 10:26 Dose: 240 mg Discontinued Medications Clonazepam (Klonopin) 1 mg PO BEDTIME [facility] Last Admin: 01/14/19 20:16 Dose: 1 mg Fluoxetine HCl (Prozac) 80 mg PO DAILY [facility] Last Admin: 01/11/19 11:00 Dose: 80 mg Fluoxetine HCl (Prozac) 80 mg PO DAILY [facility] Last Admin: 01/16/19 08:41 Dose: Not Given Furosemide (Lasix) 20 mg IVPUSH ONETIME ONE Stop: 01/12/19 12:31 Last Admin: 01/12/19 12:32 Dose: 20 mg Furosemide (Lasix) Confirm Administered Dose 20 mg .ROUTE .STK-MED ONE Stop: 01/12/19 12:30 Last Admin: 01/12/19 12:33 Dose: Not Given Furosemide (Lasix) 40 mg IVPUSH NOW ONE Stop: 01/12/19 15:37 Last Admin: 01/12/19 16:09 Dose: 40 mg Furosemide (Lasix) 40 mg IVPUSH NOW ONE Stop: 01/13/19 09:52 Last Admin: 01/13/19 11:30 Dose: 40 mg Furosemide (Lasix) 40 mg IVPUSH ONETIME ONE Stop: 01/16/19 15:27 Last Admin: 01/16/19 15:36 Dose: 40 mg Furosemide (Lasix) Confirm Administered Dose 40 mg .ROUTE .STK-MED ONE Stop: 01/16/19 15:32 Last Admin: 01/16/19 16:23 Dose: Not Given Hydromorphone HCl (Dilaudid) 0.5 mg IVPUSH ONETIME ONE Stop: 01/12/19 12:01 Last Admin: 01/12/19 12:00 Dose: 0.5 mg Sodium Chloride (Normal Saline) 1,000 mls @ 1,000 mls/hr IV ASDIRECTED [facility] Last Admin: 01/11/19 06:17 Dose: 1,000 mls/hr Sodium Chloride (Normal Saline) 1,000 mls @ 125 mls/hr IV ONETIME ONE Stop: 01/11/19 05:43 Last Admin: 01/10/19 21:45 Dose: 125 mls/hr Potassium Chloride 20 meq/Lidocaine HCl 2 ml/ Sodium Chloride 112 mls @ 50 mls/ hr IV Q2H [facility] Stop: 01/11/19 13:59 Last Admin: 01/11/19 17:25 Dose: 50 mls/hr Piperacillin/Tazobactam/ (Dextrose 3.375 gm/ Premix) 50 mls @ 100 mls/hr IV Q6H [facility] Last Admin: 01/16/19 08:24 Dose: 100 mls/hr Vancomycin HCl 1 gm/ Sodium (Chloride) 250 mls @ 167 mls/hr IV Q24H [facility] Last Admin: 01/12/19 14:05 Dose: 167 mls/hr Heparin Sodium (Porcine) 5,000 (units/ Sodium Chloride) 501 mls @ 0 mls/hr IV ASDIRECTED [facility] Propofol (Diprivan 100 Ml) 100 mls @ 1.45 mls/hr IV TITRATE [facility]; Protocol Last Titration: 01/14/19 11:15 Dose: 0 mcg/kg/min, 0 mls/hr Potassium Chloride 40 meq/ (Premix) 100 mls @ 25 mls/hr IV ONETIME ONE Stop: 01/12/19 19:29 Last Admin: 01/12/19 15:53 Dose: 25 mls/hr Magnesium Sulfate 2 gm/ Premix 50 mls @ 25 mls/hr IV Q6H [facility] Stop: 01/13/19 16:59 Last Admin: 01/13/19 14:55 Dose: 25 mls/hr Potassium Chloride 40 meq/ (Premix) 100 mls @ 25 mls/hr IV ONETIME ONE Stop: 01/13/19 12:59 Last Admin: 01/13/19 08:52 Dose: 25 mls/hr Doxycycline Hyclate 100 mg/ (Sodium Chloride) 100 mls @ 100 mls/hr IV Q12H [facility] Last Admin: 01/15/19 14:52 Dose: 100 mls/hr Sodium Chloride (Normal Saline) 1,000 mls @ 125 mls/hr IV ASDIRECTED [facility] Sodium Chloride (Normal Saline) 1,000 mls @ 0 mls/hr IV ASDIRECTED [facility] Last Admin: 01/16/19 04:18 Dose: 25 mls/hr Potassium Chloride 20 meq/Lidocaine HCl 2 ml/ Sodium Chloride 112 mls @ 56 mls/ hr IV Q2H [facility] Stop: 01/14/19 13:59 Last Admin: 01/14/19 12:08 Dose: 56 mls/hr Potassium Chloride 20 meq/Lidocaine HCl 2 ml/ Sodium Chloride 112 mls @ 56 mls/ hr IV Q2H [facility] Stop: 01/15/19 13:59 Last Admin: 01/15/19 12:53 Dose: 56 mls/hr Sodium Chloride (Normal Saline) 76 mls @ 3 mls/sec IV ASDIRECTED [facility] Stop: 01/15/19 14:16 Last Admin: 01/15/19 14:32 Dose: 3 mls/sec Influenza Virus Vaccine (Pharmacy To Dose - Influenza Vaccine) 1 each IM ONETIME ONE Stop: 01/12/19 11:01 Influenza Virus Vaccine (Fluzone High-Dose Syringe) 180 mcg IM .ONCE ONE Stop: 01/12/19 09:01 Last Admin: 01/12/19 08:47 Dose: Not Given Iopamidol (Isovue-300 (61%)) 100 ml IV . DIRECTED PRN PRN Reason: RADIOLOGY EXAM Stop: 01/16/19 14:02 Last Admin: 01/15/19 14:33 Dose: 100 ml Lamotrigine (Lamotrigine) 100 mg PO BID [facility] Last Admin: 01/13/19 17:10 Dose: Not Given Lamotrigine (Lamotrigine) 75 mg PO BID [facility] Last Admin: 01/13/19 17:10 Dose: Not Given Lamotrigine (Lamotrigine) 75 mg .XX BID [facility] Last Admin: 01/14/19 10:06 Dose: 75 mg Lamotrigine (Lamotrigine) 100 mg .XX BID [facility] Last Admin: 01/14/19 10:20 Dose: 100 mg Lamotrigine (Lamotrigine) 75 mg PO BID [facility] Last Admin: 01/15/19 08:15 Dose: 75 mg Lamotrigine (Lamotrigine) 100 mg PO BID [facility] Last Admin: 01/15/19 08:16 Dose: 100 mg Lorazepam (Ativan) 0.5 mg IVPUSH ONETIME ONE Stop: 01/10/19 20:20 Last Admin: 01/10/19 20:45 Dose: 0.5 mg Lorazepam (Ativan) 1 mg IV Q4H PRN PRN Reason: Anxiety Last Admin: 01/12/19 20:07 Dose: 1 mg Lorazepam (Ativan) 0.5 mg IVPUSH ONETIME ONE Stop: 01/12/19 13:37 Last Admin: 01/12/19 13:40 Dose: 0.5 mg Lorazepam (Ativan) 0.5 mg IV Q2H PRN PRN Reason: Anxiety Last Admin: 01/14/19 14:22 Dose: 0.5 mg Lorazepam (Ativan) 0.5 - 1 mg IV Q2H PRN PRN Reason: Anxiety Last Admin: 01/14/19 18:08 Dose: 1 mg Naloxone HCl (Narcan) 0.1 mg IVPUSH ASDIRECTED PRN PRN Reason: Sedation Last Admin: 01/12/19 12:25 Dose: 0.1 mg Non-Formulary Medication (Lamotrigine [Lamictal]) 175 mg PO BID [facility] Last Admin: 01/11/19 01:26 Dose: Not Given Pantoprazole Sodium (Protonix Iv) 40 mg IV BID [facility] Last Admin: 01/11/19 11:01 Dose: 40 mg Pantoprazole Sodium (Protonix) 40 mg PO DAILY@0730 [facility] Last Admin: 01/12/19 08:45 Dose: 40 mg Pantoprazole Sodium (Protonix Iv) 40 mg IVPUSH Q24H [facility] Last Admin: 01/13/19 16:07 Dose: 40 mg Potassium Chloride (Klor-Con M20) 40 meq PO ONETIME ONE Stop: 01/16/19 08:46 Last Admin: 01/16/19 10:26 Dose: 40 meq Propofol (Diprivan 20 Ml) Confirm Administered Dose 200 mg .ROUTE .STK-MED ONE Stop: 01/11/19 09:35 Propofol (Diprivan 20 Ml) 200 mg .ROUTE .STK-MED ONE Stop: 01/12/19 14:01 Vancomycin HCl (Vancomycin) 1 gm IV .PHARMACY TO DOSE [facility] Stop: 01/12/19 14:01 - Exam Quality Assessment: Supplemental Oxygen General: Alert, Oriented, Cooperative, No Acute Distress Neck: Supple, JVD Lungs: Normal Respiratory Effort, Crackles (upper lung smith anteriorly ). No : Rhonchi, Wheezing Cardiovascular: Regular Rate, Regular Rhythm, Murmurs GI/Abdominal Exam: Soft, No Distention Skin: Warm, Dry Psy/Mental Status: Alert, Normal Affect - Problem List Review Problem List Initiated/Reviewed/Updated: Yes - My Orders Last 24 Hours: My Active Orders 01/16/19 10:30 Patient's Own Medication [Ptom] 0 each PO DAILY 01/16/19 13:31 Daily Weight [Height and Weight] [RC] DAILY 01/16/19 21:00 ClonazePAM [KlonoPIN] 0.5 mg PO BEDTIME lamoTRIgine 150 mg PO BID 01/17/19 09:02 RT Aerosol Therapy [RC] ASDIRECTED 01/17/19 09:03 Furosemide [Lasix] 40 mg IVPUSH ONETIME ONE Convert IV to Saline Lock [OM.PC] Routine 01/17/19 09:04 CULTURE RESPIRATORY + SMEAR [RM] Routine 01/17/19 09:05 Transfer Patient (Change bed) [ADT] Routine 01/17/19 09:07 Dietary Supplements [RC] TIDMEALS 01/17/19 09:15 Potassium Chloride [Klor-Con M20] 40 meq PO BID 01/17/19 11:00 Albuterol/Ipratropium [DuoNeb 3.0-0.5 MG/3 ML] 3 ml NEB QIDRT 01/17/19 Lunch Mechanical Soft Diet [DIET] 01/18/19 05:00 CBC W/O DIFF,HEMOGRAM [HEME] Timed (1) COMPREHENSIVE METABOLIC PN,CMP [CHEM] Timed MAGNESIUM [CHEM] Timed - Plan Plan:: ASSESSMENT / PLAN Bilateral pneumonia - initially felt to be fluid versus infection, but patchy infiltrates most consistent with pneumonia. Slowly improving from a respiratory standpoint. Her seems to be a small component of fluid at this time. -Blood and sputum cultures pending -continue levofloxacin started 01/15 -Furosemide 1 again this morning Hypoxic respiratory failure - secondary to bilateral pulmonary infiltrates, stable since extubation but still requiring supplemental oxygen. -Management as above -Supplement oxygen Mixed type delirium - hypoactive yesterday but hyperactive overnight and again this morning. She has cleared significantly in the past 24 hours. -Continue melatonin at bedtime -Continue antiepileptic medications -Continue smaller dose of clonazepam at bedtime -Haldol for severe agitation Anemia - no obvious blood in the stool. Hemoglobin stable. -Saline lock IV -Protonix 40 mg daily -Repeat hemoglobin level in the morning Seizure disorder - stable. -Continue lamotrigine with slight dose reduction Anxiety - stable so far. -continue home medications Hypertension -continue home medications Maintenance issues -Nutrition: Mechanical soft -Fernando catheter; catheter placed to monitor urine output, plan to remove this afternoon -DVT: Lovenox 40 mg subcutaneous daily -PPI; Protonix 40 mg daily Disposition - I would anticipate discharge to the detention after the hospital stay Primary care provider - Dr. Goddard, [place], [place]. Sammy Hanson MD
[2019-01-17] MEDS: lamoTRIgine 25 MG Tab PO SCH ×2 (09:40→21:47)
[2019-01-17] MEDS: Lactobacillus Rhamnosus GG (Probiotic) Cap PO SCH ×2 (09:58→21:46)
[2019-01-17] MEDS: Verapamil 120 MG Tab.ER PO SCH (09:58)
[2019-01-17] MEDS: Metoprolol Tartrate 25 MG Tab PO SCH ×2 (09:59→21:49)
[2019-01-17] MEDS: FLUOXETINE 40 MG PO SCH (10:00)
[2019-01-17] MEDS: Hydrochlorothiazide 25 MG Tab PO SCH (10:00)
[2019-01-17] MEDS ORDERED: Furosemide 40 MG/4 ML VIAL IVPUSH ONE (10:00)
[2019-01-17] MEDS: Potassium Chloride 20 MEQ Tab.ER PO SCH ×2 (10:14→21:47)
[2019-01-17] MEDS: Albuterol/Ipratropium 3.0-0.5 MG/3 ML Neb Soln NEB SCH ×3 (10:46→21:33)
[2019-01-17] MEDS: Acetaminophen 325 MG Tab PO PRN ×2 (16:43→23:29)
[2019-01-17] MEDS: Nystatin Susp 100,000 Unit/ML 5 ML UD Cup PO SCH ×2 (16:47→22:00)
[2019-01-17] MEDS: Enoxaparin 40 MG/0.4 ML Syringe SUBCUT SCH (16:49)
[2019-01-17] MEDS: Levofloxacin/Dextrose 5%-Water 750 MG in Premix Bag 1 BAG IV SCH (16:52)
[2019-01-17] MEDS: ClonazePAM 0.5 MG Tab PO SCH (21:47)
[2019-01-17] MEDS: Melatonin 3 MG Tab PO SCH (21:48)
[2019-01-18] MEDS: Nystatin Susp 100,000 Unit/ML 5 ML UD Cup PO SCH ×4 (06:36→21:29)
[2019-01-18] MEDS: Albuterol/Ipratropium 3.0-0.5 MG/3 ML Neb Soln NEB SCH ×4 (07:17→21:30)
[2019-01-18] MEDS: Verapamil 120 MG Tab.ER PO SCH (08:25)
[2019-01-18] MEDS: Hydrochlorothiazide 25 MG Tab PO SCH (08:27)
[2019-01-18] MEDS: Lactobacillus Rhamnosus GG (Probiotic) Cap PO SCH ×2 (08:27→21:29)
[2019-01-18] MEDS: Metoprolol Tartrate 25 MG Tab PO SCH ×2 (08:28→21:30)
[2019-01-18] MEDS: lamoTRIgine 25 MG Tab PO SCH ×2 (08:28→21:30)
[2019-01-18] MEDS: FLUOXETINE 40 MG PO SCH (08:29)
[2019-01-18] MEDS ORDERED: Potassium Chloride 20 MEQ Tab.ER PO ONE (10:30)
[2019-01-18] MEDS: Magnesium Sulfate/Water 2 GM in Premix Bag 1 BAG IV SCH ×2 (10:31→16:14)
--- NOTE | 2019-01-18 11:47 | PCM.PN ---
- General Info Date of Service: 01/18/19 Subjective Update: There were no acute events overnight. Patient was stable after transfer out of the intensive care unit. She does not report shortness of breath today but hasn' t increased cough with some sputum production. She has not had any fevers. Oxygen requirement is slightly less today but has not resolved. No fevers. No abdominal pain. Not much of an appetite tolerating dietary supplements. She requires the assist of 2 to get into and out of bed. Functional Status: Reports: Pain Controlled, Tolerating Diet - Review of Systems General: Reports: Weakness Pulmonary: Reports: Cough - Patient Data Vitals - Most Recent: Last Vital Signs Temp 35.7 C 01/18/19 10:54 Pulse 78 01/18/19 10:54 Resp 16 01/18/19 10:54 BP 115/57 L 01/18/19 10:54 Pulse Ox 92 L 01/18/19 10:54 Weight - Most Recent: 48.336 kg I&O - Last 24 Hours: Intake & Output 01/17/19 01/18/19 01/18/19 22:59 06:59 14:59 Intake Total 390 Output Total 1050 0 Balance -660 0 Lab Results Last 24 Hours: Laboratory Results - last 24 hr 01/18/19 01/18/19 Range/Units 04:47 04:47 WBC 15.7 H (4.5-11.0) K/uL RBC 4.29 (3.30-5.50) M/uL Hgb 11.3 L (12.0-15.0) g/dL Hct 35.2 L (36.0-48.0) % MCV 82 (80-98) fL MCH 26 L (27-31) pg MCHC 32 (32-36) % Plt Count 708 H (150-400) K/uL Sodium 137 L (140-148) mmol/L Potassium 3.6 (3.6-5.2) mmol/L Chloride 100 (100-108) mmol/L Carbon Dioxide 26 (21-32) mmol/L Anion Gap 14.6 H (5.0-14.0) mmol/L BUN 16 (7-18) mg/dL Creatinine 0.8 (0.6-1.0) mg/dL Est Cr Clr Drug Dosing 46.33 mL/min Estimated GFR (MDRD) > 60 (>60) Glucose 106 (74-106) mg/dL Calcium 8.2 L (8.5-10.1) mg/dL Magnesium 1.6 L D (1.8-2.4) mg/dL Total Bilirubin 0.4 (0.2-1.0) mg/dL AST 35 (15-37) U/L ALT 14 (12-78) U/L Alkaline Phosphatase 209 H (46-116) U/L Total Protein 6.9 (6.4-8.2) g/dL Albumin 1.8 L (3.4-5.0) g/dL Globulin 5.1 H (2.3-3.5) g/dL Albumin/Globulin Ratio 0.4 L (1.2-2.2) Cecilio Results Last 24 Hours: Microbiology 01/17/19 09:10 Gram Stain - Final Sputum - Expectorated Respiratory Culture - Preliminary 01/12/19 13:28 Aerobic Blood Culture - Final Blood - Arm, Right NO GROWTH AFTER 5 DAYS Anaerobic Blood Culture - Final NO GROWTH AFTER 5 DAYS 01/12/19 Unknown Aerobic Blood Culture - Final Blood - Venous NO GROWTH AFTER 5 DAYS Anaerobic Blood Culture - Final NO GROWTH AFTER 5 DAYS Med Orders - Current: Current Medications Acetaminophen (Tylenol) 650 mg PO Q4H PRN PRN Reason: Pain (Mild 1-3)/fever Last Admin: 01/17/19 23:29 Dose: 650 mg Albuterol (Proventil Neb Soln) 2.5 mg NEB Q4H PRN PRN Reason: Shortness Of Breath/wheezing Last Admin: 01/17/19 05:59 Dose: 2.5 mg Albuterol/Ipratropium (Duoneb 3.0-0.5 Mg/3 Ml) 3 ml NEB QIDRT [facility] Last Admin: 01/18/19 10:42 Dose: 3 ml Clonazepam (Klonopin) 0.5 mg PO BEDTIME [facility] Last Admin: 01/17/19 21:47 Dose: 0.5 mg Docusate Sodium (Colace) 100 mg PO BID PRN PRN Reason: Constipation Enoxaparin Sodium (Lovenox) 40 mg SUBCUT Q24H [facility] Last Admin: 01/17/19 16:49 Dose: 40 mg Hydrochlorothiazide (Hydrochlorothiazide) 25 mg PO DAILY [facility] Last Admin: 01/18/19 08:27 Dose: 25 mg Hyoscyamine (Hyomax-Sl) 0.125 mg SL TID PRN PRN Reason: Nausea Magnesium Sulfate 2 gm/ Premix 50 mls @ 12.5 mls/hr IV Q6H [facility] Stop: 01/18/19 19:59 Last Admin: 01/18/19 10:31 Dose: 12.5 mls/hr Lactobacillus Rhamnosus (Culturelle) 1 cap PO BID [facility] Last Admin: 01/18/19 08:27 Dose: 1 cap Lamotrigine (Lamotrigine) 150 mg PO BID [facility] Last Admin: 01/18/19 08:28 Dose: 150 mg Melatonin (Melatonin) 9 mg PO BEDTIME [facility] Last Admin: 01/17/19 21:48 Dose: 9 mg Metoprolol Tartrate (Lopressor) 25 mg PO BID [facility] Last Admin: 01/18/19 08:28 Dose: 25 mg Nystatin (Mycostatin) 5 ml PO QID [facility] Last Admin: 01/18/19 09:36 Dose: 5 ml Ondansetron HCl (Zofran Odt) 4 mg PO Q6H PRN PRN Reason: Nausea able to take PO Ondansetron HCl (Zofran) 4 mg IV Q4H PRN PRN Reason: Nausea/Vomiting Oxycodone HCl (Oxycodone) 5 mg PO Q4H PRN PRN Reason: Pain Last Admin: 01/15/19 20:37 Dose: 5 mg Fluoxetine 40mg Cap ((Ptom)) 0 each PO DAILY [facility] Last Admin: 01/18/19 08:29 Dose: 1 each Verapamil HCl (Calan Sr) 240 mg PO DAILY [facility] Last Admin: 01/18/19 08:25 Dose: 240 mg Discontinued Medications Clonazepam (Klonopin) 1 mg PO BEDTIME [facility] Last Admin: 01/14/19 20:16 Dose: 1 mg Fluoxetine HCl (Prozac) 80 mg PO DAILY [facility] Last Admin: 01/11/19 11:00 Dose: 80 mg Fluoxetine HCl (Prozac) 80 mg PO DAILY [facility] Last Admin: 01/16/19 08:41 Dose: Not Given Furosemide (Lasix) 20 mg IVPUSH ONETIME ONE Stop: 01/12/19 12:31 Last Admin: 01/12/19 12:32 Dose: 20 mg Furosemide (Lasix) Confirm Administered Dose 20 mg .ROUTE .STK-MED ONE Stop: 01/12/19 12:30 Last Admin: 01/12/19 12:33 Dose: Not Given Furosemide (Lasix) 40 mg IVPUSH NOW ONE Stop: 01/12/19 15:37 Last Admin: 01/12/19 16:09 Dose: 40 mg Furosemide (Lasix) 40 mg IVPUSH NOW ONE Stop: 01/13/19 09:52 Last Admin: 01/13/19 11:30 Dose: 40 mg Furosemide (Lasix) 40 mg IVPUSH ONETIME ONE Stop: 01/16/19 15:27 Last Admin: 01/16/19 15:36 Dose: 40 mg Furosemide (Lasix) Confirm Administered Dose 40 mg .ROUTE .STK-MED ONE Stop: 01/16/19 15:32 Last Admin: 01/16/19 16:23 Dose: Not Given Furosemide (Lasix) 40 mg IVPUSH ONETIME ONE Stop: 01/17/19 10:01 Last Admin: 01/17/19 10:15 Dose: 40 mg Haloperidol Lactate (Haldol) 1 mg IVPUSH Q4H PRN PRN Reason: Agitation Last Admin: 01/16/19 04:42 Dose: 1 mg Hydromorphone HCl (Dilaudid) 0.5 mg IVPUSH ONETIME ONE Stop: 01/12/19 12:01 Last Admin: 01/12/19 12:00 Dose: 0.5 mg Sodium Chloride (Normal Saline) 1,000 mls @ 1,000 mls/hr IV ASDIRECTED [facility] Last Admin: 01/11/19 06:17 Dose: 1,000 mls/hr Sodium Chloride (Normal Saline) 1,000 mls @ 125 mls/hr IV ONETIME ONE Stop: 01/11/19 05:43 Last Admin: 01/10/19 21:45 Dose: 125 mls/hr Potassium Chloride 20 meq/Lidocaine HCl 2 ml/ Sodium Chloride 112 mls @ 50 mls/ hr IV Q2H [facility] Stop: 01/11/19 13:59 Last Admin: 01/11/19 17:25 Dose: 50 mls/hr Piperacillin/Tazobactam/ (Dextrose 3.375 gm/ Premix) 50 mls @ 100 mls/hr IV Q6H [facility] Last Admin: 01/16/19 08:24 Dose: 100 mls/hr Vancomycin HCl 1 gm/ Sodium (Chloride) 250 mls @ 167 mls/hr IV Q24H [facility] Last Admin: 01/12/19 14:05 Dose: 167 mls/hr Heparin Sodium (Porcine) 5,000 (units/ Sodium Chloride) 501 mls @ 0 mls/hr IV ASDIRECTED [facility] Propofol (Diprivan 100 Ml) 100 mls @ 1.45 mls/hr IV TITRATE [facility]; Protocol Last Titration: 01/14/19 11:15 Dose: 0 mcg/kg/min, 0 mls/hr Potassium Chloride 40 meq/ (Premix) 100 mls @ 25 mls/hr IV ONETIME ONE Stop: 01/12/19 19:29 Last Admin: 01/12/19 15:53 Dose: 25 mls/hr Magnesium Sulfate 2 gm/ Premix 50 mls @ 25 mls/hr IV Q6H [facility] Stop: 01/13/19 16:59 Last Admin: 01/13/19 14:55 Dose: 25 mls/hr Potassium Chloride 40 meq/ (Premix) 100 mls @ 25 mls/hr IV ONETIME ONE Stop: 01/13/19 12:59 Last Admin: 01/13/19 08:52 Dose: 25 mls/hr Doxycycline Hyclate 100 mg/ (Sodium Chloride) 100 mls @ 100 mls/hr IV Q12H [facility] Last Admin: 01/15/19 14:52 Dose: 100 mls/hr Sodium Chloride (Normal Saline) 1,000 mls @ 125 mls/hr IV ASDIRECTED [facility] Sodium Chloride (Normal Saline) 1,000 mls @ 0 mls/hr IV ASDIRECTED [facility] Last Admin: 01/16/19 04:18 Dose: 25 mls/hr Potassium Chloride 20 meq/Lidocaine HCl 2 ml/ Sodium Chloride 112 mls @ 56 mls/ hr IV Q2H [facility] Stop: 01/14/19 13:59 Last Admin: 01/14/19 12:08 Dose: 56 mls/hr Potassium Chloride 20 meq/Lidocaine HCl 2 ml/ Sodium Chloride 112 mls @ 56 mls/ hr IV Q2H [facility] Stop: 01/15/19 13:59 Last Admin: 01/15/19 12:53 Dose: 56 mls/hr Sodium Chloride (Normal Saline) 76 mls @ 3 mls/sec IV ASDIRECTED [facility] Stop: 01/15/19 14:16 Last Admin: 01/15/19 14:32 Dose: 3 mls/sec Levofloxacin/Dextrose 750 mg/ (Premix) 150 mls @ 100 mls/hr IV Q24H [facility] Last Admin: 01/17/19 16:52 Dose: 100 mls/hr Influenza Virus Vaccine (Pharmacy To Dose - Influenza Vaccine) 1 each IM ONETIME ONE Stop: 01/12/19 11:01 Influenza Virus Vaccine (Fluzone High-Dose Syringe) 180 mcg IM .ONCE ONE Stop: 01/12/19 09:01 Last Admin: 01/12/19 08:47 Dose: Not Given Iopamidol (Isovue-300 (61%)) 100 ml IV . DIRECTED PRN PRN Reason: RADIOLOGY EXAM Stop: 01/16/19 14:02 Last Admin: 01/15/19 14:33 Dose: 100 ml Lamotrigine (Lamotrigine) 100 mg PO BID [facility] Last Admin: 01/13/19 17:10 Dose: Not Given Lamotrigine (Lamotrigine) 75 mg PO BID [facility] Last Admin: 01/13/19 17:10 Dose: Not Given Lamotrigine (Lamotrigine) 75 mg .XX BID [facility] Last Admin: 01/14/19 10:06 Dose: 75 mg Lamotrigine (Lamotrigine) 100 mg .XX BID [facility] Last Admin: 01/14/19 10:20 Dose: 100 mg Lamotrigine (Lamotrigine) 75 mg PO BID [facility] Last Admin: 01/15/19 08:15 Dose: 75 mg Lamotrigine (Lamotrigine) 100 mg PO BID [facility] Last Admin: 01/15/19 08:16 Dose: 100 mg Lorazepam (Ativan) 0.5 mg IVPUSH ONETIME ONE Stop: 01/10/19 20:20 Last Admin: 01/10/19 20:45 Dose: 0.5 mg Lorazepam (Ativan) 1 mg IV Q4H PRN PRN Reason: Anxiety Last Admin: 01/12/19 20:07 Dose: 1 mg Lorazepam (Ativan) 0.5 mg IVPUSH ONETIME ONE Stop: 01/12/19 13:37 Last Admin: 01/12/19 13:40 Dose: 0.5 mg Lorazepam (Ativan) 0.5 mg IV Q2H PRN PRN Reason: Anxiety Last Admin: 01/14/19 14:22 Dose: 0.5 mg Lorazepam (Ativan) 0.5 - 1 mg IV Q2H PRN PRN Reason: Anxiety Last Admin: 01/14/19 18:08 Dose: 1 mg Naloxone HCl (Narcan) 0.1 mg IVPUSH ASDIRECTED PRN PRN Reason: Sedation Last Admin: 01/12/19 12:25 Dose: 0.1 mg Non-Formulary Medication (Lamotrigine [Lamictal]) 175 mg PO BID [facility] Last Admin: 01/11/19 01:26 Dose: Not Given Pantoprazole Sodium (Protonix Iv) 40 mg IV BID [facility] Last Admin: 01/11/19 11:01 Dose: 40 mg Pantoprazole Sodium (Protonix) 40 mg PO DAILY@0730 [facility] Last Admin: 01/12/19 08:45 Dose: 40 mg Pantoprazole Sodium (Protonix Iv) 40 mg IVPUSH Q24H [facility] Last Admin: 01/13/19 16:07 Dose: 40 mg Potassium Chloride (Klor-Con M20) 40 meq PO ONETIME ONE Stop: 01/16/19 08:46 Last Admin: 01/16/19 10:26 Dose: 40 meq Potassium Chloride (Klor-Con M20) 40 meq PO BID [facility] Stop: 01/17/19 21:01 Last Admin: 01/17/19 21:47 Dose: 40 meq Potassium Chloride (Klor-Con M20) 40 meq PO ONETIME ONE Stop: 01/18/19 10:31 Last Admin: 01/18/19 10:14 Dose: 40 meq Propofol (Diprivan 20 Ml) Confirm Administered Dose 200 mg .ROUTE .STK-MED ONE Stop: 01/11/19 09:35 Propofol (Diprivan 20 Ml) 200 mg .ROUTE .STK-MED ONE Stop: 01/12/19 14:01 Vancomycin HCl (Vancomycin) 1 gm IV .PHARMACY TO DOSE [facility] Stop: 01/12/19 14:01 - Exam Quality Assessment: Supplemental Oxygen General: Alert, Oriented, Cooperative, No Acute Distress Lungs: Normal Respiratory Effort, Crackles (right lung base) Cardiovascular: Regular Rate, Regular Rhythm GI/Abdominal Exam: Soft, No Distention Extremities: No Pedal Edema. No: Increased Warmth Skin: Warm, Dry Psy/Mental Status: Alert, Normal Affect - Problem List Review Problem List Initiated/Reviewed/Updated: Yes - My Orders Last 24 Hours: My Active Orders 01/17/19 11:00 Albuterol/Ipratropium [DuoNeb 3.0-0.5 MG/3 ML] 3 ml NEB QIDRT 01/17/19 16:30 Nystatin [Mycostatin] 5 ml PO QID 01/17/19 Lunch Mechanical Soft Diet [DIET] 01/18/19 10:00 Magnesium Sulfate/Water [Magnesium Sulfate 2 GM in Water 50 ML] 2 gm Premix Bag 1 bag IV Q6H 01/18/19 11:45 RT Acapella [RESPCARE] Routine 01/18/19 17:00 levoFLOXacin [Levaquin] 250 mg PO Q24H levoFLOXacin [Levaquin] 500 mg PO Q24H 01/19/19 05:00 BASIC METABOLIC PANEL,BMP [CHEM] Timed CBC W/O DIFF,HEMOGRAM [HEME] Timed (1) FERRITIN [CHEM] Timed IRON/TIBC [CHEM] Timed - Plan Plan:: ASSESSMENT / PLAN Bilateral pneumonia - initially felt to be fluid versus infection, but patchy infiltrates most consistent with pneumonia. Slowly improving from a respiratory standpoint. Sputum culture did grow yeast but she also has thrush and I suspect that this is where the yeast came from as she is otherwise clinically improving. -Blood and sputum cultures pending -continue levofloxacin started 01/15 -Reassess volume status daily Hypoxic respiratory failure - slowly improving but still requiring oxygen. -Management as above -Supplement oxygen Mixed type delirium - back to baseline at this time. -Continue melatonin at bedtime -Continue antiepileptic medications -Continue smaller dose of clonazepam at bedtime Anemia - no obvious blood in the stool. Hemoglobin stable and now back over 11. -Saline lock IV -Protonix 40 mg daily -Repeat hemoglobin level in the morning Seizure disorder - stable. -Continue lamotrigine with slight dose reduction Anxiety - stable so far. -continue home medications Hypertension -continue home medications Maintenance issues -Nutrition - Mechanical soft -Fernando catheter - removed -DVT - Lovenox 40 mg subcutaneous daily -GI - Protonix 40 mg daily Disposition - I would anticipate discharge to the halfway after the hospital stay though home with home health care is a possibility Primary care provider - Dr. Goddard, [facility] [place]. Sammy Hanson MD
[2019-01-18] MEDS: Enoxaparin 40 MG/0.4 ML Syringe SUBCUT SCH (16:14)
[2019-01-18] MEDS: Levofloxacin 250 MG Tab PO SCH (16:16)
[2019-01-18] MEDS: Levofloxacin 500 MG Tab PO SCH (16:16)
[2019-01-18] MEDS: Melatonin 3 MG Tab PO SCH (21:29)
[2019-01-18] MEDS: ClonazePAM 0.5 MG Tab PO SCH (21:29)
[2019-01-19] MEDS: Acetaminophen 325 MG Tab PO PRN (03:29)
[2019-01-19] MEDS: Albuterol 0.083% 2.5 MG/3 ML Neb Soln NEB PRN (03:30)
[2019-01-19] MEDS: Nystatin Susp 100,000 Unit/ML 5 ML UD Cup PO SCH ×4 (05:49→21:02)
[2019-01-19] MEDS: Albuterol/Ipratropium 3.0-0.5 MG/3 ML Neb Soln NEB SCH ×4 (07:22→20:30)
[2019-01-19] MEDS: Verapamil 120 MG Tab.ER PO SCH (09:00)
[2019-01-19] MEDS ORDERED: Potassium Chloride 20 MEQ Tab.ER PO ONE (09:15)
[2019-01-19] MEDS: Lactobacillus Rhamnosus GG (Probiotic) Cap PO SCH ×2 (09:15→20:30)
[2019-01-19] MEDS: Hydrochlorothiazide 25 MG Tab PO SCH (09:16)
[2019-01-19] MEDS: Metoprolol Tartrate 25 MG Tab PO SCH ×2 (09:18→20:31)
[2019-01-19] MEDS: FLUOXETINE 40 MG PO SCH (09:19)
[2019-01-19] MEDS: lamoTRIgine 25 MG Tab PO SCH (09:19)
[2019-01-19] MEDS: lamoTRIgine 100 MG, lamoTRIgine 50 MG PO SCH ×4 (10:34→20:30)
[2019-01-19] MEDS ORDERED: Sodium Ferric Gluconate Cmplex 125 MG in Sodium Chloride 0.9% 100 ML IV ONE (11:15)
--- NOTE | 2019-01-19 11:49 | PCM.PN ---
- General Info Date of Service: 01/19/19 Subjective Update: No acute events. Shortness of breath slowly improving. No fevers. Still has productive cough. Slept well last night. WBC trending down. No abdominal pain or nausea. Still weak but slowly getting stronger. Functional Status: Reports: Pain Controlled, Tolerating Diet - Review of Systems General: Reports: Weakness Pulmonary: Reports: Shortness of Breath - Patient Data Vitals - Most Recent: Last Vital Signs Temp 35.7 C 01/19/19 11:24 Pulse 81 01/19/19 11:24 Resp 18 01/19/19 11:24 BP 129/51 L 01/19/19 11:24 Pulse Ox 95 01/19/19 11:24 Weight - Most Recent: 46.72 kg I&O - Last 24 Hours: Intake & Output 01/18/19 01/19/19 01/19/19 22:59 06:59 14:59 Intake Total 356 Output Total 200 Balance 156 Lab Results Last 24 Hours: Laboratory Results - last 24 hr 01/19/19 01/19/19 01/19/19 Range/Units 05:17 05:17 05:17 WBC 11.4 H (4.5-11.0) K/uL RBC 3.88 (3.30-5.50) M/uL Hgb 10.2 L (12.0-15.0) g/dL Hct 32.1 L (36.0-48.0) % MCV 83 (80-98) fL MCH 26 L (27-31) pg MCHC 32 (32-36) % Plt Count 539 H (150-400) K/uL Sodium 134 L (140-148) mmol/L Potassium 3.5 L (3.6-5.2) mmol/L Chloride 100 (100-108) mmol/L Carbon Dioxide 24 (21-32) mmol/L Anion Gap 13.5 (5.0-14.0) mmol/L BUN 15 (7-18) mg/dL Creatinine 0.7 (0.6-1.0) mg/dL Est Cr Clr Drug Dosing 52.95 mL/min Estimated GFR (MDRD) > 60 (>60) Glucose 109 H (74-106) mg/dL Calcium 8.3 L (8.5-10.1) mg/dL Iron 14 L (50-170) ug/dL TIBC 129 L (250-450) ug/dl % Saturation 11 L (20-55) % Ferritin 270 (8-388) ng/ml Cecilio Results Last 24 Hours: Microbiology 01/17/19 09:10 Gram Stain - Final Sputum - Expectorated Respiratory Culture - Final Yeast Med Orders - Current: Current Medications Acetaminophen (Tylenol) 650 mg PO Q4H PRN PRN Reason: Pain (Mild 1-3)/fever Last Admin: 01/19/19 03:29 Dose: 650 mg Albuterol (Proventil Neb Soln) 2.5 mg NEB Q4H PRN PRN Reason: Shortness Of Breath/wheezing Last Admin: 01/19/19 03:30 Dose: 2.5 mg Albuterol/Ipratropium (Duoneb 3.0-0.5 Mg/3 Ml) 3 ml NEB QIDRT [facility] Last Admin: 01/19/19 11:13 Dose: 3 ml Clonazepam (Klonopin) 0.5 mg PO BEDTIME [facility] Last Admin: 01/18/19 21:29 Dose: 0.5 mg Docusate Sodium (Colace) 100 mg PO BID PRN PRN Reason: Constipation Enoxaparin Sodium (Lovenox) 40 mg SUBCUT Q24H [facility] Last Admin: 01/18/19 16:14 Dose: 40 mg Hydrochlorothiazide (Hydrochlorothiazide) 25 mg PO DAILY [facility] Last Admin: 01/19/19 09:16 Dose: 25 mg Hyoscyamine (Hyomax-Sl) 0.125 mg SL TID PRN PRN Reason: Nausea Ferric Sodium Gluconate Complex 125 mg/ Sodium Chloride 110 mls @ 55 mls/hr IV ONETIME ONE Stop: 01/19/19 13:14 Last Admin: 01/19/19 11:19 Dose: 55 mls/hr Lactobacillus Rhamnosus (Culturelle) 1 cap PO BID [facility] Last Admin: 01/19/19 09:15 Dose: 1 cap Lamotrigine 100 mg/ (Lamotrigine 50 mg) 150 mg PO BID [facility] Last Admin: 01/19/19 10:34 Dose: 150 mg Levofloxacin (Levaquin) 250 mg PO Q24H [facility] Last Admin: 01/18/19 16:16 Dose: 250 mg Levofloxacin (Levaquin) 500 mg PO Q24H [facility] Last Admin: 01/18/19 16:16 Dose: 500 mg Melatonin (Melatonin) 9 mg PO BEDTIME [facility] Last Admin: 01/18/19 21:29 Dose: 9 mg Metoprolol Tartrate (Lopressor) 25 mg PO BID [facility] Last Admin: 01/19/19 09:18 Dose: 25 mg Nystatin (Mycostatin) 5 ml PO QID [facility] Last Admin: 01/19/19 10:09 Dose: Not Given Ondansetron HCl (Zofran Odt) 4 mg PO Q6H PRN PRN Reason: Nausea able to take PO Ondansetron HCl (Zofran) 4 mg IV Q4H PRN PRN Reason: Nausea/Vomiting Oxycodone HCl (Oxycodone) 5 mg PO Q4H PRN PRN Reason: Pain Last Admin: 01/15/19 20:37 Dose: 5 mg Fluoxetine 40mg Cap ((Ptom)) 0 each PO DAILY [facility] Last Admin: 01/19/19 09:19 Dose: 1 each Verapamil HCl (Calan Sr) 240 mg PO DAILY [facility] Last Admin: 01/19/19 09:00 Dose: 240 mg Discontinued Medications Clonazepam (Klonopin) 1 mg PO BEDTIME [facility] Last Admin: 01/14/19 20:16 Dose: 1 mg Fluoxetine HCl (Prozac) 80 mg PO DAILY [facility] Last Admin: 01/11/19 11:00 Dose: 80 mg Fluoxetine HCl (Prozac) 80 mg PO DAILY [facility] Last Admin: 01/16/19 08:41 Dose: Not Given Furosemide (Lasix) 20 mg IVPUSH ONETIME ONE Stop: 01/12/19 12:31 Last Admin: 01/12/19 12:32 Dose: 20 mg Furosemide (Lasix) Confirm Administered Dose 20 mg .ROUTE .STK-MED ONE Stop: 01/12/19 12:30 Last Admin: 01/12/19 12:33 Dose: Not Given Furosemide (Lasix) 40 mg IVPUSH NOW ONE Stop: 01/12/19 15:37 Last Admin: 01/12/19 16:09 Dose: 40 mg Furosemide (Lasix) 40 mg IVPUSH NOW ONE Stop: 01/13/19 09:52 Last Admin: 01/13/19 11:30 Dose: 40 mg Furosemide (Lasix) 40 mg IVPUSH ONETIME ONE Stop: 01/16/19 15:27 Last Admin: 01/16/19 15:36 Dose: 40 mg Furosemide (Lasix) Confirm Administered Dose 40 mg .ROUTE .STK-MED ONE Stop: 01/16/19 15:32 Last Admin: 01/16/19 16:23 Dose: Not Given Furosemide (Lasix) 40 mg IVPUSH ONETIME ONE Stop: 01/17/19 10:01 Last Admin: 01/17/19 10:15 Dose: 40 mg Haloperidol Lactate (Haldol) 1 mg IVPUSH Q4H PRN PRN Reason: Agitation Last Admin: 01/16/19 04:42 Dose: 1 mg Hydromorphone HCl (Dilaudid) 0.5 mg IVPUSH ONETIME ONE Stop: 01/12/19 12:01 Last Admin: 01/12/19 12:00 Dose: 0.5 mg Sodium Chloride (Normal Saline) 1,000 mls @ 1,000 mls/hr IV ASDIRECTED ELLYN Last Admin: 01/11/19 06:17 Dose: 1,000 mls/hr Sodium Chloride (Normal Saline) 1,000 mls @ 125 mls/hr IV ONETIME ONE Stop: 01/11/19 05:43 Last Admin: 01/10/19 21:45 Dose: 125 mls/hr Potassium Chloride 20 meq/Lidocaine HCl 2 ml/ Sodium Chloride 112 mls @ 50 mls/ hr IV Q2H [facility] Stop: 01/11/19 13:59 Last Admin: 01/11/19 17:25 Dose: 50 mls/hr Piperacillin/Tazobactam/ (Dextrose 3.375 gm/ Premix) 50 mls @ 100 mls/hr IV Q6H [facility] Last Admin: 01/16/19 08:24 Dose: 100 mls/hr Vancomycin HCl 1 gm/ Sodium (Chloride) 250 mls @ 167 mls/hr IV Q24H [facility] Last Admin: 01/12/19 14:05 Dose: 167 mls/hr Heparin Sodium (Porcine) 5,000 (units/ Sodium Chloride) 501 mls @ 0 mls/hr IV ASDIRECTED ELLYN Propofol (Diprivan 100 Ml) 100 mls @ 1.45 mls/hr IV TITRATE ELYLN; Protocol Last Titration: 01/14/19 11:15 Dose: 0 mcg/kg/min, 0 mls/hr Potassium Chloride 40 meq/ (Premix) 100 mls @ 25 mls/hr IV ONETIME ONE Stop: 01/12/19 19:29 Last Admin: 01/12/19 15:53 Dose: 25 mls/hr Magnesium Sulfate 2 gm/ Premix 50 mls @ 25 mls/hr IV Q6H [facility] Stop: 01/13/19 16:59 Last Admin: 01/13/19 14:55 Dose: 25 mls/hr Potassium Chloride 40 meq/ (Premix) 100 mls @ 25 mls/hr IV ONETIME ONE Stop: 01/13/19 12:59 Last Admin: 01/13/19 08:52 Dose: 25 mls/hr Doxycycline Hyclate 100 mg/ (Sodium Chloride) 100 mls @ 100 mls/hr IV Q12H [facility] Last Admin: 01/15/19 14:52 Dose: 100 mls/hr Sodium Chloride (Normal Saline) 1,000 mls @ 125 mls/hr IV ASDIRECTED [facility] Sodium Chloride (Normal Saline) 1,000 mls @ 0 mls/hr IV ASDIRECTED [facility] Last Admin: 01/16/19 04:18 Dose: 25 mls/hr Potassium Chloride 20 meq/Lidocaine HCl 2 ml/ Sodium Chloride 112 mls @ 56 mls/ hr IV Q2H [facility] Stop: 01/14/19 13:59 Last Admin: 01/14/19 12:08 Dose: 56 mls/hr Potassium Chloride 20 meq/Lidocaine HCl 2 ml/ Sodium Chloride 112 mls @ 56 mls/ hr IV Q2H [facility] Stop: 01/15/19 13:59 Last Admin: 01/15/19 12:53 Dose: 56 mls/hr Sodium Chloride (Normal Saline) 76 mls @ 3 mls/sec IV ASDIRECTED [facility] Stop: 01/15/19 14:16 Last Admin: 01/15/19 14:32 Dose: 3 mls/sec Levofloxacin/Dextrose 750 mg/ (Premix) 150 mls @ 100 mls/hr IV Q24H [facility] Last Admin: 01/17/19 16:52 Dose: 100 mls/hr Magnesium Sulfate 2 gm/ Premix 50 mls @ 12.5 mls/hr IV Q6H [facility] Stop: 01/18/19 19:59 Last Admin: 01/18/19 16:14 Dose: 12.5 mls/hr Influenza Virus Vaccine (Pharmacy To Dose - Influenza Vaccine) 1 each IM ONETIME ONE Stop: 01/12/19 11:01 Influenza Virus Vaccine (Fluzone High-Dose Syringe) 180 mcg IM .ONCE ONE Stop: 01/12/19 09:01 Last Admin: 01/12/19 08:47 Dose: Not Given Influenza Virus Vaccine (Pharmacy To Dose - Influenza Vaccine) 1 each IM ONETIME ONE Stop: 01/19/19 13:01 Influenza Virus Vaccine (Fluzone High-Dose Syringe) 180 mcg IM .ONCE ONE Stop: 01/19/19 09:01 Last Admin: 01/19/19 09:15 Dose: 180 mcg Iopamidol (Isovue-300 (61%)) 100 ml IV . DIRECTED PRN PRN Reason: RADIOLOGY EXAM Stop: 01/16/19 14:02 Last Admin: 01/15/19 14:33 Dose: 100 ml Lamotrigine (Lamotrigine) 100 mg PO BID [facility] Last Admin: 01/13/19 17:10 Dose: Not Given Lamotrigine (Lamotrigine) 75 mg PO BID [facility] Last Admin: 01/13/19 17:10 Dose: Not Given Lamotrigine (Lamotrigine) 75 mg .XX BID [facility] Last Admin: 01/14/19 10:06 Dose: 75 mg Lamotrigine (Lamotrigine) 100 mg .XX BID [facility] Last Admin: 01/14/19 10:20 Dose: 100 mg Lamotrigine (Lamotrigine) 75 mg PO BID [facility] Last Admin: 01/15/19 08:15 Dose: 75 mg Lamotrigine (Lamotrigine) 100 mg PO BID [facility] Last Admin: 01/15/19 08:16 Dose: 100 mg Lamotrigine (Lamotrigine) 150 mg PO BID [facility] Last Admin: 01/19/19 09:19 Dose: Not Given Lorazepam (Ativan) 0.5 mg IVPUSH ONETIME ONE Stop: 01/10/19 20:20 Last Admin: 01/10/19 20:45 Dose: 0.5 mg Lorazepam (Ativan) 1 mg IV Q4H PRN PRN Reason: Anxiety Last Admin: 01/12/19 20:07 Dose: 1 mg Lorazepam (Ativan) 0.5 mg IVPUSH ONETIME ONE Stop: 01/12/19 13:37 Last Admin: 01/12/19 13:40 Dose: 0.5 mg Lorazepam (Ativan) 0.5 mg IV Q2H PRN PRN Reason: Anxiety Last Admin: 01/14/19 14:22 Dose: 0.5 mg Lorazepam (Ativan) 0.5 - 1 mg IV Q2H PRN PRN Reason: Anxiety Last Admin: 01/14/19 18:08 Dose: 1 mg Naloxone HCl (Narcan) 0.1 mg IVPUSH ASDIRECTED PRN PRN Reason: Sedation Last Admin: 01/12/19 12:25 Dose: 0.1 mg Non-Formulary Medication (Lamotrigine [Lamictal]) 175 mg PO BID [facility] Last Admin: 01/11/19 01:26 Dose: Not Given Pantoprazole Sodium (Protonix Iv) 40 mg IV BID [facility] Last Admin: 01/11/19 11:01 Dose: 40 mg Pantoprazole Sodium (Protonix) 40 mg PO DAILY@0730 [facility] Last Admin: 01/12/19 08:45 Dose: 40 mg Pantoprazole Sodium (Protonix Iv) 40 mg IVPUSH Q24H [facility] Last Admin: 01/13/19 16:07 Dose: 40 mg Potassium Chloride (Klor-Con M20) 40 meq PO ONETIME ONE Stop: 01/16/19 08:46 Last Admin: 01/16/19 10:26 Dose: 40 meq Potassium Chloride (Klor-Con M20) 40 meq PO BID [facility] Stop: 01/17/19 21:01 Last Admin: 01/17/19 21:47 Dose: 40 meq Potassium Chloride (Klor-Con M20) 40 meq PO ONETIME ONE Stop: 01/18/19 10:31 Last Admin: 01/18/19 10:14 Dose: 40 meq Potassium Chloride (Klor-Con M20) 40 meq PO ONETIME ONE Stop: 01/19/19 09:16 Last Admin: 01/19/19 09:19 Dose: 40 meq Propofol (Diprivan 20 Ml) Confirm Administered Dose 200 mg .ROUTE .STK-MED ONE Stop: 01/11/19 09:35 Propofol (Diprivan 20 Ml) 200 mg .ROUTE .STK-MED ONE Stop: 01/12/19 14:01 Vancomycin HCl (Vancomycin) 1 gm IV .PHARMACY TO DOSE [facility] Stop: 01/12/19 14:01 - Exam Quality Assessment: Supplemental Oxygen General: Alert, Oriented, Cooperative, No Acute Distress Lungs: Clear to Auscultation, Normal Respiratory Effort Cardiovascular: Regular Rate, Regular Rhythm, Murmurs GI/Abdominal Exam: Soft, No Distention Extremities: No Pedal Edema Psy/Mental Status: Alert, Normal Affect - Problem List Review Problem List Initiated/Reviewed/Updated: Yes - My Orders Last 24 Hours: My Active Orders 01/18/19 11:45 RT Acapella [RESPCARE] Routine 01/18/19 17:00 levoFLOXacin [Levaquin] 250 mg PO Q24H levoFLOXacin [Levaquin] 500 mg PO Q24H 01/19/19 09:30 Lamotrigine 150 mg PO BID 01/19/19 11:15 Sodium Ferric Gluconate Cmplex [Ferrlecit IV] 125 mg Sodium Chloride 0.9% [ Normal Saline] 100 ml IV ONETIME 01/20/19 05:00 BASIC METABOLIC PANEL,BMP [CHEM] Timed CBC W/O DIFF,HEMOGRAM [HEME] Timed (1) - Plan Plan:: ASSESSMENT / PLAN Bilateral pneumonia - initially felt to be fluid versus infection, but patchy infiltrates most consistent with pneumonia. Slowly improving from a respiratory standpoint. Sputum culture did grow yeast but she also has thrush and I suspect that this is where the yeast came from as she is otherwise clinically improving. WBC trending down and exam improving. -Blood and sputum cultures pending -continue levofloxacin started 01/15 -Reassess volume status daily -PT for strengthening Hypoxic respiratory failure - slowly improving but still requiring oxygen. -Management as above -Supplement oxygen Mixed type delirium - back to baseline at this time. -Continue melatonin at bedtime -Continue antiepileptic medications -Continue smaller dose of clonazepam at bedtime Anemia - no obvious blood in the stool. Hemoglobin stable and now back over 11. Iron level is low. -Iron transfusion today -Saline lock IV -Protonix 40 mg daily -Repeat hemoglobin level in the morning Seizure disorder - stable. -Continue lamotrigine with slight dose reduction Anxiety - stable so far. -continue home medications Hypertension -continue home medications Maintenance issues -Nutrition - Mechanical soft -Fernando catheter - removed -DVT - Lovenox 40 mg subcutaneous daily -GI - Protonix 40 mg daily Disposition - [facility] though home with home health care is a possibility Primary care provider - Dr. Goddard, [place], [place]. Sammy Hanson MD
[2019-01-19] MEDS ORDERED: Dimethicone 20%/Zinc Oxide 25% 56 GM Spray Bottle TOP PRN (12:49)
[2019-01-19] MEDS ORDERED: Dimethicone 20%/Zinc Oxide 25% 56 GM Spray Bottle TOP ONE (12:49)
[2019-01-19] MEDS: Enoxaparin 40 MG/0.4 ML Syringe SUBCUT SCH (15:51)
[2019-01-19] MEDS: Levofloxacin 250 MG Tab PO SCH (16:24)
[2019-01-19] MEDS: Levofloxacin 500 MG Tab PO SCH (16:24)
[2019-01-19] MEDS: ClonazePAM 0.5 MG Tab PO SCH (20:30)
[2019-01-19] MEDS: Melatonin 3 MG Tab PO SCH (20:30)
[2019-01-20] MEDS: Nystatin Susp 100,000 Unit/ML 5 ML UD Cup PO SCH ×4 (05:24→22:15)
[2019-01-20] MEDS: Albuterol/Ipratropium 3.0-0.5 MG/3 ML Neb Soln NEB SCH ×4 (07:33→20:39)
--- NOTE | 2019-01-20 09:54 | PCM.PN ---
- General Info Date of Service: 01/20/19 Subjective Update: There were no acute events overnight. She reports that her shortness of breath has improved when compared to yesterday. Still has a little bit of a cough. No complaints of pain. Still weak but slowly improving. appetite a little bit better but still not eating much. Still requiring 3 L of supplemental oxygen. Functional Status: Reports: Pain Controlled, Tolerating Diet - Review of Systems General: Reports: Weakness Pulmonary: Reports: Cough - Patient Data Vitals - Most Recent: Last Vital Signs Temp 35.5 C 01/20/19 07:14 Pulse 84 01/20/19 07:33 Resp 18 01/20/19 07:14 BP 128/55 L 01/20/19 07:14 Pulse Ox 93 L 01/20/19 07:14 Weight - Most Recent: 46.085 kg I&O - Last 24 Hours: Intake & Output 01/19/19 01/20/19 01/20/19 22:59 06:59 14:59 Output Total 200 Balance -200 Lab Results Last 24 Hours: Laboratory Results - last 24 hr 01/20/19 01/20/19 Range/Units 04:33 04:33 WBC 10.1 (4.5-11.0) K/uL RBC 3.84 (3.30-5.50) M/uL Hgb 9.9 L (12.0-15.0) g/dL Hct 32.2 L (36.0-48.0) % MCV 84 (80-98) fL MCH 26 L (27-31) pg MCHC 31 L (32-36) % Plt Count 574 H (150-400) K/uL Sodium 134 L (140-148) mmol/L Potassium 3.7 (3.6-5.2) mmol/L Chloride 100 (100-108) mmol/L Carbon Dioxide 24 (21-32) mmol/L Anion Gap 13.7 (5.0-14.0) mmol/L BUN 13 (7-18) mg/dL Creatinine 0.7 (0.6-1.0) mg/dL Est Cr Clr Drug Dosing 52.95 mL/min Estimated GFR (MDRD) > 60 (>60) Glucose 93 (74-106) mg/dL Calcium 8.4 L (8.5-10.1) mg/dL Cecilio Results Last 24 Hours: Microbiology 03/14/19 09:10 Gram Stain - Final Sputum - Expectorated Respiratory Culture - Final Yeast Med Orders - Current: Current Medications Acetaminophen (Tylenol) 650 mg PO Q4H PRN PRN Reason: Pain (Mild 1-3)/fever Last Admin: 01/19/19 03:29 Dose: 650 mg Albuterol (Proventil Neb Soln) 2.5 mg NEB Q4H PRN PRN Reason: Shortness Of Breath/wheezing Last Admin: 01/19/19 03:30 Dose: 2.5 mg Albuterol/Ipratropium (Duoneb 3.0-0.5 Mg/3 Ml) 3 ml NEB QIDRT [facility] Last Admin: 01/20/19 07:33 Dose: 3 ml Clonazepam (Klonopin) 0.5 mg PO BEDTIME [facility] Last Admin: 01/19/19 20:30 Dose: 0.5 mg Dimethicone/Zinc Oxide (Rash Relief-Zinc Oxide [place]) 0 gm TOP ASDIRECTED PRN PRN Reason: Other Docusate Sodium (Colace) 100 mg PO BID PRN PRN Reason: Constipation Enoxaparin Sodium (Lovenox) 40 mg SUBCUT Q24H [facility] Last Admin: 01/19/19 15:51 Dose: 40 mg Hydrochlorothiazide (Hydrochlorothiazide) 25 mg PO DAILY [facility] Last Admin: 01/19/19 09:16 Dose: 25 mg Hyoscyamine (Hyomax-Sl) 0.125 mg SL TID PRN PRN Reason: Nausea Lactobacillus Rhamnosus (Culturelle) 1 cap PO BID [facility] Last Admin: 01/19/19 20:30 Dose: 1 cap Lamotrigine 100 mg/ (Lamotrigine 50 mg) 150 mg PO BID [facility] Last Admin: 01/19/19 20:30 Dose: 150 mg Levofloxacin (Levaquin) 250 mg PO Q24H [facility] Last Admin: 01/19/19 16:24 Dose: 250 mg Levofloxacin (Levaquin) 500 mg PO Q24H [facility] Last Admin: 01/19/19 16:24 Dose: 500 mg Melatonin (Melatonin) 9 mg PO BEDTIME [facility] Last Admin: 01/19/19 20:30 Dose: 9 mg Metoprolol Tartrate (Lopressor) 25 mg PO BID [facility] Last Admin: 01/19/19 20:31 Dose: 25 mg Nystatin (Mycostatin) 5 ml PO QID [facility] Last Admin: 01/20/19 05:24 Dose: Not Given Ondansetron HCl (Zofran Odt) 4 mg PO Q6H PRN PRN Reason: Nausea able to take PO Ondansetron HCl (Zofran) 4 mg IV Q4H PRN PRN Reason: Nausea/Vomiting Oxycodone HCl (Oxycodone) 5 mg PO Q4H PRN PRN Reason: Pain Last Admin: 01/15/19 20:37 Dose: 5 mg Fluoxetine 40mg Cap ((Ptom)) 0 each PO DAILY [facility] Last Admin: 01/19/19 09:19 Dose: 1 each Verapamil HCl (Calan Sr) 240 mg PO DAILY [facility] Last Admin: 01/19/19 09:00 Dose: 240 mg Discontinued Medications Clonazepam (Klonopin) 1 mg PO BEDTIME [facility] Last Admin: 01/14/19 20:16 Dose: 1 mg Dimethicone/Zinc Oxide (Rash Relief-Zinc Oxide [place]) Confirm Administered Dose 56 gm TOP .STK-MED ONE Stop: 01/19/19 12:50 Last Admin: 01/19/19 13:46 Dose: 1 applic Fluoxetine HCl (Prozac) 80 mg PO DAILY [facility] Last Admin: 01/11/19 11:00 Dose: 80 mg Fluoxetine HCl (Prozac) 80 mg PO DAILY [facility] Last Admin: 01/16/19 08:41 Dose: Not Given Furosemide (Lasix) 20 mg IVPUSH ONETIME ONE Stop: 01/12/19 12:31 Last Admin: 01/12/19 12:32 Dose: 20 mg Furosemide (Lasix) Confirm Administered Dose 20 mg .ROUTE .STK-MED ONE Stop: 01/12/19 12:30 Last Admin: 01/12/19 12:33 Dose: Not Given Furosemide (Lasix) 40 mg IVPUSH NOW ONE Stop: 01/12/19 15:37 Last Admin: 01/12/19 16:09 Dose: 40 mg Furosemide (Lasix) 40 mg IVPUSH NOW ONE Stop: 01/13/19 09:52 Last Admin: 01/13/19 11:30 Dose: 40 mg Furosemide (Lasix) 40 mg IVPUSH ONETIME ONE Stop: 01/16/19 15:27 Last Admin: 01/16/19 15:36 Dose: 40 mg Furosemide (Lasix) Confirm Administered Dose 40 mg .ROUTE .STK-MED ONE Stop: 01/16/19 15:32 Last Admin: 01/16/19 16:23 Dose: Not Given Furosemide (Lasix) 40 mg IVPUSH ONETIME ONE Stop: 01/17/19 10:01 Last Admin: 01/17/19 10:15 Dose: 40 mg Haloperidol Lactate (Haldol) 1 mg IVPUSH Q4H PRN PRN Reason: Agitation Last Admin: 01/16/19 04:42 Dose: 1 mg Hydromorphone HCl (Dilaudid) 0.5 mg IVPUSH ONETIME ONE Stop: 01/12/19 12:01 Last Admin: 01/12/19 12:00 Dose: 0.5 mg Sodium Chloride (Normal Saline) 1,000 mls @ 1,000 mls/hr IV ASDIRECTED ELLYN Last Admin: 01/11/19 06:17 Dose: 1,000 mls/hr Sodium Chloride (Normal Saline) 1,000 mls @ 125 mls/hr IV ONETIME ONE Stop: 01/11/19 05:43 Last Admin: 01/10/19 21:45 Dose: 125 mls/hr Potassium Chloride 20 meq/Lidocaine HCl 2 ml/ Sodium Chloride 112 mls @ 50 mls/ hr IV Q2H ELLYN Stop: 01/11/19 13:59 Last Admin: 01/11/19 17:25 Dose: 50 mls/hr Piperacillin/Tazobactam/ (Dextrose 3.375 gm/ Premix) 50 mls @ 100 mls/hr IV Q6H [facility] Last Admin: 01/16/19 08:24 Dose: 100 mls/hr Vancomycin HCl 1 gm/ Sodium (Chloride) 250 mls @ 167 mls/hr IV Q24H ELL[place] Last Admin: 01/12/19 14:05 Dose: 167 mls/hr Heparin Sodium (Porcine) 5,000 (units/ Sodium Chloride) 501 mls @ 0 mls/hr IV ASDIRECTED ELLYN Propofol (Diprivan 100 Ml) 100 mls @ 1.45 mls/hr IV TITRATE ELLYN; Protocol Last Titration: 01/14/19 11:15 Dose: 0 mcg/kg/min, 0 mls/hr Potassium Chloride 40 meq/ (Premix) 100 mls @ 25 mls/hr IV ONETIME ONE Stop: 01/12/19 19:29 Last Admin: 01/12/19 15:53 Dose: 25 mls/hr Magnesium Sulfate 2 gm/ Premix 50 mls @ 25 mls/hr IV Q6H [facility] Stop: 01/13/19 16:59 Last Admin: 01/13/19 14:55 Dose: 25 mls/hr Potassium Chloride 40 meq/ (Premix) 100 mls @ 25 mls/hr IV ONETIME ONE Stop: 01/13/19 12:59 Last Admin: 01/13/19 08:52 Dose: 25 mls/hr Doxycycline Hyclate 100 mg/ (Sodium Chloride) 100 mls @ 100 mls/hr IV Q12H [facility] Last Admin: 01/15/19 14:52 Dose: 100 mls/hr Sodium Chloride (Normal Saline) 1,000 mls @ 125 mls/hr IV ASDIRECTED [facility] Sodium Chloride (Normal Saline) 1,000 mls @ 0 mls/hr IV ASDIRECTED [facility] Last Admin: 01/16/19 04:18 Dose: 25 mls/hr Potassium Chloride 20 meq/Lidocaine HCl 2 ml/ Sodium Chloride 112 mls @ 56 mls/ hr IV Q2H [facility] Stop: 01/14/19 13:59 Last Admin: 01/14/19 12:08 Dose: 56 mls/hr Potassium Chloride 20 meq/Lidocaine HCl 2 ml/ Sodium Chloride 112 mls @ 56 mls/ hr IV Q2H [facility] Stop: 01/15/19 13:59 Last Admin: 01/15/19 12:53 Dose: 56 mls/hr Sodium Chloride (Normal Saline) 76 mls @ 3 mls/sec IV ASDIRECTED [facility] Stop: 01/15/19 14:16 Last Admin: 01/15/19 14:32 Dose: 3 mls/sec Levofloxacin/Dextrose 750 mg/ (Premix) 150 mls @ 100 mls/hr IV Q24H [facility] Last Admin: 01/17/19 16:52 Dose: 100 mls/hr Magnesium Sulfate 2 gm/ Premix 50 mls @ 12.5 mls/hr IV Q6H [facility] Stop: 01/18/19 19:59 Last Admin: 01/18/19 16:14 Dose: 12.5 mls/hr Ferric Sodium Gluconate Complex 125 mg/ Sodium Chloride 110 mls @ 55 mls/hr IV ONETIME ONE Stop: 01/19/19 13:14 Last Admin: 01/19/19 11:19 Dose: 55 mls/hr Influenza Virus Vaccine (Pharmacy To Dose - Influenza Vaccine) 1 each IM ONETIME ONE Stop: 01/12/19 11:01 Influenza Virus Vaccine (Fluzone High-Dose 2017- Syringe) 180 mcg IM .ONCE ONE Stop: 01/12/19 09:01 Last Admin: 01/12/19 08:47 Dose: Not Given Influenza Virus Vaccine (Pharmacy To Dose - Influenza Vaccine) 1 each IM ONETIME ONE Stop: 01/19/19 13:01 Influenza Virus Vaccine (Fluzone High-Dose Syringe) 180 mcg IM .ONCE ONE Stop: 01/19/19 09:01 Last Admin: 01/19/19 09:15 Dose: 180 mcg Iopamidol (Isovue-300 (61%)) 100 ml IV . DIRECTED PRN PRN Reason: RADIOLOGY EXAM Stop: 01/16/19 14:02 Last Admin: 01/15/19 14:33 Dose: 100 ml Lamotrigine (Lamotrigine) 100 mg PO BID [facility] Last Admin: 01/13/19 17:10 Dose: Not Given Lamotrigine (Lamotrigine) 75 mg PO BID [facility] Last Admin: 01/13/19 17:10 Dose: Not Given Lamotrigine (Lamotrigine) 75 mg .XX BID [facility] Last Admin: 01/14/19 10:06 Dose: 75 mg Lamotrigine (Lamotrigine) 100 mg .XX BID [facility] Last Admin: 01/14/19 10:20 Dose: 100 mg Lamotrigine (Lamotrigine) 75 mg PO BID [facility] Last Admin: 01/15/19 08:15 Dose: 75 mg Lamotrigine (Lamotrigine) 100 mg PO BID [facility] Last Admin: 01/15/19 08:16 Dose: 100 mg Lamotrigine (Lamotrigine) 150 mg PO BID [facility] Last Admin: 01/19/19 09:19 Dose: Not Given Lorazepam (Ativan) 0.5 mg IVPUSH ONETIME ONE Stop: 01/10/19 20:20 Last Admin: 01/10/19 20:45 Dose: 0.5 mg Lorazepam (Ativan) 1 mg IV Q4H PRN PRN Reason: Anxiety Last Admin: 01/12/19 20:07 Dose: 1 mg Lorazepam (Ativan) 0.5 mg IVPUSH ONETIME ONE Stop: 01/12/19 13:37 Last Admin: 01/12/19 13:40 Dose: 0.5 mg Lorazepam (Ativan) 0.5 mg IV Q2H PRN PRN Reason: Anxiety Last Admin: 01/14/19 14:22 Dose: 0.5 mg Lorazepam (Ativan) 0.5 - 1 mg IV Q2H PRN PRN Reason: Anxiety Last Admin: 01/14/19 18:08 Dose: 1 mg Naloxone HCl (Narcan) 0.1 mg IVPUSH ASDIRECTED PRN PRN Reason: Sedation Last Admin: 01/12/19 12:25 Dose: 0.1 mg Non-Formulary Medication (Lamotrigine [Lamictal]) 175 mg PO BID [facility] Last Admin: 01/11/19 01:26 Dose: Not Given Pantoprazole Sodium (Protonix Iv) 40 mg IV BID [facility] Last Admin: 01/11/19 11:01 Dose: 40 mg Pantoprazole Sodium (Protonix) 40 mg PO DAILY@0730 [facility] Last Admin: 01/12/19 08:45 Dose: 40 mg Pantoprazole Sodium (Protonix Iv) 40 mg IVPUSH Q24H [facility] Last Admin: 01/13/19 16:07 Dose: 40 mg Potassium Chloride (Klor-Con M20) 40 meq PO ONETIME ONE Stop: 01/16/19 08:46 Last Admin: 01/16/19 10:26 Dose: 40 meq Potassium Chloride (Klor-Con M20) 40 meq PO BID [facility] Stop: 01/17/19 21:01 Last Admin: 01/17/19 21:47 Dose: 40 meq Potassium Chloride (Klor-Con M20) 40 meq PO ONETIME ONE Stop: 01/18/19 10:31 Last Admin: 01/18/19 10:14 Dose: 40 meq Potassium Chloride (Klor-Con M20) 40 meq PO ONETIME ONE Stop: 01/19/19 09:16 Last Admin: 01/19/19 09:19 Dose: 40 meq Propofol (Diprivan 20 Ml) Confirm Administered Dose 200 mg .ROUTE .STK-MED ONE Stop: 01/11/19 09:35 Propofol (Diprivan 20 Ml) 200 mg .ROUTE .STK-MED ONE Stop: 01/12/19 14:01 Vancomycin HCl (Vancomycin) 1 gm IV .PHARMACY TO DOSE ELLYN Stop: 01/12/19 14:01 - Exam Quality Assessment: Supplemental Oxygen General: Alert, Oriented, Cooperative, No Acute Distress Lungs: Clear to Auscultation, Normal Respiratory Effort Cardiovascular: Regular Rate, Regular Rhythm, Murmurs GI/Abdominal Exam: Soft, No Distention Extremities: No Pedal Edema. No: Increased Warmth Skin: Warm, Dry Psy/Mental Status: Alert, Normal Affect - Problem List Review Problem List Initiated/Reviewed/Updated: Yes - My Orders Last 24 Hours: My Active Orders 01/19/19 09:30 Lamotrigine 150 mg PO BID 01/19/19 12:49 Dimethicone/Zinc Oxide [Rash Relief-Zinc Oxide [place]] 0 gm TOP ASDIRECTED PRN 01/20/19 09:53 Sodium Ferric Gluconate Cmplex [Ferrlecit IV] 125 mg Sodium Chloride 0.9% [ Normal Saline] 100 ml IV ONETIME 01/21/19 05:00 BASIC METABOLIC PANEL,BMP [CHEM] Timed CBC W/O DIFF,HEMOGRAM [HEME] Timed (1) - Plan Plan:: ASSESSMENT / PLAN Bilateral pneumonia - initially felt to be fluid versus infection, but patchy infiltrates most consistent with pneumonia. Slowly improving from a respiratory standpoint. Sputum culture did grow yeast but she also has thrush and I suspect that this is where the yeast came from as she is otherwise clinically improving. WBC has normalized. Ongoing slow but steady clinical improvement. Volume status appropriate today. -Blood and sputum cultures pending -continue levofloxacin started 01/15 -Reassess volume status daily -PT for strengthening Hypoxic respiratory failure - slowly improving but still requiring oxygen. She may need to go home with home oxygen. -Management as above -Supplement oxygen Mixed type delirium - back to baseline at this time. -Continue melatonin at bedtime -Continue antiepileptic medications -Continue smaller dose of clonazepam at bedtime Anemia - no obvious blood in the stool. Hemoglobin stable around 10. Iron level is low. Tolerated iron transfusion yesterday. -Second Iron transfusion today -Saline lock IV -Protonix 40 mg daily -Repeat hemoglobin level in the morning Seizure disorder - stable. -Continue lamotrigine with slight dose reduction (175 mg down to 150 mg currently) Anxiety - stable so far. -continue home medications Hypertension -continue home medications Maintenance issues -Nutrition - Mechanical soft -Fernando catheter - removed -DVT - Lovenox 40 mg subcutaneous daily -GI - Protonix 40 mg daily Disposition - I would anticipate discharge to the half-way after the hospital stay. Patient is interested in subacute rehabilitation at [facility] Primary care provider - Dr. Goddard, [place], [place]. Sammy Hanson MD
[2019-01-20] MEDS: FLUOXETINE 40 MG PO SCH (09:59)
[2019-01-20] MEDS: lamoTRIgine 100 MG, lamoTRIgine 50 MG PO SCH ×4 (10:00→20:39)
[2019-01-20] MEDS: Metoprolol Tartrate 25 MG Tab PO SCH ×2 (10:01→20:39)
[2019-01-20] MEDS: Hydrochlorothiazide 25 MG Tab PO SCH (10:02)
[2019-01-20] MEDS: Lactobacillus Rhamnosus GG (Probiotic) Cap PO SCH ×2 (10:02→20:39)
[2019-01-20] MEDS: Verapamil 120 MG Tab.ER PO SCH (10:02)
[2019-01-20] MEDS ORDERED: Sodium Ferric Gluconate Cmplex 125 MG in Sodium Chloride 0.9% 100 ML IV ONE (11:00)
[2019-01-20] MEDS: Enoxaparin 40 MG/0.4 ML Syringe SUBCUT SCH (16:30)
[2019-01-20] MEDS: Levofloxacin 250 MG Tab PO SCH (16:31)
[2019-01-20] MEDS: Levofloxacin 500 MG Tab PO SCH (16:31)
[2019-01-20] MEDS: Melatonin 3 MG Tab PO SCH (20:39)
[2019-01-20] MEDS: ClonazePAM 0.5 MG Tab PO SCH (20:42)
[2019-01-20] MEDS: Acetaminophen 325 MG Tab PO PRN (20:55)
[2019-01-21] MEDS: Nystatin Susp 100,000 Unit/ML 5 ML UD Cup PO SCH ×2 (05:55→11:14)
[2019-01-21] MEDS: Albuterol/Ipratropium 3.0-0.5 MG/3 ML Neb Soln NEB SCH ×2 (07:12→11:08)
[2019-01-21] MEDS: Metoprolol Tartrate 25 MG Tab PO SCH (09:16)
[2019-01-21] MEDS: Verapamil 120 MG Tab.ER PO SCH (09:17)
[2019-01-21] MEDS: lamoTRIgine 100 MG, lamoTRIgine 50 MG PO SCH ×2 (09:18)
[2019-01-21] MEDS: Lactobacillus Rhamnosus GG (Probiotic) Cap PO SCH (09:19)
[2019-01-21] MEDS: FLUOXETINE 40 MG PO SCH (09:20)
[2019-01-21] MEDS: Hydrochlorothiazide 25 MG Tab PO SCH (09:20)
[2019-01-21] MEDS ORDERED: Potassium Chloride 20 MEQ Tab.ER PO ONE (09:30)
[2019-01-21 11:28] VITALS: BP 127/47
--- NOTE | 2019-01-21 12:00 | PCM.DCSUM1 ---
Discharge Summary - Hospital Course Brief History: Ms. Dimas is a 73-year-old woman who was admitted through the emergency department with dehydration and weakness secondary to nausea and vomiting of 24 hours duration. On evaluation in emergency department was also found to have new significant anemia with a hemoglobin of 8.0. - Discharge Data Discharge Date: 01/21/19 Discharge Disposition: DC/Tfer to SNF 03 Condition: Fair - Discharge Diagnosis/Problem(s) (1) Pneumonia SNOMED Code(s): 167467348 ICD Code: J18.9 - PNEUMONIA, UNSPECIFIED ORGANISM Status: Acute Current Visit: Yes (2) Acute respiratory failure with hypoxia SNOMED Code(s): 85941648, 081012395 ICD Code: J96.01 - ACUTE RESPIRATORY FAILURE WITH HYPOXIA Status: Acute Current Visit: Yes (3) Anemia SNOMED Code(s): 925158366 ICD Code: D64.9 - ANEMIA, UNSPECIFIED Status: Acute Priority: High Current Visit: Yes Qualifiers: Anemia type: unspecified type Qualified Code(s): D64.9 - Anemia, unspecified (4) Anxiety SNOMED Code(s): 52318065 ICD Code: F41.9 - ANXIETY DISORDER, UNSPECIFIED Status: Acute Priority: High Current Visit: Yes (5) Acute delirium SNOMED Code(s): 0071049, 0968940 ICD Code: R41.0 - DISORIENTATION, UNSPECIFIED Status: Acute Current Visit : Yes (6) Seizure disorder SNOMED Code(s): 922832392 ICD Code: G40.909 - EPILEPSY, UNSP, NOT INTRACTABLE, WITHOUT STATUS EPILEPTICUS Status: Chronic Current Visit: No - Patient Summary/Data Consults: Consultations 01/10/19 23:23 Consult to Physician [CONS] Routine Consulting Provider: Mj Espinoza Call Completed to Consulting Physician: Yes: EGD in am Reason for Consult: EGD in am Person Notified: Dr. Espinoza Date Notified: 01/10/19 Time Notified: 22:14 01/11/19 11:26 Consult to Physical Therapy [PT Evaluation and Treatment] [CONS] Routine Please Evaluate and Treat. PT Reason for Consult: Weakness This query below is only for informational purposes and is not editable. Admission Diagnosis/Problem: Anemia Hospital Course: Corina Dimas is a 73 year old female who presented to the ED with concerns of nausea and vomiting, which started 1 day prior to admission. She is accompanied by her . She states she has had chronic diarrhea for about 2 years. She states that she feels her vision has not be normal as she cannot focus on objects. She notes the room appears to be spinning. Her states her shakiness occurred a couple of days ago. Her states that she did fall 1 day ago but did not hit her head or lose consciousness. She states she does have epigastric discomfort. She denies abdominal pain, fever, chills, and changes in urination. She does have a past history of seizures. Evaluation the emergency department also documented a new anemia with a hemoglobin of 8.0. Most recent hemoglobin from 2 months prior to admission had been 11.0. On admission she was given IV fluids for hydration and kept nothing by mouth. Serial hemoglobin levels were obtained and by the following morning hemoglobin had dropped to 7.5. She was transfused one unit of red blood cells and EGD was obtained showing no obvious source of active bleeding or recent blood loss. These results were reviewed with the patient as well as her and recommendation was made to proceed with colonoscopy the following day. She absolutely refused further endoscopy and not consent to the colonoscopy. Plan had been to monitor hemoglobins if stable discharge to home the following day. The next morning she was noted to be more confused with increasing respiratory rate and borderline hypoxia. Chest x-ray was obtained and showed bilateral infiltrates, fluid versus infection. Late morning or early afternoon she experienced further respiratory decline and was intolerant of even a simple mask on her face. Arterial blood gases were obtained and showed evidence of evolving respiratory failure. She was intubated and placed on mechanical ventilation. Because of the question of possible pulmonary edema she did receive IV furosemide but did not improve significantly with diuresis. Given this it was felt to be more likely that infiltrates were secondary to infection with pneumonia. Symptoms developed within 48 hours of admission and were felt to represent a community-acquired pneumonia. Because of respiratory failure she was treated with more broad spectrum antibiotics initially vancomycin and Zosyn. She remained on the ventilator for a period of 48 hours and was extubated on January 14. Respiratory status gradually improved from that point in antibiotic therapy was de-escalated to levofloxacin. Course was complicated by development of mixed delirium. Doses of medication were adjusted and she seemed to improve from this standpoint as well. By the time of discharge she remained fairly weak and will be discharged to intermediate for restorative physical therapy as well as occupational therapy. Hemoglobin was monitored throughout the hospital stay and remained stable showing no further evidence of active bleeding. Activity will be as tolerated and she will resume her usual diet. She continues to require supplemental oxygen and will be discharged to intermediate on 2 L of oxygen per minute via nasal cannula. Follow -up laboratory studies including a BMP and CBC will be obtained in 2 weeks. - Patient Instructions Diet: Usual Diet as Tolerated, NPO Activity: As Tolerated, Bedrest Other/Special Instructions: daily physical therapy and occupational therapy while at the intermediate. Follow-up labs in 2 weeks including BMP and CBC. - Discharge Plan *PRESCRIPTION DRUG MONITORING PROGRAM REVIEWED*: Not Applicable *COPY OF PRESCRIPTION DRUG MONITORING REPORT IN PATIENT CLYDE: Not Applicable Prescriptions/Med Rec: Ferrous Sulfate 325 mg PO BID #60 tablet Lactobacillus Rhamnosus GG [Culturelle] 1 cap PO BID #60 cap oxyCODONE 5 mg PO Q4H PRN #12 tablet PRN Reason: Pain Home Medications: Home Meds ClonazePAM [KlonoPIN] 1 mg PO BEDTIME 11/27/13 [History] Metoprolol Tartrate [Lopressor] 25 mg PO Q12HR 11/27/13 [History] Verapamil [Verelan] 240 mg PO DAILY 11/27/13 [History] Hydrochlorothiazide 25 mg PO DAILY 02/18/16 [History] Famotidine 20 mg PO DAILY 01/10/19 [History] Hyoscyamine [Levsin] 0.125 mg SL TID PRN 01/10/19 [History] Enoxaparin [Lovenox] 40 mg SUBCUT Q24H syringe 01/12/19 [Rx] FLUoxetine HCl [Fluoxetine HCl] 80 mg PO DAILY 01/16/19 [History] Ferrous Sulfate 325 mg PO BID #60 tablet 01/21/19 [Rx] Lactobacillus Rhamnosus GG [Culturelle] 1 cap PO BID #60 cap 01/21/19 [Rx] lamoTRIgine [LaMICtal] 150 mg PO BID #60 01/21/19 [Rx] oxyCODONE 5 mg PO Q4H PRN #12 tablet 01/21/19 [Rx] - Discharge Summary/Plan Comment DC Time >30 min.: No - Patient Data Vitals - Most Recent: Last Vital Signs Temp 97.5 F 01/21/19 11:00 Pulse 82 01/21/19 11:10 Resp 18 01/21/19 11:00 BP 127/47 L 01/21/19 11:00 Pulse Ox 92 L 01/21/19 11:10 Weight - Most Recent: 99 lb 6.4 oz I&O - Last 24 hours: Intake & Output 01/20/19 01/21/19 01/21/19 22:59 06:59 14:59 Intake Total 400 120 Balance 400 120 Lab Results - Last 24 hrs: Laboratory Results - last 24 hr 01/21/19 01/21/19 Range/Units 05:56 05:56 WBC 8.3 (4.5-11.0) K/uL RBC 3.96 (3.30-5.50) M/uL Hgb 10.4 L (12.0-15.0) g/dL Hct 33.0 L (36.0-48.0) % MCV 83 (80-98) fL MCH 26 L (27-31) pg MCHC 32 (32-36) % Plt Count 548 H (150-400) K/uL Sodium 135 L (140-148) mmol/L Potassium 3.4 L (3.6-5.2) mmol/L Chloride 100 (100-108) mmol/L Carbon Dioxide 28 (21-32) mmol/L Anion Gap 10.4 (5.0-14.0) mmol/L BUN 11 (7-18) mg/dL Creatinine 0.7 (0.6-1.0) mg/dL Est Cr Clr Drug Dosing 52.95 mL/min Estimated GFR (MDRD) > 60 (>60) Glucose 93 (74-106) mg/dL Calcium 8.6 (8.5-10.1) mg/dL Med Orders - Current: Current Medications Acetaminophen (Tylenol) 650 mg PO Q4H PRN PRN Reason: Pain (Mild 1-3)/fever Last Admin: 01/20/19 20:55 Dose: 650 mg Albuterol (Proventil Neb Soln) 2.5 mg NEB Q4H PRN PRN Reason: Shortness Of Breath/wheezing Last Admin: 01/19/19 03:30 Dose: 2.5 mg Albuterol/Ipratropium (Duoneb 3.0-0.5 Mg/3 Ml) 3 ml NEB QIDRT [facility] Last Admin: 01/21/19 11:08 Dose: 3 ml Clonazepam (Klonopin) 0.5 mg PO BEDTIME [facility] Last Admin: 01/20/19 20:42 Dose: 0.5 mg Dimethicone/Zinc Oxide (Rash Relief-Zinc Oxide [place]) 0 gm TOP ASDIRECTED PRN PRN Reason: Other Docusate Sodium (Colace) 100 mg PO BID PRN PRN Reason: Constipation Enoxaparin Sodium (Lovenox) 40 mg SUBCUT Q24H [facility] Last Admin: 01/20/19 16:30 Dose: 40 mg Hydrochlorothiazide (Hydrochlorothiazide) 25 mg PO DAILY [facility] Last Admin: 01/21/19 09:20 Dose: 25 mg Hyoscyamine (Hyomax-Sl) 0.125 mg SL TID PRN PRN Reason: Nausea Lactobacillus Rhamnosus (Culturelle) 1 cap PO BID [facility] Last Admin: 01/21/19 09:19 Dose: 1 cap Lamotrigine 100 mg/ (Lamotrigine 50 mg) 150 mg PO BID [facility] Last Admin: 01/21/19 09:18 Dose: 150 mg Levofloxacin (Levaquin) 250 mg PO Q24H [facility] Last Admin: 01/20/19 16:31 Dose: 250 mg Levofloxacin (Levaquin) 500 mg PO Q24H [facility] Last Admin: 01/20/19 16:31 Dose: 500 mg Melatonin (Melatonin) 9 mg PO BEDTIME [facility] Last Admin: 01/20/19 20:39 Dose: 9 mg Metoprolol Tartrate (Lopressor) 25 mg PO BID [facility] Last Admin: 01/21/19 09:16 Dose: 25 mg Nystatin (Mycostatin) 5 ml PO QID [facility] Last Admin: 01/21/19 11:14 Dose: Not Given Ondansetron HCl (Zofran Odt) 4 mg PO Q6H PRN PRN Reason: Nausea able to take PO Last Admin: 01/20/19 20:55 Dose: 4 mg Ondansetron HCl (Zofran) 4 mg IV Q4H PRN PRN Reason: Nausea/Vomiting Oxycodone HCl (Oxycodone) 5 mg PO Q4H PRN PRN Reason: Pain Last Admin: 01/15/19 20:37 Dose: 5 mg Fluoxetine 40mg Cap ((Ptom)) 0 each PO DAILY [facility] Last Admin: 01/21/19 09:20 Dose: 2 each Verapamil HCl (Calan Sr) 240 mg PO DAILY [facility] Last Admin: 01/21/19 09:17 Dose: 240 mg Discontinued Medications Clonazepam (Klonopin) 1 mg PO BEDTIME [facility] Last Admin: 01/14/19 20:16 Dose: 1 mg Dimethicone/Zinc Oxide (Rash Relief-Zinc Oxide [place]) Confirm Administered Dose 56 gm TOP .STK-MED ONE Stop: 01/19/19 12:50 Last Admin: 01/19/19 13:46 Dose: 1 applic Fluoxetine HCl (Prozac) 80 mg PO DAILY [facility] Last Admin: 01/11/19 11:00 Dose: 80 mg Fluoxetine HCl (Prozac) 80 mg PO DAILY [facility] Last Admin: 01/16/19 08:41 Dose: Not Given Furosemide (Lasix) 20 mg IVPUSH ONETIME ONE Stop: 01/12/19 12:31 Last Admin: 01/12/19 12:32 Dose: 20 mg Furosemide (Lasix) Confirm Administered Dose 20 mg .ROUTE .STK-MED ONE Stop: 01/12/19 12:30 Last Admin: 01/12/19 12:33 Dose: Not Given Furosemide (Lasix) 40 mg IVPUSH NOW ONE Stop: 01/12/19 15:37 Last Admin: 01/12/19 16:09 Dose: 40 mg Furosemide (Lasix) 40 mg IVPUSH NOW ONE Stop: 01/13/19 09:52 Last Admin: 01/13/19 11:30 Dose: 40 mg Furosemide (Lasix) 40 mg IVPUSH ONETIME ONE Stop: 01/16/19 15:27 Last Admin: 01/16/19 15:36 Dose: 40 mg Furosemide (Lasix) Confirm Administered Dose 40 mg .ROUTE .STK-MED ONE Stop: 01/16/19 15:32 Last Admin: 01/16/19 16:23 Dose: Not Given Furosemide (Lasix) 40 mg IVPUSH ONETIME ONE Stop: 01/17/19 10:01 Last Admin: 01/17/19 10:15 Dose: 40 mg Haloperidol Lactate (Haldol) 1 mg IVPUSH Q4H PRN PRN Reason: Agitation Last Admin: 01/16/19 04:42 Dose: 1 mg Hydromorphone HCl (Dilaudid) 0.5 mg IVPUSH ONETIME ONE Stop: 01/12/19 12:01 Last Admin: 01/12/19 12:00 Dose: 0.5 mg Sodium Chloride (Normal Saline) 1,000 mls @ 1,000 mls/hr IV ASDIRECTED [facility] Last Admin: 01/11/19 06:17 Dose: 1,000 mls/hr Sodium Chloride (Normal Saline) 1,000 mls @ 125 mls/hr IV ONETIME ONE Stop: 01/11/19 05:43 Last Admin: 01/10/19 21:45 Dose: 125 mls/hr Potassium Chloride 20 meq/Lidocaine HCl 2 ml/ Sodium Chloride 112 mls @ 50 mls/ hr IV Q2H [facility] Stop: 01/11/19 13:59 Last Admin: 01/11/19 17:25 Dose: 50 mls/hr Piperacillin/Tazobactam/ (Dextrose 3.375 gm/ Premix) 50 mls @ 100 mls/hr IV Q6H [facility] Last Admin: 01/16/19 08:24 Dose: 100 mls/hr Vancomycin HCl 1 gm/ Sodium (Chloride) 250 mls @ 167 mls/hr IV Q24H [facility] Last Admin: 01/12/19 14:05 Dose: 167 mls/hr Heparin Sodium (Porcine) 5,000 (units/ Sodium Chloride) 501 mls @ 0 mls/hr IV ASDIRECTED [facility] Propofol (Diprivan 100 Ml) 100 mls @ 1.45 mls/hr IV TITRATE ELL[facility]; Protocol Last Titration: 01/14/19 11:15 Dose: 0 mcg/kg/min, 0 mls/hr Potassium Chloride 40 meq/ (Premix) 100 mls @ 25 mls/hr IV ONETIME ONE Stop: 01/12/19 19:29 Last Admin: 01/12/19 15:53 Dose: 25 mls/hr Magnesium Sulfate 2 gm/ Premix 50 mls @ 25 mls/hr IV Q6H [facility] Stop: 01/13/19 16:59 Last Admin: 01/13/19 14:55 Dose: 25 mls/hr Potassium Chloride 40 meq/ (Premix) 100 mls @ 25 mls/hr IV ONETIME ONE Stop: 01/13/19 12:59 Last Admin: 01/13/19 08:52 Dose: 25 mls/hr Doxycycline Hyclate 100 mg/ (Sodium Chloride) 100 mls @ 100 mls/hr IV Q12H [facility] Last Admin: 01/15/19 14:52 Dose: 100 mls/hr Sodium Chloride (Normal Saline) 1,000 mls @ 125 mls/hr IV ASDIRECTED [facility] Sodium Chloride (Normal Saline) 1,000 mls @ 0 mls/hr IV ASDIRECTED [facility] Last Admin: 01/16/19 04:18 Dose: 25 mls/hr Potassium Chloride 20 meq/Lidocaine HCl 2 ml/ Sodium Chloride 112 mls @ 56 mls/ hr IV Q2H [facility] Stop: 01/14/19 13:59 Last Admin: 01/14/19 12:08 Dose: 56 mls/hr Potassium Chloride 20 meq/Lidocaine HCl 2 ml/ Sodium Chloride 112 mls @ 56 mls/ hr IV Q2H [facility] Stop: 01/15/19 13:59 Last Admin: 01/15/19 12:53 Dose: 56 mls/hr Sodium Chloride (Normal Saline) 76 mls @ 3 mls/sec IV ASDIRECTED [facility] Stop: 01/15/19 14:16 Last Admin: 01/15/19 14:32 Dose: 3 mls/sec Levofloxacin/Dextrose 750 mg/ (Premix) 150 mls @ 100 mls/hr IV Q24H [facility] Last Admin: 01/17/19 16:52 Dose: 100 mls/hr Magnesium Sulfate 2 gm/ Premix 50 mls @ 12.5 mls/hr IV Q6H [facility] Stop: 01/18/19 19:59 Last Admin: 01/18/19 16:14 Dose: 12.5 mls/hr Ferric Sodium Gluconate Complex 125 mg/ Sodium Chloride 110 mls @ 55 mls/hr IV ONETIME ONE Stop: 01/19/19 13:14 Last Admin: 01/19/19 11:19 Dose: 55 mls/hr Ferric Sodium Gluconate Complex 125 mg/ Sodium Chloride 110 mls @ 55 mls/hr IV ONETIME ONE Stop: 01/20/19 12:59 Last Admin: 01/20/19 11:13 Dose: 55 mls/hr Influenza Virus Vaccine (Pharmacy To Dose - Influenza Vaccine) 1 each IM ONETIME ONE Stop: 01/12/19 11:01 Influenza Virus Vaccine (Fluzone High-Dose Syringe) 180 mcg IM .ONCE ONE Stop: 01/12/19 09:01 Last Admin: 01/12/19 08:47 Dose: Not Given Influenza Virus Vaccine (Pharmacy To Dose - Influenza Vaccine) 1 each IM ONETIME ONE Stop: 01/19/19 13:01 Influenza Virus Vaccine (Fluzone High-Dose Syringe) 180 mcg IM .ONCE ONE Stop: 01/19/19 09:01 Last Admin: 01/19/19 09:15 Dose: 180 mcg Iopamidol (Isovue-300 (61%)) 100 ml IV . DIRECTED PRN PRN Reason: RADIOLOGY EXAM Stop: 01/16/19 14:02 Last Admin: 01/15/19 14:33 Dose: 100 ml Lamotrigine (Lamotrigine) 100 mg PO BID [facility] Last Admin: 01/13/19 17:10 Dose: Not Given Lamotrigine (Lamotrigine) 75 mg PO BID [facility] Last Admin: 01/13/19 17:10 Dose: Not Given Lamotrigine (Lamotrigine) 75 mg .XX BID [facility] Last Admin: 01/14/19 10:06 Dose: 75 mg Lamotrigine (Lamotrigine) 100 mg .XX BID [facility] Last Admin: 01/14/19 10:20 Dose: 100 mg Lamotrigine (Lamotrigine) 75 mg PO BID [facility] Last Admin: 01/15/19 08:15 Dose: 75 mg Lamotrigine (Lamotrigine) 100 mg PO BID [facility] Last Admin: 01/15/19 08:16 Dose: 100 mg Lamotrigine (Lamotrigine) 150 mg PO BID [facility] Last Admin: 01/19/19 09:19 Dose: Not Given Lorazepam (Ativan) 0.5 mg IVPUSH ONETIME ONE Stop: 01/10/19 20:20 Last Admin: 01/10/19 20:45 Dose: 0.5 mg Lorazepam (Ativan) 1 mg IV Q4H PRN PRN Reason: Anxiety Last Admin: 01/12/19 20:07 Dose: 1 mg Lorazepam (Ativan) 0.5 mg IVPUSH ONETIME ONE Stop: 01/12/19 13:37 Last Admin: 01/12/19 13:40 Dose: 0.5 mg Lorazepam (Ativan) 0.5 mg IV Q2H PRN PRN Reason: Anxiety Last Admin: 01/14/19 14:22 Dose: 0.5 mg Lorazepam (Ativan) 0.5 - 1 mg IV Q2H PRN PRN Reason: Anxiety Last Admin: 01/14/19 18:08 Dose: 1 mg Naloxone HCl (Narcan) 0.1 mg IVPUSH ASDIRECTED PRN PRN Reason: Sedation Last Admin: 01/12/19 12:25 Dose: 0.1 mg Non-Formulary Medication (Lamotrigine [Lamictal]) 175 mg PO BID [facility] Last Admin: 01/11/19 01:26 Dose: Not Given Pantoprazole Sodium (Protonix Iv) 40 mg IV BID [facility] Last Admin: 01/11/19 11:01 Dose: 40 mg Pantoprazole Sodium (Protonix) 40 mg PO DAILY@0730 [facility] Last Admin: 01/12/19 08:45 Dose: 40 mg Pantoprazole Sodium (Protonix Iv) 40 mg IVPUSH Q24H [facility] Last Admin: 01/13/19 16:07 Dose: 40 mg Potassium Chloride (Klor-Con M20) 40 meq PO ONETIME ONE Stop: 01/16/19 08:46 Last Admin: 01/16/19 10:26 Dose: 40 meq Potassium Chloride (Klor-Con M20) 40 meq PO BID [facility] Stop: 01/17/19 21:01 Last Admin: 01/17/19 21:47 Dose: 40 meq Potassium Chloride (Klor-Con M20) 40 meq PO ONETIME ONE Stop: 01/18/19 10:31 Last Admin: 01/18/19 10:14 Dose: 40 meq Potassium Chloride (Klor-Con M20) 40 meq PO ONETIME ONE Stop: 01/19/19 09:16 Last Admin: 01/19/19 09:19 Dose: 40 meq Potassium Chloride (Klor-Con M20) 40 meq PO ONETIME ONE Stop: 01/21/19 09:31 Last Admin: 01/21/19 09:21 Dose: 40 meq Propofol (Diprivan 20 Ml) Confirm Administered Dose 200 mg .ROUTE .STK-MED ONE Stop: 01/11/19 09:35 Propofol (Diprivan 20 Ml) 200 mg .ROUTE .STK-MED ONE Stop: 01/12/19 14:01 Vancomycin HCl (Vancomycin) 1 gm IV .PHARMACY TO DOSE [facility] Stop: 01/12/19 14:01 - Exam Quality Assessment: Reports: Supplemental Oxygen, DVT Prophylaxis General: Reports: Alert, Cooperative, No Acute Distress Lungs: Reports: Clear to Auscultation, Normal Respiratory Effort Cardiovascular: Reports: Regular Rate, Regular Rhythm GI/Abdominal Exam: Soft, Non-Tender, No Organomegaly, No Distention Extremities: Non-Tender, No Pedal Edema
== END 2019-01-21 13:12 | DRG 811 ==
LOC: JP.ED 19:12 → JP.MS 22:28 → JP.ICU 01-12 13:00 → JP.MS 01-17 16:41
PROVIDERS: ADMIT Hospitalist; ATTEND Hospitalist
PROC: 0DB48ZX Excision of Esophagogastric Junction, Via Natural or Artificial Opening Endoscopic, Diagnostic (ICD-10-PCS; principal; 2019-01-11)
PROC: 0DB78ZX Excision of Stomach, Pylorus, Via Natural or Artificial Opening Endoscopic, Diagnostic (ICD-10-PCS; 2019-01-11)
PROC: 30233N1 Transfusion of Nonautologous Red Blood Cells into Peripheral Vein, Percutaneous Approach (ICD-10-PCS; 2019-01-11)
PROC: 0BH17EZ Insertion of Endotracheal Airway into Trachea, Via Natural or Artificial Opening (ICD-10-PCS; 2019-01-12)
PROC: 03HC33Z Insertion of Infusion Device into Left Radial Artery, Percutaneous Approach (ICD-10-PCS; 2019-01-12)
PROC: 03HC33Z Insertion of Infusion Device into Left Radial Artery, Percutaneous Approach (ICD-10-PCS; 2019-01-12)
PROC: 5A1945Z Respiratory Ventilation, 24-96 Consecutive Hours (ICD-10-PCS; 2019-01-12)
PROC: 30233N1 Transfusion of Nonautologous Red Blood Cells into Peripheral Vein, Percutaneous Approach (ICD-10-PCS; 2019-01-15)
PROC: 3E02340 Introduction of Influenza Vaccine into Muscle, Percutaneous Approach (ICD-10-PCS; 2019-01-19)
DX: D64.9 Anemia, unspecified (principal); J18.9 Pneumonia, unspecified organism; J96.01 Acute respiratory failure with hypoxia; T82.49XA Other complication of vascular dialysis catheter, initial encounter; F05 Delirium due to known physiological condition; B37.0 Candidal stomatitis; E86.0 Dehydration; K29.70 Gastritis, unspecified, without bleeding; Y92.230 Patient room in hospital as the place of occurrence of the external cause; Z23 Encounter for immunization; R11.2 Nausea with vomiting, unspecified; G40.909 Epilepsy, unspecified, not intractable, without status epilepticus; F41.9 Anxiety disorder, unspecified; I10 Essential (primary) hypertension; K52.9 Noninfective gastroenteritis and colitis, unspecified; R53.1 Weakness; Z99.81 Dependence on supplemental oxygen; Z53.29 Procedure and treatment not carried out because of patient's decision for other reasons; E78.00 Pure hypercholesterolemia, unspecified; K21.9 Gastro-esophageal reflux disease without esophagitis; F32.9 Major depressive disorder, single episode, unspecified; M19.90 Unspecified osteoarthritis, unspecified site; M54.9 Dorsalgia, unspecified; G89.29 Other chronic pain; H54.7 Unspecified visual loss; H91.90 Unspecified hearing loss, unspecified ear; R32 Unspecified urinary incontinence; Z86.010 Personal history of colon polyps; Z90.49 Acquired absence of other specified parts of digestive tract; Z90.710 Acquired absence of both cervix and uterus; Z90.79 Acquired absence of other genital organ(s); Z90.722 Acquired absence of ovaries, bilateral; Z88.5 Allergy status to narcotic agent; F39 Unspecified mood [affective] disorder; F41.0 Panic disorder [episodic paroxysmal anxiety]; G44.89 Other headache syndrome; I35.2 Nonrheumatic aortic (valve) stenosis with insufficiency
CPT/HCPCS: 36415; 80053; 83690; 84443; 85025; 96361; 96374; 99285; J2060; J7030 ×2; 36430; 36600; 70450; 71045; 74177; 80048; 82272; 82728; 82803; 83550; 83605; 83735; 84484; 85018; 85027; 86850; 86900; 86901; 86920; 86922; 87040; 87070; 87077; 87205; 88305; 90471; 90662; 93005; 93306; 94002; 94003; 94640; 94667; 94668; 94762; 97110-GP; 97116-GP; 97161-GP; 97530-GP; A9270-GY; C9113; G0008; J1170; J1630; J1650; J1940; J1956; J2001; J2310; J2543; J2704; J2916; J3370; J3475; J3480; J3490; J7050; J7620-GY; P9016; Q9967

== ENCOUNTER 2019-01-22 03:16 | Emergency (ER) | payer MEDICARE, OTHER ==
--- NOTE | 2019-01-22 04:21 | EDM.PDOCBH ---
ED HPI GENERAL MEDICAL PROBLEM - General Chief Complaint: Behavioral/Psych Stated Complaint: CONFUSION Time Seen by Provider: 01/22/19 03:42 Source of Information: Reports: Patient, RN Notes Reviewed History Limitations: Reports: No Limitations - History of Present Illness INITIAL COMMENTS - FREE TEXT/NARRATIVE: 73-year-old female presents to the emergency department today for evaluation of confusion she was recently admitted the hospital at which time she developed respiratory distress secondary to pneumonia ended up being intubated for a couple days in the ICU was discharged yesterday to a jail this evening she had difficulty did get into a verbal altercation with nursing staff was confused didn't know where she was at was brought here by law enforcement and family members for evaluation at this time she is frustrated but she knows her name she knows where she is at she knows that she got into an altercation of the jail she knows the history of the last few days she denies suicidal ideation denies homicidal ideation does admit to having marital difficulties with her - Related Data Allergies Allergy/AdvReac Type Severity Reaction Status Date / Time codeine AdvReac Nausea Verified 01/22/19 03:49 hydromorphone HCl AdvReac Hallucinati Verified 01/22/19 03:49 [From Dilaudid] ons Home Meds: Home Meds ClonazePAM [KlonoPIN] 1 mg PO BEDTIME 11/27/13 [History] Metoprolol Tartrate [Lopressor] 25 mg PO Q12HR 11/27/13 [History] Verapamil [Verelan] 240 mg PO DAILY 11/27/13 [History] Hydrochlorothiazide 25 mg PO DAILY 02/18/16 [History] Famotidine 20 mg PO DAILY 01/10/19 [History] Hyoscyamine [Levsin] 0.125 mg SL TID PRN 01/10/19 [History] Enoxaparin [Lovenox] 40 mg SUBCUT Q24H syringe 01/12/19 [Rx] FLUoxetine HCl [Fluoxetine HCl] 80 mg PO DAILY 01/16/19 [History] Ferrous Sulfate 325 mg PO BID #60 tablet 01/21/19 [Rx] Lactobacillus Rhamnosus GG [Culturelle] 1 cap PO BID #60 cap 01/21/19 [Rx] lamoTRIgine [LaMICtal] 150 mg PO BID #60 01/21/19 [Rx] oxyCODONE 5 mg PO Q4H PRN #12 tablet 01/21/19 [Rx] Past Medical History HEENT History: Reports: Cataract, Hard of Hearing, Impaired Vision Cardiovascular History: Reports: Heart Murmur, High Cholesterol, Hypertension Respiratory History: Reports: Asthma Gastrointestinal History: Reports: Cholelithiasis, Colon Polyp, GERD, Hemorrhoids Genitourinary History: Reports: Urinary Incontinence 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: Musculoskeletal History: Reports: Back Pain, Chronic, Osteoarthritis Neurological History: Reports: Concussion, Headaches, Chronic, Seizure Psychiatric History: Reports: Aggressive/Hostile Behaviors, Anxiety, Depression , Mood Swings, Panic Attack, Psych Hospitalization(s) Endocrine/Metabolic History: Reports: Obesity/BMI 30+ - Infectious Disease History Infectious Disease History: Reports: Chicken Pox - Past Surgical History Head Surgeries/Procedures: Reports: None HEENT Surgical History: Reports: Cataract Surgery, Tonsillectomy Cardiovascular Surgical History: Reports: None Respiratory Surgical History: Reports: None GI Surgical History: Reports: Cholecystectomy Female Surgical History: Reports: Hysterectomy, Salpingo-Oophorectomy Endocrine Surgical History: Reports: None Neurological Surgical History: Reports: None Musculoskeletal Surgical History: Reports: Carpal Tunnel Dermatological Surgical History: Reports: None Social & Family History - Family History Family Medical History: Noncontributory - Tobacco Use Smoking Status *Q: Unknown Ever Smoked - Caffeine Use Caffeine Use: Reports: Coffee - Living Situation & Occupation Living situation: Reports: , with Family (lives with [place] in [place], [place]. reports raised 5 children: 4 children of her own and 1 extra) ED ROS GENERAL - Review of Systems Review Of Systems: See Below Constitutional: Reports: No Symptoms HEENT: Reports: No Symptoms Respiratory: Reports: No Symptoms Cardiovascular: Reports: No Symptoms GI/Abdominal: Reports: No Symptoms : Reports: No Symptoms Musculoskeletal: Reports: No Symptoms Skin: Reports: No Symptoms Neurological: Reports: No Symptoms Psychiatric: Denies: Homicidal Ideation, Suicidal Ideation ED EXAM, BEHAVIORAL HEALTH - Physical Exam Exam: See Below Exam Limited By: No Limitations General Appearance: Alert, WD/WN, No Apparent Distress Respiratory/Chest: No Respiratory Distress Psychiatric: Alert, Normal Affect, Normal Cognition, Oriented, Other ( Frustrated with current situation). No: Withdrawn, Suicidal Thoughts, Auditory Hallucinations, Visual Hallucinations, Grandiose Thoughts COURSE, BEHAVIORAL HEALTH COMP - Course Vital Signs: Last Vital Signs Temp 96.0 F 01/22/19 05:09 Pulse 91 01/22/19 05:09 Resp 18 01/22/19 05:09 BP 144/73 H 01/22/19 05:09 Pulse Ox 96 01/22/19 05:09 Orders, Labs, Meds: Laboratory Tests 01/22/19 01/22/19 Range/Units 04:42 04:42 Urine Color Yellow Urine Appearance Clear Urine pH 5.0 (4.5-8.0) Ur Specific Guy 1.015 (1.008-1.030) Urine Protein Negative (NEGATIVE) mg/dL Urine Glucose (UA) Normal (NEGATIVE) mg/dL Urine Ketones Negative (NEGATIVE) mg/dL Urine Occult Blood Trace (NEGATIVE) Urine Nitrite Negative (NEGATIVE) Urine Bilirubin Negative (NEGATIVE) Urine Urobilinogen Normal (NORMAL) mg/dL Ur Leukocyte Esterase Negative (NEGATIVE) Urine RBC 0-5 (0-5) Urine WBC 0-5 (0-5) Ur Epithelial Cells Few Amorphous Sediment Not seen Urine Bacteria Few Urine Mucus Not seen Urine Other Urine Opiates Screen Presumptive positive H (NEGATIVE) Ur Oxycodone Screen Negative (NEGATIVE) Urine Methadone Screen Negative (NEGATIVE) Ur Propoxyphene Screen Negative (NEGATIVE) Ur Barbiturates Screen Negative (NEGATIVE) Ur Tricyclics Screen Negative (NEGATIVE) Ur Phencyclidine Scrn Negative (NEGATIVE) Ur Amphetamine Screen Presumptive positive H (NEGATIVE) U Methamphetamines Scrn Presumptive positive H (NEGATIVE) Urine MDMA Screen Negative (NEGATIVE) U Benzodiazepines Scrn Presumptive positive H (NEGATIVE) U Cocaine Metab Screen Negative (NEGATIVE) U Marijuana (THC) Screen Presumptive positive H (NEGATIVE) Discharge vs Psych Eval/Treatment:: 01/22/19 05:26 I called and discussed the case with her who had taken her up from the jail brought here for evaluation. I'm suspicious that she developed a sundowning type syndrome being in a new environment at night became disoriented and confused I then combative and gotten altercation with nursing staff. Her is willing to come here this morning and check with urgency about bring her home Departure - Departure Time of Disposition: 05:28 Disposition: Home, Self-Care 01 Condition: Poor Clinical Impression: Sundowning - Discharge Information Referrals: PCP,None [Primary Care Provider] - Forms: ED Department Discharge Additional Instructions: Please follow-up with your primary care provider at your scheduled appointments following her hospital discharge - Assessment/Plan Plan: Assessment Acuity = acute Site and laterality = confusion state Etiology = probably sundowning with the new environment Manifestations = symptoms resolved Location of injury = Home Lab values = urinalysis positive for opiates, cannabis, benzodiazepines and amphetamines Plan Plan is discharge to care of her , keep scheduled follow-up appointments with primary care This note was dictated using [employer] voice recognition software please call with any questions on syntax or grammar.
[2019-01-22 07:28] VITALS: BP 158/64
[2019-01-22] MEDS ORDERED: Haloperidol Lactate 5 MG/ML SDV IM ONE (08:55)
[2019-01-22] MEDS ORDERED: Haloperidol Lactate 5 MG/ML SDV ONE (08:56)
[2019-01-22] MEDS ORDERED: LORazepam 2 MG/ML SDV IM ONE (09:24)
== END 2019-01-22 10:25 | disposition home or self-care (01) ==
LOC: JP.ED 03:16
DX: F05 Delirium due to known physiological condition (principal); I10 Essential (primary) hypertension; E78.00 Pure hypercholesterolemia, unspecified; J45.909 Unspecified asthma, uncomplicated; Z79.899 Other long term (current) drug therapy; Z88.5 Allergy status to narcotic agent; Z88.6 Allergy status to analgesic agent
CPT/HCPCS: 80305; 81001; 96372; 99284; J1630; J2060; 99283

== ENCOUNTER 2019-02-09 17:23 | Emergency (ER) | payer MEDICARE, OTHER ==
[2019-02-09 17:43] VITALS: BP 143/93
[2019-02-09] MEDS ORDERED: Alum Hydrox/Mag Hydrox/Simeth 15 ML, Lidocaine 2% 15 ML PO ONE ×2 (18:02)
--- NOTE | 2019-02-09 18:12 | EDM.PDOC ---
ED HPI GENERAL MEDICAL PROBLEM - General Stated Complaint: GERD Time Seen by Provider: 02/09/19 18:00 Source of Information: Reports: Patient, Family History Limitations: Reports: No Limitations - History of Present Illness INITIAL COMMENTS - FREE TEXT/NARRATIVE: 73-year-old female with chronic reflux and intermittent abdominal pain who has had extensive workup and treatment, and has a gastroenterology appointment on Monday. She is on 2 medications for reflux including Prevacid. Today it was just so bad she could not tolerated, is epigastric, burning, radiates up under the sternum and does not radiate to the back or arms. No shortness of breath, no nausea or vomiting or diaphoresis. It's very typical of her past symptoms only worse. Onset: Gradual Duration: Hour(s): (Symptoms all day, roughly 7-8 hours) Worsens with: Reports: Other (Somewhat worse when laying down) Associated Symptoms: Reports: No Other Symptoms - Related Data Allergies Allergy/AdvReac Type Severity Reaction Status Date / Time codeine AdvReac Nausea Verified 02/09/19 17:53 hydromorphone HCl AdvReac Hallucinati Verified 02/09/19 17:53 [From Dilaudid] ons Home Meds: Home Meds ClonazePAM [KlonoPIN] 1 mg PO BEDTIME 11/27/13 [History] Metoprolol Tartrate [Lopressor] 50 mg PO Q12HR 11/27/13 [History] Hydrochlorothiazide 25 mg PO DAILY 02/18/16 [History] Hyoscyamine [Levsin] 0.125 mg SL TID PRN 01/10/19 [History] FLUoxetine HCl [Fluoxetine HCl] 80 mg PO DAILY 01/16/19 [History] Lactobacillus Rhamnosus GG [Culturelle] 1 cap PO BID #60 cap 01/21/19 [Rx] lamoTRIgine [LaMICtal] 150 mg PO BID #60 01/21/19 [Rx] Colestipol [Colestipol HCl] 02/09/19 [History] Mirtazapine 02/09/19 [History] Pantoprazole 02/09/19 [History] Past Medical History HEENT History: Reports: Cataract, Hard of Hearing, Impaired Vision Cardiovascular History: Reports: Heart Murmur, High Cholesterol, Hypertension Respiratory History: Reports: Asthma Gastrointestinal History: Reports: Cholelithiasis, Colon Polyp, GERD, Hemorrhoids Genitourinary History: Reports: Urinary Incontinence 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: Musculoskeletal History: Reports: Back Pain, Chronic, Osteoarthritis Neurological History: Reports: Concussion, Headaches, Chronic, Seizure Psychiatric History: Reports: Aggressive/Hostile Behaviors, Anxiety, Depression , Mood Swings, Panic Attack, Psych Hospitalization(s) Endocrine/Metabolic History: Reports: Obesity/BMI 30+ - Infectious Disease History Infectious Disease History: Reports: Chicken Pox - Past Surgical History Head Surgeries/Procedures: Reports: None HEENT Surgical History: Reports: Cataract Surgery, Tonsillectomy Cardiovascular Surgical History: Reports: None Respiratory Surgical History: Reports: None GI Surgical History: Reports: Cholecystectomy Female Surgical History: Reports: Hysterectomy, Salpingo-Oophorectomy Endocrine Surgical History: Reports: None Neurological Surgical History: Reports: None Musculoskeletal Surgical History: Reports: Carpal Tunnel Dermatological Surgical History: Reports: None Social & Family History - Family History Family Medical History: Noncontributory - Tobacco Use Smoking Status *Q: Never Smoker - Caffeine Use Caffeine Use: Reports: Coffee - Living Situation & Occupation Living situation: Reports: , with Family (lives with [place] in [place], [place]. reports raised 5 children: 4 children of her own and 1 extra) ED ROS GENERAL - Review of Systems Review Of Systems: See Below Constitutional: Reports: Malaise. Denies: Fever, Chills HEENT: Reports: No Symptoms Respiratory: Denies: Shortness of Breath Cardiovascular: Denies: Chest Pain GI/Abdominal: Reports: Abdominal Pain, Diarrhea (Patient has chronic diarrhea for years) : Reports: No Symptoms Skin: Reports: No Symptoms Neurological: Denies: Headache ED EXAM, GI/ABD - Physical Exam Exam: See Below Exam Limited By: No Limitations General Appearance: Alert, No Apparent Distress Eyes: Bilateral: Normal Appearance (No jaundice) Respiratory/Chest: No Respiratory Distress, Lungs Clear Cardiovascular: Regular Rate, Rhythm GI/Abdominal Exam: Normal Bowel Sounds, Tender (Reacts with tenderness over the epigastric area, with mild guarding. No masses felt.) Neurological: Alert, Oriented Course - Vital Signs Last Recorded V/S: Last Vital Signs Temp 98.3 F 02/09/19 17:50 Pulse 64 02/09/19 17:50 Resp 16 02/09/19 17:50 BP 143/93 H 02/09/19 17:50 Pulse Ox 97 02/09/19 17:50 - Orders/Labs/Meds Labs: Laboratory Tests 02/09/19 02/09/19 Range/Units 18:15 18:15 WBC 13.6 H (4.5-11.0) K/uL RBC 3.89 (3.30-5.50) M/uL Hgb 10.3 L (12.0-15.0) g/dL Hct 32.0 L (36.0-48.0) % MCV 82 (80-98) fL MCH 27 (27-31) pg MCHC 32 (32-36) % Plt Count 352 (150-400) K/uL Neut % (Auto) 71 H (36-66) % Lymph % (Auto) 19 L (24-44) % [place] % (Auto) 10 H (2-6) % Eos % (Auto) 0 L (2-4) % Baso % (Auto) 0 (0-1) % Sodium 134 L (140-148) mmol/L Potassium 3.5 L (3.6-5.2) mmol/L Chloride 98 L (100-108) mmol/L Carbon Dioxide 26 (21-32) mmol/L Anion Gap 13.5 (5.0-14.0) mmol/L BUN 14 (7-18) mg/dL Creatinine 0.8 (0.6-1.0) mg/dL Est Cr Clr Drug Dosing 46.33 mL/min Estimated GFR (MDRD) > 60 (>60) Glucose 103 (74-106) mg/dL Calcium 8.8 (8.5-10.1) mg/dL Total Bilirubin 0.5 (0.2-1.0) mg/dL AST 16 (15-37) U/L ALT 10 L (12-78) U/L Alkaline Phosphatase 116 (46-116) U/L Total Protein 7.3 (6.4-8.2) g/dL Albumin 2.6 L (3.4-5.0) g/dL Globulin 4.7 H (2.3-3.5) g/dL Albumin/Globulin Ratio 0.6 L (1.2-2.2) Lipase 237 (73-393) U/L Meds: Medications Discontinued Medications Generic Name Dose Route Start Last Admin Trade Name Freq PRN Reason Stop Dose Admin Al Hydroxide/Mg Hydroxide 15 0 ml 02/09/19 18:02 02/09/19 18:17 ml/ Lidocaine HCl 15 ml PO 02/09/19 18:03 30 ml ONETIME ONE Administration Lorazepam 1 mg 02/09/19 18:45 02/09/19 18:49 Ativan PO 02/09/19 18:46 1 mg ONETIME ONE Administration - Re-Assessments/Exams Free Text/Narrative Re-Assessment/Exam: 02/09/19 18:12 CBC, CMP and lipase were obtained and the patient was given a GI cocktail. 02/09/19 18:46 lipase was negative, CMP generally normal. White count was mildly elevated at 13.6. GI cocktail really didn't seem to make a difference, she did comment however that she didn't think it would help because the pain has been there for "2 years". She is very anxious so was given 1 mg of oral Ativan, copies of her lab work and encouraged to keep her appointment on Monday with gastroenterology , taking her lab results with her. No medication changes 02/09/19 18:58 Prior to discharge patient commented that sublingual Zofran has helped her in the past, she was given 5 doses. Departure - Departure Time of Disposition: 19:02 Disposition: Home, Self-Care 01 Condition: Fair Clinical Impression: Reflux esophagitis Abdominal pain Qualifiers: Abdominal location: epigastric Qualified Code(s): R10.13 - Epigastric pain - Discharge Information Instructions: Gastroesophageal Reflux Disease, Adult Referrals: Leonid Goddard MD [Primary Care Provider] - Forms: ED Department Discharge Care Plan Goals: Consider just bland foods for the next 2 days, continue your current medications and recheck on Monday as scheduled. Return to the emergency room if worsening such as you develop a fever or persistent vomiting.
[2019-02-09] MEDS ORDERED: LORazepam 1 MG Tab PO ONE (18:45)
== END 2019-02-09 19:02 | disposition home or self-care (01) ==
LOC: JP.ED 17:23
DX: K21.0 Gastro-esophageal reflux disease with esophagitis (principal); I10 Essential (primary) hypertension; E66.9 Obesity, unspecified; Z88.5 Allergy status to narcotic agent; Z88.6 Allergy status to analgesic agent; Z79.899 Other long term (current) drug therapy
CPT/HCPCS: 36415; 80053; 83690; 85025; 99284; A9270

== ENCOUNTER 2019-02-27 10:28 | Emergency (ER) | payer MEDICARE, OTHER ==
[2019-02-27 10:43] VITALS: BP 142/71
--- NOTE | 2019-02-27 11:20 | CRLCR ---
INDICATION: Shortness of breath COMPARISON: Portable chest dated 01/16/2019 TECHNIQUE: Two view chest. FINDINGS: There is stable moderate cardiac enlargement. The pulmonary vessels show central congestion and there is thickening of several interlobular septi within the peripheral lung smith. However, there is no evidence of pleural effusion. There are no focal infiltrates or masses. There is no evidence pneumothorax. IMPRESSION: Radiographic findings would indicate early interstitial edema. Dictated by Gera Mayers MD @ 02/27/2019 11:19:35 AM Dictated by: Gera Mayers MD @ 02/27/2019 11:19:42 (Electronically Signed)
[2019-02-27] MEDS: LORazepam 1 MG Tab PO ONE (11:36)
--- NOTE | 2019-02-27 11:39 | EDM.PDOC ---
ED HPI GENERAL MEDICAL PROBLEM - General Chief Complaint: Respiratory Problem Stated Complaint: SOB Time Seen by Provider: 02/27/19 10:45 Source of Information: Reports: Patient, Family History Limitations: Reports: No Limitations - History of Present Illness INITIAL COMMENTS - FREE TEXT/NARRATIVE: 74-year-old female arrives very anxious, concerned about her health, concerned about persistent epigastric discomfort which is been present for years, and a 5 hour period this morning where she had difficulty breathing. It started at about 5 AM when she was having a lot of her abdominal discomfort and burning and she started feeling short of breath. Within one hour her respirations increased and she felt like she couldn't take a deep breath. She developed some paresthesias of the hands and felt very uncomfortable. She denies a cough or fever. 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 Still anxious. Onset: Unknown/Unsure Associated Symptoms: Reports: Chest Pain (Chronic), Malaise, Shortness of Breath. Denies: Cough, Diaphoresis, Fever/Chills, Loss of Appetite, Nausea/ Vomiting Sternum Pain Score (Numeric/FACES): 10 - Related Data Allergies Allergy/AdvReac Type Severity Reaction Status Date / Time codeine AdvReac Nausea Verified 02/27/19 10:38 hydromorphone HCl AdvReac Hallucinati Verified 02/27/19 10:38 [From Dilaudid] ons Home Meds: Home Meds Metoprolol Tartrate [Lopressor] 50 mg PO Q12HR 11/27/13 [History] Hydrochlorothiazide 25 mg PO DAILY 02/18/16 [History] Hyoscyamine [Levsin] 0.125 mg SL TID PRN 01/10/19 [History] FLUoxetine HCl [Fluoxetine HCl] 80 mg PO DAILY 01/16/19 [History] Lactobacillus Rhamnosus GG [Culturelle] 1 cap PO BID #60 cap 01/21/19 [Rx] lamoTRIgine [LaMICtal] 150 mg PO BID #60 01/21/19 [Rx] Colestipol [Colestipol HCl] 1 tab PO DAILY 02/09/19 [History] Mirtazapine 15 mg PO DAILY 02/09/19 [History] Pantoprazole 20 mg PO DAILY 02/09/19 [History] Albuterol Sulfate [Albuterol Sulfate Hfa] 8.5 gm IH ASDIRECTED PRN 02/27/19 [ History] Past Medical History HEENT History: Reports: Cataract, Hard of Hearing, Impaired Vision Cardiovascular History: Reports: Heart Murmur, High Cholesterol, Hypertension Respiratory History: Reports: Asthma Gastrointestinal History: Reports: Cholelithiasis, Colon Polyp, GERD, Hemorrhoids Genitourinary History: Reports: Urinary Incontinence 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: Musculoskeletal History: Reports: Back Pain, Chronic, Osteoarthritis Neurological History: Reports: Concussion, Headaches, Chronic, Seizure Psychiatric History: Reports: Aggressive/Hostile Behaviors, Anxiety, Depression , Mood Swings, Panic Attack, Psych Hospitalization(s) Endocrine/Metabolic History: Reports: Obesity/BMI 30+ - Infectious Disease History Infectious Disease History: Reports: Chicken Pox - Past Surgical History Head Surgeries/Procedures: Reports: None HEENT Surgical History: Reports: Cataract Surgery, Tonsillectomy Cardiovascular Surgical History: Reports: None Respiratory Surgical History: Reports: None GI Surgical History: Reports: Cholecystectomy Female Surgical History: Reports: Hysterectomy, Salpingo-Oophorectomy Endocrine Surgical History: Reports: None Neurological Surgical History: Reports: None Musculoskeletal Surgical History: Reports: Carpal Tunnel Dermatological Surgical History: Reports: None Social & Family History - Family History Family Medical History: Noncontributory - Tobacco Use Smoking Status *Q: Former Smoker Used Tobacco, but Quit: Yes Month/Year Tobacco Last Used: 1989 - Caffeine Use Caffeine Use: Reports: Soda - Recreational Drug Use Recreational Drug Use: No - Living Situation & Occupation Living situation: Reports: , with Family (lives with [facility] in [place], [place]. reports raised 5 children: 4 children of her own and 1 extra) ED ROS GENERAL - Review of Systems Review Of Systems: See Below Constitutional: Denies: Fever, Chills HEENT: Denies: Throat Pain Respiratory: Reports: Shortness of Breath. Denies: Cough Cardiovascular: Reports: Chest Pain GI/Abdominal: Reports: Abdominal Pain, Diarrhea : Reports: No Symptoms Musculoskeletal: Reports: Other ("Aches all over") Neurological: Denies: Headache Psychiatric: Reports: Anxiety ED EXAM, GENERAL - Physical Exam Exam: See Below Exam Limited By: No Limitations General Appearance: Alert, Anxious (Still very anxious but not currently hyperventilating. O2 saturations are 97%, respirations 18 temperature 96) Head: Atraumatic Respiratory/Chest: No Respiratory Distress, Rales (A few posterior basilar rales are heard but no significant wheezing or rhonchi.) Cardiovascular: Regular Rate, Rhythm GI/Abdominal: Other (Reacts with tenderness across the upper abdomen even with light palpation which is characteristic of her exam chronically) Neurological: Alert, Oriented, Other (Fine resting tremor of the hands) Psychiatric: Anxious Course - Vital Signs Last Recorded V/S: Last Vital Signs Temp 96 F 02/27/19 10:42 Pulse 85 02/27/19 10:42 Resp 18 02/27/19 10:42 BP 142/71 H 02/27/19 10:42 Pulse Ox 97 02/27/19 10:42 - Orders/Labs/Meds Meds: Medications Discontinued Medications Generic Name Dose Route Start Last Admin Trade Name Freq PRN Reason Stop Dose Admin Lorazepam 1 mg 02/27/19 11:32 02/27/19 11:36 Ativan PO 02/27/19 11:33 1 mg ONETIME ONE Administration - Re-Assessments/Exams Free Text/Narrative Re-Assessment/Exam: 02/27/19 11:37 A two-view chest x-ray was obtained which showed generally clearing of the infiltrates that were present 2 months ago. Mild cardiomegaly but no effusions. I had a long discussion with the patient considering her chest x-ray result in her symptoms and within 20 minutes she was feeling much better except for some epigastric discomfort which has been present for years. Her symptoms have strong somatic component with anxiety, this morning she likely was hyperventilating. I discussed her situation with her primary provider Dr. Goddard , and he will reassess her tomorrow morning at 8:00 and discuss any future testing or treatments that might be available. I did give her 1 mg of oral Ativan today. No other new medications or prescriptions were offered. She will return later today if she feels she is worsening, especially if fever develops or shortness of breath is persistent. Departure - Departure Time of Disposition: 11:45 Disposition: Home, Self-Care 01 Clinical Impression: Hyperventilation syndrome, Anxiety about health, Chronic abdominal pain - Discharge Information Instructions: Hyperventilation Referrals: Leonid Goddard MD [Primary Care Provider] - Forms: ED Department Discharge Care Plan Goals: Rest today, increase activity as tolerated and recheck with your regular doctor at [facility] tomorrow morning at 8:00. You can return to the emergency room today if you feel you're worsening such as fever or persistent shortness of breath.
== END 2019-02-27 11:45 | disposition home or self-care (01) ==
LOC: JP.ED 10:28
DX: K21.0 Gastro-esophageal reflux disease with esophagitis (principal); I10 Essential (primary) hypertension; E66.9 Obesity, unspecified; Z98.49 Cataract extraction status, unspecified eye; Z98.890 Other specified postprocedural states; Z90.49 Acquired absence of other specified parts of digestive tract; Z90.710 Acquired absence of both cervix and uterus; Z90.722 Acquired absence of ovaries, bilateral; Z88.5 Allergy status to narcotic agent; Z79.899 Other long term (current) drug therapy
CPT/HCPCS: 71046; 99283; 99284; A9270

== ENCOUNTER 2019-03-04 10:24 | Emergency (ER) | payer MEDICARE, OTHER ==
[2019-03-04 10:37] VITALS: BP 146/39
--- NOTE | 2019-03-04 11:26 | EDM.PDOC ---
ED HPI GENERAL MEDICAL PROBLEM - General Chief Complaint: General Stated Complaint: STOMACH PAIN Time Seen by Provider: 03/04/19 10:45 Source of Information: Reports: Patient, Family History Limitations: Reports: No Limitations - History of Present Illness INITIAL COMMENTS - FREE TEXT/NARRATIVE: 74-year-old female with chronic anxiety, abdominal and chest discomfort was seen last week on and assessed and responded antigravity medication. She was rechecked by her primary provider on Monday, some medication changes were done but she had a long very symptomatic weekend with a lot of abdominal cramps, persistent nausea and anxiety. She arrives this morning short of breath , nausea, and very uncomfortable and appears to be very anxious. Onset: Unknown/Unsure Abdomen Pain Score (Numeric/FACES): 10 - Related Data Allergies Allergy/AdvReac Type Severity Reaction Status Date / Time codeine AdvReac Nausea Verified 03/04/19 10:30 hydromorphone HCl AdvReac Hallucinati Verified 03/04/19 10:30 [From Dilaudid] ons Home Meds: Home Meds Metoprolol Tartrate [Lopressor] 50 mg PO Q12HR 11/27/13 [History] Hydrochlorothiazide 25 mg PO DAILY 02/18/16 [History] Hyoscyamine [Levsin] 0.125 mg SL TID PRN 01/10/19 [History] FLUoxetine HCl [Fluoxetine HCl] 80 mg PO DAILY 01/16/19 [History] Lactobacillus Rhamnosus GG [Culturelle] 1 cap PO BID #60 cap 01/21/19 [Rx] lamoTRIgine [LaMICtal] 150 mg PO BID #60 01/21/19 [Rx] Colestipol [Colestipol HCl] 1 tab PO DAILY 02/09/19 [History] Mirtazapine 15 mg PO DAILY 02/09/19 [History] Pantoprazole 20 mg PO DAILY 02/09/19 [History] Albuterol Sulfate [Albuterol Sulfate Hfa] 8.5 gm IH ASDIRECTED PRN 02/27/19 [ History] Past Medical History HEENT History: Reports: Cataract, Hard of Hearing, Impaired Vision Cardiovascular History: Reports: Heart Murmur, High Cholesterol, Hypertension Respiratory History: Reports: Asthma Gastrointestinal History: Reports: Cholelithiasis, Colon Polyp, GERD, Hemorrhoids Genitourinary History: Reports: Urinary Incontinence [employer] History: Reports: Musculoskeletal History: Reports: Back Pain, Chronic, Osteoarthritis Neurological History: Reports: Concussion, Headaches, Chronic, Seizure Psychiatric History: Reports: Aggressive/Hostile Behaviors, Anxiety, Depression , Mood Swings, Panic Attack, Psych Hospitalization(s) Endocrine/Metabolic History: Reports: Obesity/BMI 30+ - Infectious Disease History Infectious Disease History: Reports: Chicken Pox - Past Surgical History HEENT Surgical History: Reports: Cataract Surgery, Tonsillectomy GI Surgical History: Reports: Cholecystectomy Female Surgical History: Reports: Hysterectomy, Salpingo-Oophorectomy Musculoskeletal Surgical History: Reports: Carpal Tunnel Social & Family History - Family History Family Medical History: Noncontributory - Tobacco Use Smoking Status *Q: Never Smoker - Caffeine Use Caffeine Use: Reports: None - Recreational Drug Use Recreational Drug Use: No - Living Situation & Occupation Living situation: Reports: , with Family (lives with Ham in [place], [place]. reports raised 5 children: 4 children of her own and 1 extra) ED ROS GENERAL - Review of Systems Review Of Systems: See Below Constitutional: Reports: Malaise, Decreased Appetite. Denies: Fever, Chills HEENT: Reports: No Symptoms Respiratory: Reports: Shortness of Breath Cardiovascular: Reports: Chest Pain GI/Abdominal: Reports: Abdominal Pain, Nausea. Denies: Diarrhea Skin: Denies: No Symptoms Neurological: Reports: Dizziness. Denies: Headache Psychiatric: Reports: Anxiety ED EXAM, GENERAL - Physical Exam Exam: See Below Exam Limited By: No Limitations General Appearance: Alert, Mild Distress, Other (Calmed down after arrival) Respiratory/Chest: No Respiratory Distress, Lungs Clear Cardiovascular: Regular Rate, Rhythm GI/Abdominal: Tender (Reacts with tenderness to palpation anywhere over the upper abdomen and lower chest which is her typical baseline exam) Neurological: Alert, Oriented Psychiatric: Anxious Skin Exam: Warm, Dry Course - Vital Signs Last Recorded V/S: Last Vital Signs Temp 96.5 F 03/04/19 10:32 Pulse 66 03/04/19 10:32 Resp 28 H 03/04/19 10:32 BP 146/39 H 03/04/19 10:32 Pulse Ox 99 03/04/19 10:32 - Orders/Labs/Meds Labs: Laboratory Tests 03/04/19 03/04/19 03/04/19 Range/Units 10:26 10:26 10:57 WBC 13.1 H (4.5-11.0) K/uL RBC 3.72 (3.30-5.50) M/uL Hgb 10.4 L (12.0-15.0) g/dL Hct 32.3 L (36.0-48.0) % MCV 87 (80-98) fL MCH 28 (27-31) pg MCHC 32 (32-36) % Plt Count 238 (150-400) K/uL Neut % (Auto) 67 H (36-66) % Lymph % (Auto) 22 L (24-44) % [place] % (Auto) 10 H (2-6) % Eos % (Auto) 1 L (2-4) % Baso % (Auto) 0 (0-1) % ABG Hemoglobin 10.5 L (12.0-16.0) g/dL ABG Oxyhemoglobin 27.1 % ABG Carboxyhemoglobin 1.3 (0.0-1.6) % ABG Methemoglobin 0.9 % VBG pH 7.386 (7.350-7.450) VBG pCO2 32.0 mm/Hg VBG pO2 21.8 mm/Hg VBG HCO3 18.7 mmol/L VBG Total CO2 17.6 mmol/L VBG O2 Saturation 27.7 VBG O2 Content 4.0 %vol VBG Base Excess -5.0 mm/L O2 Delivery Device Room air Sodium 136 L (140-148) mmol/L Potassium 5.3 H (3.6-5.2) mmol/L Chloride 101 (100-108) mmol/L Carbon Dioxide 19 L (21-32) mmol/L Anion Gap 21.3 H (5.0-14.0) mmol/L BUN 44 H D (7-18) mg/dL Creatinine 1.7 H D (0.6-1.0) mg/dL Est Cr Clr Drug Dosing 21.49 mL/min Estimated GFR (MDRD) 30 L (>60) Glucose 167 H (74-106) mg/dL Calcium 9.0 (8.5-10.1) mg/dL Urine Opiates Screen (NEGATIVE) Ur Oxycodone Screen (NEGATIVE) Urine Methadone Screen (NEGATIVE) Ur Propoxyphene Screen (NEGATIVE) Ur Barbiturates Screen (NEGATIVE) Ur Tricyclics Screen (NEGATIVE) Ur Phencyclidine Scrn (NEGATIVE) Ur Amphetamine Screen (NEGATIVE) U Methamphetamines Scrn (NEGATIVE) Urine MDMA Screen (NEGATIVE) U Benzodiazepines Scrn (NEGATIVE) U Cocaine Metab Screen (NEGATIVE) U Marijuana (THC) Screen (NEGATIVE) 03/04/19 Range/Units 11:47 WBC (4.5-11.0) K/uL RBC (3.30-5.50) M/uL Hgb (12.0-15.0) g/dL Hct (36.0-48.0) % MCV (80-98) fL MCH (27-31) pg MCHC (32-36) % Plt Count (150-400) K/uL Neut % (Auto) (36-66) % Lymph % (Auto) (24-44) % [place] % (Auto) (2-6) % Eos % (Auto) (2-4) % Baso % (Auto) (0-1) % ABG Hemoglobin (12.0-16.0) g/dL ABG Oxyhemoglobin % ABG Carboxyhemoglobin (0.0-1.6) % ABG Methemoglobin % VBG pH (7.350-7.450) VBG pCO2 mm/Hg VBG pO2 mm/Hg VBG HCO3 mmol/L VBG Total CO2 mmol/L VBG O2 Saturation VBG O2 Content %vol VBG Base Excess mm/L O2 Delivery Device Sodium (140-148) mmol/L Potassium (3.6-5.2) mmol/L Chloride (100-108) mmol/L Carbon Dioxide (21-32) mmol/L Anion Gap (5.0-14.0) mmol/L BUN (7-18) mg/dL Creatinine (0.6-1.0) mg/dL Est Cr Clr Drug Dosing mL/min Estimated GFR (MDRD) (>60) Glucose (74-106) mg/dL Calcium (8.5-10.1) mg/dL Urine Opiates Screen Negative (NEGATIVE) Ur Oxycodone Screen Negative (NEGATIVE) Urine Methadone Screen Negative (NEGATIVE) Ur Propoxyphene Screen Negative (NEGATIVE) Ur Barbiturates Screen Negative (NEGATIVE) Ur Tricyclics Screen Negative (NEGATIVE) Ur Phencyclidine Scrn Negative (NEGATIVE) Ur Amphetamine Screen Negative (NEGATIVE) U Methamphetamines Scrn Negative (NEGATIVE) Urine MDMA Screen Negative (NEGATIVE) U Benzodiazepines Scrn Negative (NEGATIVE) U Cocaine Metab Screen Negative (NEGATIVE) U Marijuana (THC) Screen Presumptive positive H (NEGATIVE) - Re-Assessments/Exams Free Text/Narrative Re-Assessment/Exam: 03/04/19 14:49 ABGs were obtained which showed no evidence of hyperventilation affecting the blood gases. CBC was stable with a hemoglobin of 10 and white count of 13 which is consistent with last week's readings. A urine drug screen was done which showed positive for marijuana. A long discussion regarding the patient's care was done with the hospitalist service in [facility]. It was felt that until the marijuana is clear no further workup is needed. Without any treatment after an hour and a half the patient calm down significantly in the emergency room. I discussed with her the possibility of the chronic marijuana use worsening her symptoms and she was receptive and we will try until her next gastroenterology appointment without marijuana. Departure - Departure Time of Disposition: 12:43 Disposition: Home, Self-Care 01 Clinical Impression: Cannabinoid hyperemesis syndrome - Discharge Information Instructions: Cannabis Use Disorder Referrals: Leonid Goddard MD [Primary Care Provider] - Forms: ED Department Discharge Care Plan Goals: Continue current medications but stop marijuana use for the next several weeks until your gastroenterology appointment.
== END 2019-03-04 12:44 | disposition home or self-care (01) ==
LOC: JP.ED 10:24
DX: F12.288 Cannabis dependence with other cannabis-induced disorder (principal); I10 Essential (primary) hypertension; E78.00 Pure hypercholesterolemia, unspecified; J45.909 Unspecified asthma, uncomplicated; F12.188 Cannabis abuse with other cannabis-induced disorder; Z88.5 Allergy status to narcotic agent; Z90.49 Acquired absence of other specified parts of digestive tract; Z79.899 Other long term (current) drug therapy
CPT/HCPCS: 36415; 80048; 80305-QW; 82803; 85025; 99283; 99284